=== PATIENT | male | born 1955 | race Caucasian/White ===

== ENCOUNTER 2024-07-04 07:08 | Outpatient (CLI) | payer MEDICARE, SELFPAY ==
--- NOTE | ~2024-07-04 | CT_ITS ---
CT Scan of the Chest without Contrast: Clinical Indication: Lung cancer screening, nicotine dependence Technique: Contiguous sections were acquired throughout the chest without intravenous contrast. Dose reduction technique was used on this scan by utilizing automated exposure control and iterative recon struction technique. The dose-length product (DLP) was 98.97 mGy-cm. Findings: There is no evidence of any significant mediastinal, hilar or axillary lymphadenopathy. Coronary alpa ry calcifications are present. There is no evidence of pleural or pericardial effusion. The lungs are clear. No pulmonary nodules or infiltrates are noted. Images through the upper abdomen reveal no abnormalities. Impression: Lung RADS 1: Negative. 12 month follow-up screening CT advised. Reviewed, dictated and finalized at location . T HEALTH MANAGER Impression: Lung RADS 1: Negative. 12 month follow-up screening CT advised.
--- OUTSIDE RECORDS SUMMARY | 2024-07-04 07:15 | XMS_ITS | Data Portability ---
Author Organization [facility] MUMTAZNani [facility] Address [address] [place], [place] [address] [address] Assessment No assessment recorded. Plan of Treatment Reminders Order Date Submit Date Provider Last Modified By Organization Details Last Modified Time Details Appointments None recorded. Lab vitamin B12 + folate, serum or blood 2018 019 SYLWIA AstridMABEL, [address] [place], [place] [address] William, [address], [place], [address], 9 08:24:41 PSA, serum or plasma 2017 018 SYLWIA LABMABELRP, [address] [place], [place] [address]Something[employer]ie William, [address], [place], [address], 8 13:11:42 CMP, serum or plasma 2016 017 SYLWIA LABMBAEL, [address] [place], [place] [address]SomethingIndie William, [address], [place], [address], 7 06:14:52 PSA, total + free, serum or plasma 2016 017 [facility], [address] [place], [place] [address]SomethingIndie William, [address], [place], [address], 7 06:14:52 hemoglobin , qualitativ e, stool by immunologi c method 2016 017 SYLWIA AstridMABEL, [facility] [employer] William, [address], [place], [address], 7 17:19:05 Referral gastroente rologist referral - please contact patient to schedule thanks 2017 018 Alessandro Bucio MD, [address], [address], [place], [address], 9 16:16:37 gastroente rologist referral - Please call patient to schedule appt. alconchucho 2016 017 [email or web address] Eric Galdamez MD, [address] [place], [address], 7 15:21:34 Procedures None recorded. Surgeries None recorded. Imaging None recorded. Medication Orders omeprazole 40 mg capsule,de layed release 2018 019 [facility], [address] [place], [address], 9 13:21:36 losartan 100 mg-hydroch lorothiazi de 25 mg tablet 2018 019 [facility], [address] [place], [address], 9 13:21:35 omeprazole 20 mg capsule,de layed release 2017 018 [facility], [address] [place], [address], 9 12:55:00 losartan 100 mg-hydroch lorothiazi de 25 mg tablet 2017 018 [facility], [address] [place], [address], 8 16:40:14 omeprazole 40 mg capsule,de layed release 2017 018 [facility], [address] [place], [address], 8 16:32:53 losartan 100 mg-hydroch lorothiazi de 25 mg tablet 2017 018 [facility], [address] [place], [address], 8 16:32:54 finasterid e 5 mg tablet 2017 018 [facility], [address] [place], [address], 9 12:54:31 omeprazole 40 mg capsule,de layed release 2016 017 [facility], [address] [place], [address], 7 17:14:35 losartan 100 mg-hydroch lorothiazi de 25 mg tablet 2016 017 [facility], [address] [place], [address], 7 17:14:37 trazodone 50 mg tablet 2016 017 [facility], [address] [place], [address], 8 16:21:15 finasterid e 5 mg tablet 2016 017 [facility], [address] [place], [address], 9 12:54:31 Patient TargetsNo targets recorded. Patient Instructions Encounter Date Encounter Id Patient Instructions Last Modified By Organization Details Last Modified Time 11/24/2016 [id number] insomnia: care instructions [facility] Not available 11/24/2016 17:19:13 07/18/2017 [id number] learning about high blood pressure [facility] Not available 07/18/2017 16:29:24 benign prostatic hyperplasia: care instructions [facility] Not available 07/18/2017 16:29:24 01/17/2018 [id number] learning about high blood pressure [facility] Not available 01/17/2018 16:29:43 10/03/2018 [id number] learning about high blood pressure [facility] Not available 10/03/2018 13:10:54 03/20/2019 [id number] influenza (flu) vaccine: care instructions [facility] Not available 03/20/2019 15:57:12 Reason for Referral Please call patient to daniella salgado Referring Physician: Alyson Stack, Internal Medicine, Encounter Date: 11/24/2016 Granular Operator Referral for Screening for malignant neoplasm of colon please contact patient to schedule thanks Referring Physician: Alyson Stack, Internal Medicine, Encounter Date: 01/17/2018 Results Created Date Observation Date Name Description Value Unit Range Abnormal Flag Note LastModifiedBy Organization Detail LastModifiedTime 12/10/19 17 12/10/2016 CMP, serum or plasm a glucose, serum 103 mg/dL 65-99 above high normal Not Available [facility] ([facility]) [address] [place], [address], 12/10/2016 06:14:52 12/10/19 17 12/10/2016 CMP, serum or plasm a BUN 14 mg/dL 6-24 Not Available [facility] ([facility]) [address] [place], [address], 12/10/2016 06:14:52 12/10/19 17 12/10/2016 CMP, serum or plasm a creatinine, serum 0.95 mg/dL 0.76-1 .27 Not Available [facility] ([facility]) [address] [place], [address], 12/10/2016 06:14:52 12/10/19 17 12/10/2016 CMP, serum or plasm a eGFR if nonafricn AM 87 mL/mi n/1.7 3 >59 Not Available [facility] ([facility]) [address] [place], [address], 12/10/2016 06:14:52 12/10/19 17 12/10/2016 CMP, serum or plasm a eGFR if africn AM 101 mL/mi n/1.7 3 >59 Not Available [facility] ([facility]) [address] [facility], [place], [address], 12/10/2016 06:14:52 12/10/19 17 12/10/2016 CMP, serum or plasm a BUN/creatini ne ratio 15 9-20 Not Available [facility] ([facility]) [address] [facility] [place], [address], 12/10/2016 06:14:52 12/10/19 17 12/10/2016 CMP, serum or plasm a sodium, serum 140 mmol/ L 134-14 4 Not Available [facility] ([facility]) [address] [facility], [place], [address], 12/10/2016 06:14:52 12/10/19 17 12/10/2016 CMP, serum or plasm a potassium, serum 5.0 mmol/ L 3.5-5. 2 Not Available [facility] ([facility]) [address] [facility], [place], [address], 12/10/2016 06:14:52 12/10/19 17 12/10/2016 CMP, serum or plasm a chloride, serum 97 mmol/ L 96-106 Not Available [facility] ([facility]) [address] [facility], [place], [address], 12/10/2016 06:14:52 12/10/1912/10/2016 CMP, serum or plasm a carbon dioxide, total 27 mmol/ L 18-29 Not Available [facility] ([facility]) [address] [facility] [place], [address], 12/10/2016 06:14:52 12/10/1912/10/2016 CMP, serum or plasm a calcium, serum 9.5 mg/dL 8.7-10 .2 Not Available [facility] ([facility]) [address] [place], [address], 12/10/2016 06:14:52 12/10/1912/1012/10/2016 CMP, serum or plasm a protein, total, serum 7.1 g/dL 6.0-8. 5 Not Available [facility] ([facility]) [address] [facility] [place], [address], 12/10/2016 06:14:52 12/10/19 17 12/10/2016 CMP, serum or plasm a albumin, serum 4.6 g/dL 3.5-5. 5 Not Available [facility] ([facility]) [address] [facility] [place], [address], 12/10/2016 06:14:52 12/10/1912/10/2016 CMP, serum or plasm a globulin, total 2.5 g/dL 1.5-4. 5 Not Available [facility] ([facility]) [address] [facility] [place], [address], 12/10/2016 06:14:52 12/10/1912/10/2016 CMP, serum or plasm a A/G ratio 1.8 1.2-2. 2 Not Available [facility] ([facility]) [address] [facility] [place], [address], 12/10/2016 06:14:52 12/10/1912/10/2016 CMP, serum or plasm a bilirubin, total 0.3 mg/dL 0.0-1. 2 Not Available [facility] ([facility]) [address] [facility] [place], [address], 12/10/2016 06:14:52 12/10/1912/10/2016 CMP, serum or plasm a alkaline phosphatase, S 62 IU/L 39-117 Not Available [facility] ([facility]) [address] [facility] [place], [address], 12/10/2016 06:14:52 12/10/1912/10/2016 CMP, serum or plasm a AST (SGOT) 20 IU/L 0-40 Not Available [facility] ([facility]) [address] [facility], [place], [address], 12/10/2016 06:14:52 12/10/1912/10/2016 CMP, serum or plasm a ALT (SGPT) 30 IU/L 0-44 Not Available [facility] ([facility]) [address] [facility], [place], [address], 12/10/2016 06:14:52 12/10/1912/10/2016 PSA, total + free, serum or plasm a prostate specific Ag, serum 1.0 NG/mL 0.0-4. 0 ANTHONY ECLIA METHO DOLOG Y. ACCOR DING TO THE AMERI CAN UROLO GICAL ASSOC IATIO N, SERUM PSA SHOUL D DECRE ASE AND REMAI N AT UNDET ECTAB LE LEVEL S AFTER RADIC AL PROST ATECT JORDAN. THE AUA DEFIN ES BIOCH EMICA L RECUR RENCE AN INITI AL PSA VALUE 0.2 NG/ML OR GREAT ER FOLLO WED BY A SUBSE QUENT CONFI RMATO RY PSA VALUE 0.2 NG/ML OR GREAT ER. VALUE S OBTAI KRANTHI WITH DIFFE RENT ASSAY METHO DS OR KITS CANNO T BE USED INTER WEISS INGRID . RESUL TS CANNO T BE INTER PRETE D ABSOL [place] EVIDE NCE OF THE PRESE NCE OR ABSEN CE OF [place] SE. Not Available [facility] ([facility]) [address] [facility], [place], [address], 12/10/2016 06:14:52 12/10/1912/10/2016 PSA, total + free, serum or plasm a PSA, free 0.25 NG/mL n/a ANTHONY ECLIA METHO DOLOG Y. Not Available [facility] ([facility]) [address] [facility], [place], [address], 12/10/2016 06:14:52 12/10/1912/10/2016 PSA, total + free, serum or plasm a % free PSA 25.0 % THE TABLE BELOW LISTS THE PROBA BILIT Y OF PROST ATE CANCE R FOR MEN WITH NON-S USPIC IOUS LYSSA RESUL TS AND TOTAL PSA BETWE EN 4 AND 10 NG/ML , BY PATIE NT AGE (RYDER ROMAIN ET AL, JEANNE 1998, 279:1 542). % FREE PSA 50-64 YR 65-75 YR 0.00- 10.00 % 56% 55% 10.01 -15.0 0% 24% 35% 15.01 -20.0 0% 17% 23% 20.01 -25.0 0% 10% 20% >25.0 0% 5% 9% PLEAS E NOTE: MARION BEARDEN ET AL DID NOT MAKE SPECI FIC RECOM MENDA TIONS REGAR DING THE USE OF PERCE NT FREE PSA FOR ANY OTHER POPUL ATION OF MEN. Not Available [facility] ([facility]) [address] [facility], [place], [address], 12/10/2016 06:14:52 07/19/19 18 07/19/2017 PSA, serum or plasm a prostate specific Ag, serum 0.4 NG/mL 0.0-4. 0 Anthony ECLIA metho dolog y. Accor ding to the Ameri can Urolo gical Assoc iatio n, Serum PSA shoul d decre ase and remai n at undet ectab le level s after radic al prost atect jordan. The AUA defin es bioch emica l recur rence as an initi al PSA value 0.2 ng/mL or great er follo wed by a subse quent confi rmato ry PSA value 0.2 ng/mL or great er. Value s obtai kranthi with diffe rent assay metho ds or kits canno t be used inter weiss eably . Resul ts canno t be inter prete d as absol [place] evide nce of the prese nce or absen ce of [place] se. Not Available [facility] ([facility]) [address] [facility], [place], [address], 07/19/2017 13:11:42 03/20/20 19 03/21/2019 vitam in B12 + folat e, serum or blood vitamin B12 1068 pg/mL 232-12 45 Not Available [facility] ([facility]) [address] [facility], [place], [address], 03/21/2019 08:24:41 03/20/20 19 03/21/2019 vitam in B12 + folat e, serum or blood folate (folic acid), serum >20.0 NG/mL >3.0 A serum folat e elsi ntrat ion of less than 3.1 ng/mL is consi dered to repre sent clini seth defic iency . Not Available [facility] ([facility]) [address] [facility], [place], [address], 03/21/2019 08:24:41 02/07/20 20 02/07/2020 LDCT, chest , for lung josece r lyric mitchell No observ ation record ed. [facility] ([facility]) [address] [place], [address], 02/08/2020 14:26:28 Result Notes None recorded. Problems Name Problem SNOMED Code Status Onset Date Resolution Date Notes Provider Name and Address Organization Details Recorded Time Cyclical vomiting syndrome 37749672 Active Alyson Stack MD Attn: Adan gupta,[address] [place], [address], [place] [facility] 6 10:54:26 Shoulder pain 39156485 Active Temitope Hancock LPN null, [place] [facility] 5 09:07:46 Hypertensive disorder 57124339 Active Alyson Stack MD Attn: Adan gupta,[address] [place], [address], [place] [facility] 6 10:54:26 Chronic pain syndrome 903330036 Active Alyson Stack MD Attn: Adan gupta,[address] [place], [address], [place] [facility] 6 10:54:26 Problem Notes None recorded. Procedures Surgical History Date Name Laterality Status Provider Name and Address Organization Details Recorded Time 4 Diagnostic colonoscopy completed Cory Coats [place] [facility] 12/05/2014 16:05:51 Knee Surgery completed Cory Coats [place] [facility] 12/05/2014 16:05:51 Imaging Results Imaging Date Name Status LastModified by Organiz ation Details LastModified Time 02/07/2020 LDCT, chest, for lung cancer screening completed [facility] ([facility]) [address], [place], [address], 02/08/2020 14:26:28 Procedure Notes None recorded. Medical Equipment None Reported. Allergies No known drug allergies Medications Name Sig Start Date Stop Date Status Note LastModified by Organization Details LastModified Time Prescriptio n - New 10/03 completed Not Available Not Available Not Available trazodone 50 mg tablet Take 1 tablet as needed by oral route at bedtime for 30 days. 07/18 completed Not Available Not Available Not Available ondansetron HCl 4 mg tablet Take 1 tablet twice a day by oral route as needed for 30 days. 11/24 completed Not Available Not Available Not Available omeprazole 40 mg capsule,del ayed release TAKE 1 CAPSULE DAILY active Not Available Not Available No t Available losartan 100 mg-hydrochl orothiazide 25 mg tablet Take 1 tablet every day by oral route as directed for 30 days. active Not Available Not Available No t Available fentanyl 100 mcg/hr transdermal patch 03/20 completed Not Available Not Available Not Available amlodipine 10 mg tablet take one tablet by mouth daily 11/24 completed Not Available Not Available Not Available morphine 30 mg immediate release tablet active Not Available Not Available Not Available trazodone 150 mg tablet 10/03 completed Not Available Not Available Not Available hydrochloro thiazide 12.5 mg capsule 03/20 completed Not Available Not Available Not Available omeprazole 20 mg capsule,del ayed release Take 1 capsule every day by oral route before meals for 30 days. 10/03 completed Not Available Not Available Not Available oxycodone 30 mg tablet 07/18 completed Not Available Not Available Not Available amitriptyli ne 100 mg tablet Take 1 tablet(s) every day by oral route for 30 days. 2018 active Not Available Not Available Not Avai lable finasteride 5 mg tablet Take 1 tablet every day by oral route as directed for 30 days. 10/03 completed Not Available Not Available Not Available metoclopram giles 10 mg tablet Take 1 tablet twice a day by oral route for 30 days. 11/24 completed Not Available Not Available Not Available mirtazapine 7.5 mg tablet 11/24 completed Not Available Not Available Not Available losartan 100 mg-hydrochl orothiazide 12.5 mg tablet 03/20 completed Not Available Not Available Not Available GaviLyte-G 236 gram-22.74 gram-6.74 gram-5.86 gram oral solution 10/03 completed Not Available Not Available Not Available OxyContin 40 mg tablet,pratima h resistant,e xtended release active Not Available Not Available Not Available OxyContin 60 mg tablet,pratima h resistant,e xtended release 03/20 completed Not Available Not Available Not Available OxyContin 80 mg tablet,pratima h resistant,e xtended release 03/20 completed Not Available Not Available Not Available Movantik 25 mg tablet Take 1 tablet by oral route for 30 days. 03/20 completed Not Available Not Available Not Available Belbuca 900 mcg buccal film 03/20 completed Not Available Not Available Not Available Vitals Date Recorded Body height Body mass index (BMI) Body weight Body temperature Oxygen saturation Oxygen saturation in Arterial blood by Pulse oximetry Heart rate Systolic blood pressure Diastolic blood pressure Provider Name and Address Organization Details Last Updated DateTime 8 167.64 cm 31 kg/m2 11610.0 2 g 98.1 [degF] 97 % 97 % 87 /min 126 mm[Hg] 70 mm[Hg] Cory Coats [place] [facility] 8 16:23:57 Date Recorded Body height Body mass index (BMI) Body weight Heart rate Body temperature Oxygen saturation Oxygen saturation in Arterial blood by Pulse oximetry Provider Name and Address Organization Details Last Updated DateTime 8 167.64 cm 30.3 kg/m2 15929.9 7 g 88 /min 98.1 [degF] 96 % 96 % Juany Pacheco [place] [facility] 8 16:05:51 Date Recorded Systolic blood pressure Diastolic blood pressure Provider Name and Address Organization Details Last Updated DateTime 01/17/2018 120 mm[Hg] 80 mm[Hg] Alyson Stack MD Attn: Accounting,[address] [facility], [place], [address], [facility] 01/17/2018 16:26:41 Date Recorded Body height Body mass index (BMI) Body weight Body temperature Oxygen saturation Oxygen saturation in Arterial blood by Pulse oximetry Heart rate Systolic blood pressure Diastolic blood pressure Provider Name and Address Organization Details Last Updated DateTime 9 167.64 cm 29.8 kg/m2 20615.8 7 g 98.1 [degF] 94 % 94 % 96 /min 100 mm[Hg] 70 mm[Hg] Cory Coats MA [facility] 9 13:00:51 Date Recorded Body height Body mass index (BMI) Body weight Body temperature Oxygen saturation Oxygen saturation in Arterial blood by Pulse oximetry Heart rate Systolic blood pressure Diastolic blood pressure Provider Name and Address Organization Details Last Updated DateTime 9 167.64 cm 29.4 kg/m2 34303.8 1 g 97.3 [degF] 95 % 95 % 94 /min 96 mm[Hg] 66 mm[Hg] Cory Coats MA [facility] 9 15:48:06 Date Recorded Body height Body mass index (BMI) Body weight Body temperature Oxygen saturation Oxygen saturation in Arterial blood by Pulse oximetry Heart rate Systolic blood pressure Diastolic blood pressure Provider Name and Address Organization Details Last Updated DateTime 7 167.64 cm 30.5 kg/m2 20913.9 6 g 97.7 [degF] 96 % 96 % 87 /min 108 mm[Hg] 70 mm[Hg] Cory Coats MA [facility] 7 16:47:34 Social History Question Answer Notes LastModified by Organizat ion Details LastModified Time Tobacco Smoking Status Former Smoker cigarettes Cory Coats MA null, [facility] 12/05/2014 16:05:51 What Is Your Level Of Alcohol Consumption? None Information not available 12/05/2014 What Was The Date Of Your Most Recent Tobacco Screening? 01/17/2018 Information not available 12/07/2018 How Many Years Have You Smoked Tobacco? 5 Information not available 12/05/2014 Sex: Unknown Functional Status None recorded. Mental Status None recorded. Family History Nothing Reported. Medical History No medical history recorded. Immunizations Vaccine Type Date Status Note Provider Nam e and Address Organization Details Recorded Time COVID-19, mRNA, LNP-S, PF, 30 mcg/0.3 mL dose 1 completed Jorge Luis Younger null, [place] [facility] 11/12/2020 16:39:53 COVID-19, mRNA, LNP-S, PF, 30 mcg/0.3 mL dose 1 completed Jorge Luis Younger null, [place] [facility] 11/12/2020 16:40:10 Influenza, split virus, quadrivalent, preservative 6 completed Not Available [facility] 06/02/2019 02:40:55 Influenza, split virus, quadrivalent, preservative 8 completed Not Available [facility] 06/02/2019 02:44:14 Influenza, split virus, quadrivalent, preservative 9 completed Not Available [facility] 06/02/2019 02:38:44 Td (adult), 5 Lf tetanus toxoid, preservative free, adsorbed 5 completed Not Available [facility] 06/02/2019 02:41:30 Past Encounters Encounter ID Performer Location Encounter Start Date Encounter Closed Date Diagnosis/Indication Diagnosis SNOMED-CT Code Diagnosis ICD10 Code Diagnosis Note [id number] [facility] [address] [place] [phone] 12/05/2014 15:51:34 12/05/2014 16:58:20 Adult health examination [id number] Cyclical v omiting syndrome 54729926 Ex-smoker 1290179 [id number] [facility] (Adult Med) [address] [place] [phone] 09/29/2015 10:19:16 09/29/2015 10:57:18 Cyclical vomiting syndrome 97990211 G43.A0 Hypertensive disorder 38 085038 I10 Chronic pain syndrome 37 0094729 G89.4 [id number] MD Gilbert Ramos (Adult Med) [address] [place] [phone] 03/29/2016 10:08:01 03/29/2016 11:55:05 Cyclical vomiting syndrome 96362305 G43.A0 Chronic pain syndrome 37 8558332 G89.4 Hypertensive disorder 38 864005 I10 Drug-induc ed constipation 93707494 K59.03 Chronic ob structive pulmonary disease 36443021 J44.9 Tobacco de pendence syndrome 33341663 F17.290 Needs infl uenza immunization 259150461 Z23 [id number] [facility] [address] [place] [phone] 11/24/2016 15:42:35 11/24/2016 17:22:27 Chronic low back pain 427541313 M54.5 Under the care of pain management . Hypertensive disorder 38 963058 I10 Low salt diet. Acid reflux 417444263 K2 1.9 Avoid grease food, or lie down after full meal. 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 Insomnia 955590119 G47.0 0 Screening for malignant neoplasm of colon 855146861 Z12.11 Under the care of his GI specialist Dr. Giselle Combs , he will be reminded for the F/U colonoscop y ex. [facility] [address] [place] [id number] 07/18/2017 16:08:55 07/18/2017 16:33:19 Acid reflux 607176999 K21.9 Avoid grease food, or lie down after full meal. Essential hypertension 55880200 I10 Low salt diet. Benign pro static hyperplasia 872679382 N40.0 Hypertensive disorder 38 033219 I10 Low salt diet. [id number] [facility] [address] [place] [phone] 01/17/2018 15:42:23 01/19/2018 13:15:39 Administration of influenza vaccine 50707340 Z23 He tolerated flu shot well. Essential hypertension 41019620 I10 Low salt diet. Well controlled . Acid reflux 207227585 K2 1.9 Avoid grease food, or lie down after full meal. Screening for malignant neoplasm of colon 654062653 Z12.11 Under the care of his GI specialist Dr. Giselle Combs , he will be reminded for the F/U colonoscop y ex. [id number] MD Gilbert Ramos (Adult Med) [address] [place] [address] 10/03/2018 12:18:55 10/03/2018 13:11:13 Essential hypertension 44776486 I10 Low salt diet. Well controlled . Cyclical v omiting syndrome 85686047 G43.A0 [id number] MD Gilbert Ramos (Adult Med) [address] [place] [phone] 03/20/2019 14:56:51 03/21/2019 10:22:15 Hypertensive disorder 53251893 I10 Low salt diet. Cyclical v omiting syndrome 59908751 G43.A0 Stable. Vitamin B1 2 deficiency (non anemic) 14391337 E53.8 Discussed with patient, he agreed for the blood test to determine if he has B12 deficiency . Administra tion of influenza vaccine 74255325 Z23 He tolerated flu shot well. Health Concerns Section Related Observation LastModified by Organization Detai ls LastModified Time None Recorded Concern Status LastModified by Organization Details LastModified Time None Recorded Advance Directives Directive None Recorded Payers Encounter Date Sequence Insurance Name Policy Number Policy Bennett Covered Member ID Bennett Member ID Guarantor Name 11/24/2016 1 [place] [id number] Benitez Warner [id number] Benitez Warner 07/18/2017 1 [place] [id number] Benitez Warner [id number] Benitez Warner 01/17/2018 1 [place] [id number] Benitez Chesnee [id number] Benitez Chesnee 10/03/2018 1 [place] [id number] Benitez Chesnee [id number] Benitez Chesnee 03/20/2019 1 [place] [id number] Benitez Warner [id number] Benitez Chesnee Notes Date Note Type Note Provider Name and Address Organization Details Recorded Time 11/24/2016 text/html Weight gained, h e also goes to pain management, has sleeping disturbance , disabling from chronic pain syndrome, NKDA, not a smoker, nor a alcohol drinker. On movantik , has had epidural shots, on oxycondein also . Alyson Stack MD Attn: Accounting,[address] [place], [address], [facility] - [place] 11/24/2016 17:19:41 07/18/2017 text/html check up and refills of medications, no other complaints. NKDA. Cory Coats MA [facility], [place] - [place] 07/18/2017 18:07:00 01/17/2018 text/html Re-evaluate the acid reflux, and hypertension , he seems doing well for thes issues. NKDA. PSA in July 2017 is normal 0. 4, he is informed today, he has no urinary tract symptomes. He forgot the number to call for his colonoscope ex. scheduling. Alyson Stack MD Attn: Accounting,[address] [place], [address], [facility] 01/17/2018 16:31:06 10/03/2018 text/html Old left ear issue, also chronic lower back pain for decades, and left foot pain even which has been operated on many years ago. , seeing a specialist for narcotic pain medication. NKDA. Refills of medications for BP and stomach. Alyson Stack MD Attn: Accounting[address] [place], [address], [facility] 10/03/2018 13:10:59 03/20/2019 text/html Lack of energy. wanting B12 shot , NKDA. has enough medictions refilled. Alyson Stack MD Attn: Accounting[address] [place], [address], [facility] 03/20/2019 16:07:43
--- OUTSIDE RECORDS SUMMARY | 2024-07-04 07:16 | XMS_ITS | Continuity of Care Document ---
Author Organization [facility] Address [address] [place] [address] [place] [id number] Phone Care Team Providers Care Item Repair Manager Name Role Phone No Information Unavailable Unavailable Procedures Procedure Date Therapeutic Exercise ELECTRICAL STIMULATION Manual Therapy Therapeutic Exercise Neuromuscular Re-Ed Therapeutic Exercise Neuromuscular Re-Ed Manual Therapy Neuromuscular Re-Ed Therapeutic Exercise Therapeutic Exercise Neuromuscular Re-Ed Manual Therapy Neuromuscular Re-Ed Therapeutic Exercise Manual Therapy Electrical Stimulation Neuromuscular Re-Ed each 15 min 013 Manual Therapy each 15 min Therapeutic Exercise each 15 min 2012 Electrical Stimulation Manual Therapy each 15 min Neuromuscular Re-Ed each 15 min 013 Neuromuscular Re-Ed each 15 min 013 Electrical Stimulation Therapeutic Exercise each 15 min 2012 Manual Therapy each 15 min Electrical Stimulation Neuromuscular Re-Ed each 15 min 013 Therapeutic Exercise each 15 min 2012 Manual Therapy each 15 min Manual Therapy each 15 min Electrical Stimulation Neuromuscular Re-Ed each 15 min 013 Therapeutic Exercise each 15 min 2012 Electrical Stimulation Therapeutic Exercise each 15 min 2012 Manual Therapy each 15 min Manual Therapy each 15 min Therapeutic Exercise each 15 min 2012 Electrical Stimulation Therapeutic Exercise Manual Therapy Electrical Stimulation Therapeutic Exercise each 15 min 2012 Electrical Stimulation Manual Therapy Each 15min PT Evaluation Therapeutic Exercise each 15 min 2012 Electrical Stimulation Advance Directives Directive Yes / No Effective Date File Name No Information Encounters Encounter Description Practice Location Reason(s) For Visit Diagnoses Date Provider Providers Copied on Encounter [facility], [address], [id number], tel:[phone] No Information 0 1-201 3 No Information [facility], [address], [id number], tel:[phone] [facility] Oct-0 8-201 3 Steffany Coronado. [address] [place] [address], [address], . tel:[phone] [facility], [address], [id number], tel:[phone] [facility] Oct-0 1-201 3 Bayerluisa Coronado. [address] [place] [address], [address], . tel:[phone] [facility], [address], [id number], tel:[phone] [facility] Sep-2 6-201 3 Bayerluisa Coronado. [facility] [place], [address], [place]. tel:[phone] [facility], [address], [id number], tel:[phone] [facility] Sep-2 4-201 3 Bayerluisa Coronado. [address] [place] [address], [address], [place]. tel:[phone] [facility], [address], [id number], [place] tel:[phone] [facility] Sep-2 0-201 3 [place]. [facility] [place], [address], [place]. tel:[phone] [facility], [address], [place], [place], [id number], [place] tel:[phone] [facility] Sep-1 8-201 3 [place]. [address] [place], [address], [place]. tel:[phone] [facility], [address], [place], [place], [id number], [place] tel:[phone] [facility] SciaticaL[facility] Zeke-1 9-201 3 [place]. [address] [place], [address], [place]. tel:[phone], [address], [place], [place], [id number], [place] tel:[phone] [facility] SciaticaLumbago Zeke-1 6-201 3 [place]. [facility] [place], [address], [place]. tel:[phone] [facility], [address] [facility], [place], [place], [id number], [place] tel:[phone] [facility] LumbagoSciatica Nov-1 2-201 3 [place]. [facility] [place], [address], [place]. tel:[phone] [facility], [address], [place], [place], [id number], [place] tel:[phone] [facility] SciaticaLumbago Zeke-0 9-201 3 [place]. [facility] [place], [address], [place]. tel:[phone] [facility], [address], [place], [place], [id number], [place] tel:[phone] [facility] SciaticaLumbago Zeke-0 2-201 3 [place]. [address] [place], [address], . tel:[phone] [facility], [address], [id number], tel:[phone] [facility] [address] [place]. [facility] [place], [address], . tel:[phone] [facility], [address], [id number], tel:[phone] [facility] [address] [place]. [facility], [address], . tel:[phone] [facility], [address], [id number], tel:[phone] [facility] [address] [place]. [place], [address], . tel:[phone] [facility], [address], [id number], tel:[phone] [facility] [address] [place]. [place], [address], . tel:[phone], [address], [id number], tel:[phone] [facility] [address] [place]. [place], [address], . tel:[phone] Family History Family Member Type Diagnosis Age At Onset No Information Payers Payer name Insurance type Covered libertarian ID Eder montano(s) [employer] [id number] [facility] [employer] Social History Type Description Quantity Date Captured Comments Sex Male Smoking Status No Information Chief Complaint And Reason For Visit No Information Reason For Referral Reason For Referral No Information History Of Present Illness Encounter Date Complaint History Of Prese nt Illness No Information Functional Status Date Functional Assessmen t No Information Instructions Date Instruction Additional Infor mation No Information Assessments Type Assessment Date No Information Patient Care Teams Name Effective Dates (start - stop) Status Members No Information
--- OUTSIDE RECORDS SUMMARY | 2024-07-04 07:16 | XMS_ITS | Referral Summary ---
Author Organization [facility] Care Team Providers Care Traveling Electrician Name Role Phone Unknown, Notinfile Primary Care Provider Unavail able Allergies No known active allergies Medications MOVANTIK 25 mg tablet Take 25 mg by mouth daily 5 10/16/2018 Active omeprazole (PriLOSEC) 40 mg capsule Take 1 capsule by mouth daily Active OXYCONTIN 80 mg 12 hr abuse-deterrent tablet Take 3 tablets by mouth 2 (two) times a day 0 12/30/2018 Active losartan-hydroc hlorothiazide (HYZAAR) 100-25 mg per tablet Take 1 tablet by mouth daily Active buprenorphine HCl (BELBUCA) 900 mcg film Apply 1 Film to mouth daily as needed Active oxyCODONE ER (OxyCONTIN) 60 mg tablet,oral only,ext.rel.12 hr Take 1 tablet (60 mg total) by mouth 3 (three) times a day 90 tablet 01/31/2019 Active oxyCODONE ER (OxyCONTIN) 40 mg 12 hr abuse-deterrent tabletIndicatio ns:chronic pain Take 1 tablet (40 mg total) by mouth every 12 (twelve) hours 60 tablet 05/03/2019 Active morphine (MSIR) 30 mg tabletIndicatio ns:chronic pain Take 1 tablet (30 mg total) by mouth 2 (two) times a day as needed for pain 60 tablet 05/03/2019 Active oxyCODONE ER (OxyCONTIN) 30 mg tablet,oral only,ext.rel.12 hrIndications:C omplex regional pain syndrome type 1 of left lower extremity,Chron ic bilateral low back pain without sciatica Take 1 tablet (30 mg total) by mouth every 12 (twelve) hours 60 tablet 05/03/2019 Active Active Problems Problem Noted Date Diagnosed Date Complex regional pain syndro me type 1 of left lower extremity 01/16/2019 Right hand pain 01/16/2019 Chronic pain of right knee 01/16/2019 Left foot pain 01/16/2019 Long-term current use of opiate analgesic 2018 Chronic bilateral low back pain without sciatica 01/16/2019 Constipation due to opioid therapy 01/16/2019 Social History Tobacco Use Types Packs/Day Years Used Date Smoking Tobacco: Former Smokeless Tobacco: Never Personal Safety Answer Date Recorded Getting School Help Needed Not on file 07/29 Sex and Gender Information Value Date Recorded Sex Assigned at Not on file 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 Gender Identity Not on file Sexual Orientation Not on file Last Filed Vital Signs Vital Sign Reading Time Taken Comments Blood Pressure 117/86 03/01/2019 2:34 PM CDT Pulse 108 03/01/2019 2:34 PM CDT Temperature 36.6 C (97.8 F) 03/01/2019 2:34 PM CDT Respiratory Rate 20 03/01/2019 2:34 PM CDT Oxygen Saturation 97% 03/01/2019 2:34 PM CDT Inhaled Oxygen Concentration - - Weight 81.5 kg (179 lb 9.6 oz) 01/16/2019 9:19 A M CDT Height 170.2 cm (5' 7 ) 01/16/2019 9:19 AM CDT Body Mass Index 28.13 01/16/2019 9:19 AM CDT Plan of Treatment Not on file Insurance Care Teams Traveling Electrician Relationship Specialty Start Date End Date Unknown, Notinfile PCP - General 01/16/19
--- OUTSIDE RECORDS SUMMARY | 2024-07-04 07:16 | XMS_ITS | Clinical Summary ---
Author Organization [facility] Care Team Providers Care Photography Spotter Name Role Phone Unknown, Notinfile Primary Care [...] 01/16/2019 Constipation due to opioid therapy 01/16/2019 Surgical History Surgery Date Site/Laterality Comments KNEE SURGERY KNEE CARTILAGE SURGERY Right WRIST FUSION Right FOOT SURGERY Left Medical History Medical History Date Comments Hypertension Arthritis History of degenerative disc disease Cyclic vomiting syndrome Social History Tobacco Use Types Packs/Day Years Used Date Smoking Tobacco: Former Smokeless Tobacco: Never Personal Safety Answer Date Recorded Getting School Help Needed Not on file 07/29 Sex and Gender Information Value Date Recorded Sex Assigned at Not on file 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
[2024-07-04 08:06] LABS: Hematocrit 50.2 % (42.0-52.0); Hemoglobin 16.9 g/dL (14.0-18.0); Mean Corpuscular HGB Conc 33.7 g/dl (32-36); Mean Corpuscular Hemoglobin 30.6 pg (26-34); Mean Corpuscular Volume 90.8 fl (80-100); Mean Platelet Volume 9.5 fl (7.4-10.4); Platelet Count Result 249 k/mm3 (150-375); Red Blood Count 5.53 M/mm3 (4.6-6.20); Red Cell Distribution Width 12.2 % (11.5-14.5); White Blood Count 6.5 K/mm3 (4.5-10.0)
[2024-07-04 08:31] LABS: Add Urine Microscopic? YES; Appearance Urine Clear (Clear); Bacteria Urine None Seen /hpf; Bilirubin Urine Negative (Negative); Blood Urine Negative (Negative); Color Urine Yellow (Yellow); Glucose Urine UA Negative (Negative); Ketones Urine Negative (Negative); Leukocyte Esterase Ur Trace LEU/UL (Negative); Nitrate Urine Negative (Negative); Non Pathogenic Casts 0-2; Protein Urine Negative (Negative); Squamous Epithelial Cell Urine None Seen /hpf (Few); Urobilinogen Urine 0.2 mg/dL (<2.0); WBC Urine 0-5 /hpf (0-3); pH Urine 6.5 (5.0-9.0)
[2024-07-04 09:04] LABS: Alanine Aminotransferase 29 U/L (6-50); Albumin Level 4.5 g/dL (3.5-5.1); Alkaline Phosphatase 56 U/L (38-126); Anion Gap 7 mmol/L (4-12); Aspartate Amino Transferase 24 U/L (17-59); Bilirubin,Total 0.6 mg/dL (0.2-1.3); Blood Urea Nitrogen 19 mg/dL (9-20); Calcium 9.4 mg/dL (8.4-10.2); Carbon Dioxide 34 mmol/L (22-30); Chloride 99 mmol/L (98-107); Cholesterol 203 mg/dL (0-200); Estimated Glomerular Filt Rate > 60; Glucose 102 mg/dL (65-110); HDL Direct 49 mg/dL; LDL Cholesterol Direct 118 mg/dL; Potassium 4.5 mmol/L (3.4-5.0); Sodium 140 mmol/L (137-145); Triglycerides 226 mg/dL (<150)
[2024-07-04 09:17] LABS: Mucus Urine Moderate /lpf
== END 2024-07-04 07:09 | disposition home or self-care (01) ==
PROVIDERS: PCP Family Medicine; Visit Provider Family Medicine
DX: Z12.2 Encounter for screening for malignant neoplasm of respiratory organs (principal); Z87.891 Personal history of nicotine dependence; I10 Essential (primary) hypertension; Z79.899 Other long term (current) drug therapy; G47.00 Insomnia, unspecified; G89.29 Other chronic pain; E87.5 Hyperkalemia; Z12.5 Encounter for screening for malignant neoplasm of prostate
CPT/HCPCS: 36415; 71271; 80053; 80061; 81001; 84153; 85027; 87086; G0103

== ENCOUNTER 2024-08-22 12:55 | Outpatient (CLI) | payer MEDICARE, SELFPAY ==
--- NOTE | ~2024-08-22 | US_ITS ---
EXAMINATION: US aorta [facility] DATE: 08/22/2024 13:36 INDICATION: Abdominal aortic aneurysm screening with risk factors of hypertension, hypercholesterolem ia and personal history of nicotine dependence. TECHNIQUE: Grayscale, color Doppler, and pulsed Doppler images of the aorta and common iliac arteries were obtained. COMPARISON: None. FINDINGS: The proximal aorta measures 2.0 cm. The mid aorta measures 1.8 cm. The distal aorta measures 1.5 cm. The right common iliac artery measures 0.9 cm. The left common iliac artery measures 1.0 cm. IMPRESSION: 1. Normal caliber abdominal aorta. Reviewed, dictated and finalized at location B.
--- OUTSIDE RECORDS SUMMARY | 2024-08-22 14:23 | XMS_ITS | Referral Summary ---
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
--- OUTSIDE RECORDS SUMMARY | 2024-08-22 14:23 | XMS_ITS | CONTINUITY OF CARE DOCUMENT ---
Author Name maxx lilly Address Unknown Organization [facility] Address [address] [place] [address] Phone [phone] Care Team Providers Care Parachute Rigger Name Role Phone maxx lilly Unavailable Unavailable INSURANCE PROVIDERS Payer name Policy type / Coverage type Eduardo red constitution party ID [facility] [id number]
--- OUTSIDE RECORDS SUMMARY | 2024-08-22 14:23 | XMS_ITS | Data Portability ---
Author Organization [facility] Address [address] [place], [place] [address] [address] Assessment No assessment recorded. Plan of Treatment Reminders Order Date Submit Date Provider Last Modified By Organization Details Last Modified Time Details Appointments None recorded. Lab vitamin B12 + folate, serum or blood 2018 019 SYLWIA FoxflyMABEL, [address] [place], [place] [address]Pixia William, [address], [place], [address], 9 08:24:41 PSA, serum or plasma 2017 018 SYLWIA LABMABELRP, [address] [place], [place] [address]Househappy William, [address], [place], [address], 8 13:11:42 CMP, serum or plasma 2016 017 SYLWIA LABMABEL, [address] [place], [place] [address]Househappy William, [address], [place], [address], 7 06:14:52 PSA, total + free, serum or plasma 2016 017 [facility], [address] [place], [place] [address]Househappy William, [address], [place], [address], 7 06:14:52 hemoglobin , qualitativ e, stool by immunologi c method 2016 017 SYLWIA FoxflyMABEL, [facility] [address], [address], [place], [address], 7 17:19:05 Referral gastroente rologist referral - please contact patient to schedule thanks 2017 018 Alessandro Bucio MD, [address], [address], [place], [address], 9 16:16:37 gastroente rologist referral - Please call patient to schedule appt. [email or web address] 2016 017 [email or web address] Eric Galdamez MD, [address] [place], [address], 7 15:21:34 Procedures None recorded. Surgeries None recorded. Imaging None recorded. Medication Orders omeprazole 40 mg capsule,de layed release 2018 019 [facility], [address] [place], [address], 9 13:21:36 losartan 100 mg-hydroch lorothiazi de 25 mg tablet 2018 019 [facility], [address] [place], [address], 9 13:21:35 omeprazole 20 mg capsule,de layed release 2017 018 [facility], [address] [place], [address], 9 12:55:00 losartan 100 mg-hydroch lorothiazi de 25 mg tablet 2017 018 [facility], [address] [place], [address], 8 16:40:14 omeprazole 40 mg capsule,de layed release 2017 018 [facility], [address] [place], [address], 8 16:32:53 losartan 100 mg-hydroch lorothiazi de 25 mg tablet 2017 018 [facility], [address] [place], [address], 8 16:32:54 finasterid e 5 mg tablet 2017 018 [facility], [address] [place], [address], 9 12:54:31 omeprazole 40 mg capsule,de layed release 2016 017 [facility], [address] [place], [address], 7 17:14:35 losartan 100 mg-hydroch lorothiazi de 25 mg tablet 2016 017 [facility], [address] [place], [address], 7 17:14:37 trazodone 50 mg tablet 2016 017 [facility], [address] [place], [address], 8 16:21:15 finasterid e 5 mg tablet 2016 017 [facility], [address] [place], [address], 9 12:54:31 Patient TargetsNo targets recorded. Patient Instructions Encounter Date Encounter Id Patient Instructions Last Modified By Organization Details Last Modified Time 11/24/2016 [id number] insomnia: care instructions [facility] Not available 11/24/2016 17:19:13 07/18/2017 [id number] learning about high blood pressure [facility] Not available 07/18/2017 16:29:24 benign prostatic hyperplasia: care instructions [facility] Not available 07/18/2017 16:29:24 01/17/2018 [id number] learning about high blood pressure [facility] Not available 01/17/2018 16:29:43 10/03/2018 [id number] learning about high blood pressure [facility] Not available 10/03/2018 13:10:54 03/20/2019 [id number] influenza (flu) vaccine: care instructions [facility] Not available 03/20/2019 15:57:12 Reason for Referral Please call patient to daniella salgado Referring Physician: Alyson Stack, Internal Medicine, Encounter Date: 11/24/2016 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 for Screening for malignant neoplasm of colon please contact patient to schedule thanks Referring Physician: Alyson Stack, Internal Medicine, Encounter Date: 01/17/2018 Results Created Date Observation Date Name Description Value Unit Range Abnormal Flag Note LastModifiedBy Organization Detail LastModifiedTime 12/10/19 17 12/10/2016 CMP, serum or plasm a glucose, serum 103 mg/dL 65-99 above high normal Not Available [facility] ([facility]) [address] [place], [address], 12/10/2016 06:14:52 12/10/19 17 12/10/2016 CMP, serum or plasm a BUN 14 mg/dL 6-24 Not Available [facility] ([facility]) [address] [place], [address], 12/10/2016 06:14:52 12/10/19 17 12/10/2016 CMP, serum or plasm a creatinine, serum 0.95 mg/dL 0.76-1 .27 Not Available [facility] ([facility]) [address] [place], [address], 12/10/2016 06:14:52 12/10/19 17 12/10/2016 CMP, serum or plasm a eGFR if nonafricn AM 87 mL/mi n/1.7 3 >59 Not Available [facility] ([facility]) [address] [place], [address], 12/10/2016 06:14:52 12/10/19 17 12/10/2016 CMP, serum or plasm a eGFR if africn AM 101 mL/mi n/1.7 3 >59 Not Available [facility] ([facility]) [address] [facility], [place], [address], 12/10/2016 06:14:52 12/10/19 17 12/10/2016 CMP, serum or plasm a BUN/creatini ne ratio 15 9-20 Not Available [facility] ([facility]) [address] [place], [address], 12/10/2016 06:14:52 12/10/19 17 12/10/2016 CMP, serum or plasm a sodium, serum 140 mmol/ L 134-14 4 Not Available [facility] ([facility]) [address] [facility], [place], [address], 12/10/2016 06:14:52 12/10/19 17 12/10/2016 CMP, serum or plasm a potassium, serum 5.0 mmol/ L 3.5-5. 2 Not Available [facility] ([facility]) [address] [facility], [place], [address], 12/10/2016 06:14:52 12/10/19 17 12/10/2016 CMP, serum or plasm a chloride, serum 97 mmol/ L 96-106 Not Available [facility] ([facility]) [address] [facility], [place], [address], 12/10/2016 06:14:52 12/10/1912/10/2016 CMP, serum or plasm a carbon dioxide, total 27 mmol/ L 18-29 Not Available [facility] ([facility]) [address] [place], [address], 12/10/2016 06:14:52 12/10/1912/10/2016 CMP, serum or plasm a calcium, serum 9.5 mg/dL 8.7-10 .2 Not Available [facility] ([facility]) [address] [place], [address], 12/10/2016 06:14:52 12/10/1912/1012/10/2016 CMP, serum or plasm a protein, total, serum 7.1 g/dL 6.0-8. 5 Not Available [facility] ([facility]) [address] [place], [address], 12/10/2016 06:14:52 12/10/19 17 12/10/2016 CMP, serum or plasm a albumin, serum 4.6 g/dL 3.5-5. 5 Not Available [facility] ([facility]) [address] [place], [address], 12/10/2016 06:14:52 12/10/1912/10/2016 CMP, serum or plasm a globulin, total 2.5 g/dL 1.5-4. 5 Not Available [facility] ([facility]) [address] [place], [address], 12/10/2016 06:14:52 12/10/1912/10/2016 CMP, serum or plasm a A/G ratio 1.8 1.2-2. 2 Not Available [facility] ([facility]) [address] [place], [address], 12/10/2016 06:14:52 12/10/1912/10/2016 CMP, serum or plasm a bilirubin, total 0.3 mg/dL 0.0-1. 2 Not Available [facility] ([facility]) [address] [place], [address], 12/10/2016 06:14:52 12/10/1912/10/2016 CMP, serum or plasm a alkaline phosphatase, S 62 IU/L 39-117 Not Available [facility] ([facility]) [address] [place], [address], 12/10/2016 06:14:52 12/10/1912/10/2016 CMP, serum or plasm a AST (SGOT) 20 IU/L 0-40 Not Available [facility] ([facility]) [address] [facility], [place], [address], 12/10/2016 06:14:52 12/10/1912/10/2016 CMP, serum or plasm a ALT (SGPT) 30 IU/L 0-44 Not Available [facility] ([facility]) [address] [facility], [place], [address], 12/10/2016 06:14:52 12/10/1912/10/2016 PSA, total + free, [...] CANNO T BE INTER PRETE D ABSOL [place] EVIDE NCE OF THE PRESE NCE OR ABSEN CE OF [place] [address]. Not Available [facility] ([facility]) [address] [facility], [place], [address], 12/10/2016 06:14:52 12/10/1912/10/2016 PSA, total + free, serum or plasm a PSA, free 0.25 NG/mL n/a ANTHONY ECLIA METHO DOLOG Y. Not Available [facility] ([facility]) [address] [facility], [place], [address], 12/10/2016 06:14:52 12/10/1912/10/2016 PSA, total + free, [...] POPUL ATION OF MEN. Not Available [facility] ([facility]) [address] [facility], [place], [address], 12/10/2016 06:14:52 07/19/19 18 07/19/2017 PSA, serum [...] t be inter prete d as absol cabazon evide nce of the prese nce or absen ce of [place] se. Not Available [facility] ([facility] [employer]) [address] [facility], [place], [address], 07/19/2017 13:11:42 03/20/20 19 03/21/2019 vitam in B12 + folat e, serum or blood vitamin B12 1068 pg/mL 232-12 45 Not Available [facility] ([facility]) [address] [facility], [place], [address], 03/21/2019 08:24:41 03/20/20 19 03/21/2019 vitam in B12 + folat e, serum or blood folate (folic acid), serum >20.0 NG/mL >3.0 A serum folat e elsi ntrat ion of less than 3.1 ng/mL is consi dered to repre sent clini seth defic iency . Not Available [facility] ([facility]) [address] [facility], [place], [address], 03/21/2019 08:24:41 02/07/20 20 02/07/2020 LDCT, chest , for lung josece r lyric mitchell No observ ation record ed. [facility] (Imaging) [address] [place], [address], 02/08/2020 14:26:28 Result Notes None recorded. Problems Name Problem SNOMED Code Status Onset Date Resolution Date Notes Provider Name and Address Organization Details Recorded Time Cyclical vomiting syndrome 07471102 Active Alyson Stack MD Attn: Adan gupta,[address] [place], [address], [place] - [facility] 6 10:54:26 Shoulder pain 10813614 Active Temitope Hancock LPN null, [place] - [facility] 5 09:07:46 Hypertensive disorder 24126072 Active Alyson Stack MD Attn: Adan gupta,[address] [place], [address], [place] [facility] 6 10:54:26 Chronic pain syndrome 873134374 Active Alyson Stack MD Attn: Adan gupta,[address] [place], [address], [place] [facility] 6 10:54:26 Problem Notes None recorded. Procedures Surgical History Date Name Laterality Status Provider Name and Address Organization Details Recorded Time 4 Diagnostic colonoscopy completed Cory Coats MA [place] - [facility] 12/05/2014 16:05:51 Knee Surgery completed Cory Coats MA [place] - [facility] 12/05/2014 16:05:51 Imaging Results Imaging Date Name Status LastModified by Organiz ation Details LastModified Time 02/07/2020 LDCT, chest, for lung cancer screening completed [facility] (Imaging) [address] [facility], [place], [address], 02/08/2020 14:26:28 Procedure Notes None recorded. Medical [...] Updated DateTime 8 167.64 cm 31 kg/m2 74895.0 2 g 98.1 [degF] 97 % 97 % 87 /min 126 mm[Hg] 70 mm[Hg] Cory Coats MA [place] - [facility] 8 16:23:57 Date Recorded Body height Body mass index (BMI) Body weight Heart rate Body temperature Oxygen saturation Oxygen saturation in Arterial blood by Pulse oximetry Provider Name and Address Organization Details Last Updated DateTime 8 167.64 cm 30.3 kg/m2 36375.9 7 g 88 /min 98.1 [degF] 96 % 96 % Juany Pacheco MA MD - [facility] 8 16:05:51 Date Recorded Systolic blood pressure Diastolic blood pressure Provider Name and Address Organization Details Last Updated DateTime 01/17/2018 120 mm[Hg] 80 mm[Hg] Alyson Stack MD Attn: Accounting,[address] [facility], [place], [address], [facility] 01/17/2018 16:26:41 Date Recorded Body height Body mass index (BMI) Body weight Body temperature Oxygen saturation Oxygen saturation in Arterial blood by Pulse oximetry Heart rate Systolic blood pressure Diastolic blood pressure Provider Name and Address Organization Details Last Updated DateTime 9 167.64 cm 29.8 kg/m2 18269.8 7 g 98.1 [degF] 94 % 94 % 96 /min 100 mm[Hg] 70 mm[Hg] Cory Coats MA [facility] 9 13:00:51 Date Recorded Body height Body mass index (BMI) Body weight Body temperature Oxygen saturation Oxygen saturation in Arterial blood by Pulse oximetry Heart rate Systolic blood pressure Diastolic blood pressure Provider Name and Address Organization Details Last Updated DateTime 9 167.64 cm 29.4 kg/m2 25423.8 1 g 97.3 [degF] 95 % 95 % 94 /min 96 mm[Hg] 66 mm[Hg] Cory Coats MA [facility] 9 15:48:06 Date Recorded Body height Body mass index (BMI) Body weight Body temperature Oxygen saturation Oxygen saturation in Arterial blood by Pulse oximetry Heart rate Systolic blood pressure Diastolic blood pressure Provider Name and Address Organization Details Last Updated DateTime 7 167.64 cm 30.5 kg/m2 23418.9 6 g 97.7 [degF] 96 % 96 % 87 /min 108 mm[Hg] 70 mm[Hg] Cory Coats MA [facility] 7 16:47:34 Social History Question Answer Notes LastModified by Organizat ion Details LastModified Time Tobacco Smoking Status Former Smoker cigarettes Cory Coats MA null, [facility] 12/05/2014 16:05:51 What Is Your Level Of [...] virus, quadrivalent, preservative 6 completed Not Available [facility] 06/02/2019 02:40:55 Influenza, split virus, quadrivalent, preservative 8 completed Not Available [facility] 06/02/2019 02:44:14 Influenza, split virus, quadrivalent, preservative 9 completed Not Available [facility] 06/02/2019 02:38:44 Td (adult), 5 Lf tetanus toxoid, preservative free, adsorbed 5 completed Not Available [facility] 06/02/2019 02:41:30 Past Encounters Encounter ID Performer Location Encounter Start Date Encounter Closed Date Diagnosis/Indication Diagnosis SNOMED-CT Code Diagnosis ICD10 Code Diagnosis Note [id number] [facility] [address] [place] [id number] 12/05/2014 15:51:34 12/05/2014 16:58:20 Adult health examination 197797139 Cyclical v omiting syndrome 12766105 Ex-smoker 5054802 [id number] [facility] (Adult Med) [address] [place] [id number] 09/29/2015 10:19:16 09/29/2015 10:57:18 Cyclical vomiting syndrome 85679793 G43.A0 Hypertensive disorder 38 948394 I10 Chronic pain syndrome 37 0370865 G89.4 [id number] MD Gilbert Ramos (Adult Med) [address] [place] [id number] 03/29/2016 10:08:01 03/29/2016 11:55:05 Cyclical vomiting syndrome 12237366 G43.A0 Chronic pain syndrome 37 1932766 G89.4 Hypertensive disorder 38 012382 I10 Drug-induc ed constipation 58557012 K59.03 Chronic ob structive pulmonary disease 47090990 J44.9 Tobacco de pendence syndrome 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 Hypertensive disorder 38 737748 I10 Low salt diet. Acid reflux 548275277 K2 1.9 Avoid grease food, or lie down after full meal. 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 Insomnia 770136982 G47.0 0 Screening for malignant neoplasm of colon 478797223 Z12.11 Under the care of his GI specialist Dr. Giselle Combs , he will be reminded for the F/U colonoscop y ex. [facility] [address] [place] [id number] 07/18/2017 16:08:55 07/18/2017 16:33:19 Acid reflux 019785320 K21.9 Avoid grease food, or lie down after full meal. Essential hypertension 92887082 I10 Low salt diet. Benign pro static hyperplasia 918631600 N40.0 Hypertensive disorder 38 456884 I10 Low salt diet. [id number] [facility] [address] [place] [id number] 01/17/2018 15:42:23 01/19/2018 13:15:39 Administration of influenza vaccine 02490287 Z23 He tolerated flu shot well. Essential hypertension 05330019 I10 Low salt diet. Well controlled . Acid reflux 247486520 K2 1.9 Avoid grease food, or lie down after full meal. Screening for malignant neoplasm of colon 022013233 Z12.11 Under the care of his GI specialist Dr. Giselle Combs , he will be reminded for the F/U colonoscop y ex. [id number] MD Gilbert Ramos (Adult Med) [address] [place] [address] 10/03/2018 12:18:55 10/03/2018 13:11:13 Essential hypertension 14424498 I10 Low salt diet. Well controlled . Cyclical v omiting syndrome 29575007 G43.A0 [id number] MD Gilbert Ramos (Adult Med) [address] [place] [address] 03/20/2019 14:56:51 03/21/2019 10:22:15 Hypertensive disorder 26081924 I10 Low salt diet. Cyclical v omiting syndrome 09566689 G43.A0 Stable. 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 Administra tion of influenza vaccine 90479170 Z23 He tolerated flu shot well. Health Concerns Section Related Observation LastModified by Organization Detai ls LastModified Time None Recorded Concern Status LastModified by Organization Details LastModified Time None Recorded Advance Directives Directive None Recorded Payers Encounter Date Sequence Insurance Name Policy Number Policy Bennett Covered Member ID Bennett Member ID Guarantor Name 11/24/2016 1 [place] [id number] Benitez Warner [id number] Benitez Warner 07/18/2017 1 [place] [id number] Benitez Warner [id number] Benitez Warner 01/17/2018 1 [place] [id number] Benitez Warner [id number] [place] 10/03/2018 1 [place] [id number] [place] [id number] Benitez Warner 03/20/2019 1 [place] [id number] [place] [id number] [place] Notes Date Note Type Note Provider Name and Address Organization Details Recorded Time 11/24/2016 text/html Weight gained, h e also goes to pain management, has sleeping disturbance , disabling from chronic pain syndrome, NKDA, not a smoker, nor a alcohol drinker. On movantik , has had epidural shots, on oxycondein also . Alyson Stack MD Attn: Accounting,[address] [place], [address], [facility] 11/24/2016 17:19:41 07/18/2017 text/html check up and refills of medications, no other complaints. NKDA. Cory Coats MA [facility], [place] - [facility] 07/18/2017 18:07:00 01/17/2018 text/html Re-evaluate the acid reflux, and hypertension , he seems doing well for thes issues. NKDA. PSA in July 2017 is normal 0. 4, he is informed today, he has no urinary tract symptomes. He forgot the number to call for his colonoscope ex. scheduling. Alyson Stack MD Attn: Accounting,[address] [place], [address], [facility] 01/17/2018 16:31:06 10/03/2018 text/html Old left ear issue, also chronic lower back pain for decades, and left foot pain even which has been operated on many years ago. , seeing a specialist for narcotic pain medication. NKDA. Refills of medications for BP and stomach. Alyson Stack MD Attn: Accounting,[address] [place], [address], [facility] 10/03/2018 13:10:59 03/20/2019 text/html Lack of energy. wanting B12 shot , NKDA. has enough medictions refilled. Alyson Stack MD Attn: Accounting,[address] [place], [address], [facility] 03/20/2019 16:07:43
--- OUTSIDE RECORDS SUMMARY | 2024-08-22 14:23 | XMS_ITS | Clinical Summary ---
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
== END 2024-08-22 12:56 | disposition home or self-care (01) ==
PROVIDERS: PCP Family Medicine; Visit Provider Family Medicine
DX: Z13.6 Encounter for screening for cardiovascular disorders (principal); Z87.891 Personal history of nicotine dependence
CPT/HCPCS: 76706

== ENCOUNTER 2024-09-07 09:34 | Outpatient (CLI) | payer MEDICARE, SELFPAY ==
--- NOTE | ~2024-09-07 | XR_ITS ---
Left ankle Technique: AP, oblique, and lateral views were obtained. Clinical History: Pain Findings: No acute fracture or dislocation is seen. Prior ORIF of the calcaneus noted. Osseous alignm ent is anatomic. Ankle mortise and other visualized joint spaces are preserved. Soft tissues are oth erwise unremarkable. Impression: No acute abnormality. Prior calcaneal ORIF. Reviewed, dictated and finalized at location . Impression: No acute abnormality. Prior calcaneal ORIF.
--- OUTSIDE RECORDS SUMMARY | 2024-09-07 09:44 | XMS_ITS | Data Portability ---
Author Organization [facility] M[facility] Address [address] [place], [place] [address] [address] Assessment No assessment recorded. Plan of Treatment Reminders Order Date Submit Date Provider Last Modified By Organization Details Last Modified Time Details Appointments None recorded. Lab vitamin B12 + folate, serum or blood 2018 019 SYLWIA [employer], [address] [place], [place] [address] William, [address], [place], [address], 9 08:24:41 PSA, serum or plasma 2017 018 SYLWIA LABMABELRP, [address] [place], [place] [address] William, [address], [place], [address], 8 13:11:42 CMP, serum or plasma 2016 017 [facility], [address] [place], [place] [address] William, [address], [place], [address], 7 06:14:52 PSA, total + free, serum or plasma 2016 017 [facility], [address] [place], [place] [address] William, [address], [place], [address], 7 06:14:52 hemoglobin , qualitativ e, stool by immunologi c method 2016 017 SYLWIA [employer], [facility] [employer] [address], [address], [place], [address], 7 17:19:05 Referral gastroente rologist referral - please contact patient to schedule thanks 2017 018 Alessandro Bucio MD, [address], [address], [place], [address], 9 16:16:37 gastroente rologist referral - Please call patient to schedule appt. [email or web address] 2016 017 [email or web address] Eric Galdamez MD, [address] [place], [address], 7 15:21:34 Procedures None recorded. Surgeries None recorded. Imaging None recorded. Medication Orders omeprazole 40 mg capsule,de layed release 2018 019 [facility], [address] [place], [address], 9 13:21:36 losartan 100 mg-hydroch lorothiazi de 25 mg tablet 2018 019 [facility], [address] [place], [address], 9 13:21:35 omeprazole 20 mg capsule,de layed release 2017 018 [facility], [address] [place], [address], 9 12:55:00 losartan 100 mg-hydroch lorothiazi de 25 mg tablet 2017 018 [facility], [address] [place], [address], 8 16:40:14 omeprazole 40 mg capsule,de layed release 2017 018 [facility], [address] [place], [address], 8 16:32:53 losartan 100 mg-hydroch lorothiazi de 25 mg tablet 2017 018 [facility], [address] [place], [address], 8 16:32:54 finasterid e 5 mg tablet 2017 018 [facility], [address] [place], [address], 9 12:54:31 omeprazole 40 mg capsule,de layed release 2016 017 [facility], [address] [place], [address], 7 17:14:35 losartan 100 mg-hydroch lorothiazi de 25 mg tablet 2016 017 [facility], [address] [place], [address], 7 17:14:37 trazodone 50 mg tablet 2016 017 [facility], [address] [place], [address], 8 16:21:15 finasterid e 5 mg tablet 2016 017 [facility], [address] [place], [address], 9 12:54:31 Patient TargetsNo targets recorded. Patient Instructions Encounter Date Encounter Id Patient Instructions Last Modified By Organization Details Last Modified Time 11/24/2016 [id number] insomnia: care instructions [facility] Not available 11/24/2016 17:19:13 07/18/2017 [id number] learning about high blood pressure [facility] Not available 07/18/2017 16:29:24 benign prostatic hyperplasia: care instructions [facility] Not available 07/18/2017 16:29:24 01/17/2018 [id number] learning about high blood pressure [facility] Not available 01/17/2018 16:29:43 10/03/2018 [id number] learning about high blood pressure [facility] Not available 10/03/2018 13:10:54 03/20/2019 [id number] influenza (flu) vaccine: care instructions [facility] Not available 03/20/2019 15:57:12 Reason for Referral Please call patient to daniella salgado Referring Physician: Alyson Stack, Internal Medicine, Encounter Date: 11/24/2016 [employer] Referral for Screening for malignant neoplasm of colon please contact patient to schedule thanks Referring Physician: Alyson Stack, Internal Medicine, Encounter Date: 01/17/2018 Results Created Date Observation Date Name Description Value Unit Range Abnormal Flag Note LastModifiedBy Organization Detail LastModifiedTime 12/10/19 17 12/10/2016 CMP, serum or plasm a glucose, serum 103 mg/dL 65-99 above high normal Not Available [facility] ([facility]) [address] [place], [address], 12/10/2016 06:14:52 12/10/19 17 12/10/2016 CMP, serum or plasm a BUN 14 mg/dL 6-24 Not Available [facility] ([facility]) [address] [place], [address], 12/10/2016 06:14:52 12/10/19 17 12/10/2016 CMP, serum or plasm a creatinine, serum 0.95 mg/dL 0.76-1 .27 Not Available [facility] ([facility]) [address] [place], [address], 12/10/2016 06:14:52 12/10/19 17 12/10/2016 CMP, serum or plasm a eGFR if nonafricn AM 87 mL/mi n/1.7 3 >59 Not Available [facility] ([facility]) [address] [place], [address], 12/10/2016 06:14:52 12/10/19 17 12/10/2016 CMP, serum or plasm a eGFR if africn AM 101 mL/mi n/1.7 3 >59 Not Available [facility] ([facility]) [address] [facility], [place], [address], 12/10/2016 06:14:52 12/10/19 17 12/10/2016 CMP, serum or plasm a BUN/creatini ne ratio 15 9-20 Not Available [facility] ([facility]) [address] [facility] [place], [address], 12/10/2016 06:14:52 12/10/19 17 12/10/2016 CMP, serum or plasm a sodium, serum 140 mmol/ L 134-14 4 Not Available [facility] ([facility]) [address] [facility], [place], [address], 12/10/2016 06:14:52 12/10/19 17 12/10/2016 CMP, serum or plasm a potassium, serum 5.0 mmol/ L 3.5-5. 2 Not Available [facility] ([facility]) [address] [facility], [place], [address], 12/10/2016 06:14:52 12/10/19 17 12/10/2016 CMP, serum or plasm a chloride, serum 97 mmol/ L 96-106 Not Available [facility] ([facility]) [address] [facility], [place], [address], 12/10/2016 06:14:52 12/10/1912/10/2016 CMP, serum or plasm a carbon dioxide, total 27 mmol/ L 18-29 Not Available [facility] ([facility]) [address] [facility] [place], [address], 12/10/2016 06:14:52 12/10/1912/10/2016 CMP, serum or plasm a calcium, serum 9.5 mg/dL 8.7-10 .2 Not Available [facility] ([facility]) [address] [place], [address], 12/10/2016 06:14:52 12/10/1912/1012/10/2016 CMP, serum or plasm a protein, total, serum 7.1 g/dL 6.0-8. 5 Not Available [facility] ([facility]) [address] [facility] [place], [address], 12/10/2016 06:14:52 12/10/19 17 12/10/2016 CMP, serum or plasm a albumin, serum 4.6 g/dL 3.5-5. 5 Not Available [facility] ([facility]) [address] [facility] [place], [address], 12/10/2016 06:14:52 12/10/1912/10/2016 CMP, serum or plasm a globulin, total 2.5 g/dL 1.5-4. 5 Not Available [facility] ([facility]) [address] [facility] [place], [address], 12/10/2016 06:14:52 12/10/1912/10/2016 CMP, serum or plasm a A/G ratio 1.8 1.2-2. 2 Not Available [facility] ([facility]) [address] [facility] [place], [address], 12/10/2016 06:14:52 12/10/1912/10/2016 CMP, serum or plasm a bilirubin, total 0.3 mg/dL 0.0-1. 2 Not Available [facility] ([facility]) [address] [facility] [place], [address], 12/10/2016 06:14:52 12/10/1912/10/2016 CMP, serum or plasm a alkaline phosphatase, S 62 IU/L 39-117 Not Available [facility] ([facility]) [address] [facility] [place], [address], 12/10/2016 06:14:52 12/10/1912/10/2016 CMP, serum or plasm a AST (SGOT) 20 IU/L 0-40 Not Available [facility] ([facility]) [address] [facility], [place], [address], 12/10/2016 06:14:52 12/10/1912/10/2016 CMP, serum or plasm a ALT (SGPT) 30 IU/L 0-44 Not Available [facility] ([facility]) [address] [facility], [place], [address], 12/10/2016 06:14:52 12/10/1912/10/2016 PSA, total + free, [...] CANNO T BE INTER PRETE D ABSOL AUGUSTINE EVIDE NCE OF THE PRESE NCE OR ABSEN CE OF V[place]NY [place] SE. Not Available [facility] ([facility]) [address] [facility], [place], [address], 12/10/2016 06:14:52 12/10/1912/10/2016 PSA, total + free, serum or plasm a PSA, free 0.25 NG/mL n/a ANTHONY ECLIA METHO DOLOG Y. Not Available [facility] ([facility]) [address] [facility], [place], [address], 12/10/2016 06:14:52 12/10/1912/10/2016 PSA, total + free, serum or plasm a % free PSA 25.0 % THE TABLE BELOW LISTS THE PROBA BILIT Y OF PROST ATE CANCE R FOR MEN WITH NON-S USPIC IOUS LYSSA RESUL TS AND TOTAL PSA BETWE EN 4 AND 10 NG/ML , BY PATIE NT AGE (RYDER ROMIAN ET AL, JEANNE 1998, 279:1 542). % [...] POPUL ATION OF MEN. Not Available [facility] ([facility]) [address] [facility], [place], [address], 12/10/2016 06:14:52 07/19/19 18 07/19/2017 PSA, serum [...] t be inter prete d as absol kasaan evide nce of the prese nce or absen ce of [place] se. Not Available [facility] ([facility]) [address] [facility], [place], [address], 07/19/2017 13:11:42 03/20/20 19 03/21/2019 vitam in B12 + folat e, serum or blood vitamin B12 1068 pg/mL 232-12 45 Not Available [facility] ([facility]) [address] [facility], [place], [address], 03/21/2019 08:24:41 03/20/20 19 03/21/2019 vitam in B12 + folat e, serum or blood folate (folic acid), serum >20.0 NG/mL >3.0 A serum folat e elsi ntrat ion of less than 3.1 ng/mL is consi dered to repre sent clini seth defic iency . Not Available [facility] ([facility]) [address] [facility], [place], [address], 03/21/2019 08:24:41 02/07/20 20 02/07/2020 LDCT, chest , for lung josece r lyric mitchell No observ ation record ed. [facility] (Imaging) [address] [place], [address], 02/08/2020 14:26:28 Result Notes None recorded. Problems Name Problem SNOMED Code Status Onset Date Resolution Date Notes Provider Name and Address Organization Details Recorded Time Cyclical vomiting syndrome 98824662 Active Alyson Stack MD Attn: Adan gupta,[address] [place], [address], [place] - [facility] 6 10:54:26 Shoulder pain 17814547 Active Temitope Hancock LPN null, [place] - [facility] 5 09:07:46 Hypertensive disorder 12467169 Active Alyson Stack MD Attn: Adan gupta,[address] [place], [address], [place] [facility] 6 10:54:26 Chronic pain syndrome 697801109 Active Alyson Stack MD Attn: Adan gupta,[address] [place], [address], [place] [facility] 6 10:54:26 Problem Notes None recorded. Procedures Surgical History Date Name Laterality Status Provider Name and Address Organization Details Recorded Time 4 Diagnostic colonoscopy completed Cory Coats [place] - [facility] 12/05/2014 16:05:51 Knee Surgery completed Cory Coats MA [place] - [facility] 12/05/2014 16:05:51 Imaging Results Imaging Date Name Status LastModified by Organiz ation Details LastModified Time 02/07/2020 LDCT, chest, for lung cancer screening completed [facility] (Im[facility]) [address] [facility], [place], [address], 02/08/2020 14:26:28 Procedure Notes None recorded. Medical [...] Updated DateTime 8 167.64 cm 31 kg/m2 65425.0 2 g 98.1 [degF] 97 % 97 % 87 /min 126 mm[Hg] 70 mm[Hg] Cory Coats [place] [facility] 8 16:23:57 Date Recorded Body height Body mass index (BMI) Body weight Heart rate Body temperature Oxygen saturation Oxygen saturation in Arterial blood by Pulse oximetry Provider Name and Address Organization Details Last Updated DateTime 8 167.64 cm 30.3 kg/m2 28650.9 7 g 88 /min 98.1 [degF] 96 % 96 % Juany Pacheco MA [place] - [facility] 8 16:05:51 Date Recorded Systolic blood pressure Diastolic blood pressure Provider Name and Address Organization Details Last Updated DateTime 01/17/2018 120 mm[Hg] 80 mm[Hg] Alyson Stack MD Attn: Accounting,[address] [facility], [place], [address], [facility] 01/17/2018 16:26:41 Date Recorded Body height Body mass index (BMI) Body weight Body temperature Oxygen saturation Oxygen saturation in Arterial blood by Pulse oximetry Heart rate Systolic blood pressure Diastolic blood pressure Provider Name and Address Organization Details Last Updated DateTime 9 167.64 cm 29.8 kg/m2 63200.8 7 g 98.1 [degF] 94 % 94 % 96 /min 100 mm[Hg] 70 mm[Hg] Cory Coats MA [facility] 9 13:00:51 Date Recorded Body height Body mass index (BMI) Body weight Body temperature Oxygen saturation Oxygen saturation in Arterial blood by Pulse oximetry Heart rate Systolic blood pressure Diastolic blood pressure Provider Name and Address Organization Details Last Updated DateTime 9 167.64 cm 29.4 kg/m2 12950.8 1 g 97.3 [degF] 95 % 95 % 94 /min 96 mm[Hg] 66 mm[Hg] Cory Coats MA [facility] 9 15:48:06 Date Recorded Body height Body mass index (BMI) Body weight Body temperature Oxygen saturation Oxygen saturation in Arterial blood by Pulse oximetry Heart rate Systolic blood pressure Diastolic blood pressure Provider Name and Address Organization Details Last Updated DateTime 7 167.64 cm 30.5 kg/m2 66051.9 6 g 97.7 [degF] 96 % 96 % 87 /min 108 mm[Hg] 70 mm[Hg] Cory Coats MA [facility] 7 16:47:34 Social History Question Answer Notes LastModified by Organizat ion Details LastModified Time Tobacco Smoking Status Former Smoker cigarettes Cory Coats MA null, [facility] 12/05/2014 16:05:51 What Is Your Level Of [...] quadrivalent, preservative 6 completed Not Available [facility] 06/02/2019 02:40:55 Influenza, split virus, quadrivalent, preservative 8 completed Not Available [facility] 06/02/2019 02:44:14 Influenza, split virus, quadrivalent, preservative 9 completed Not Available [facility] 06/02/2019 02:38:44 Td (adult), 5 Lf tetanus toxoid, preservative free, adsorbed 5 completed Not Available [facility] 06/02/2019 02:41:30 Past Encounters Encounter ID Performer Location Encounter Start Date Encounter Closed Date Diagnosis/Indication Diagnosis SNOMED-CT Code Diagnosis ICD10 Code Diagnosis Note [id number] [facility] [address] [place] [address] 12/05/2014 15:51:34 12/05/2014 16:58:20 Adult health examination 062925033 Cyclical v omiting syndrome 20828263 Ex-smoker 2643537 [id number] [facility] (Adult Med) [address] [place] [address] 09/29/2015 10:19:16 09/29/2015 10:57:18 Cyclical vomiting syndrome 66127951 G43.A0 Hypertensive disorder 38 515875 I10 Chronic pain syndrome 37 4983697 G89.4 [id number] MD Gilbert Ramos (Adult Med) [address] [place] [address] 03/29/2016 10:08:01 03/29/2016 11:55:05 Cyclical vomiting syndrome 42785375 G43.A0 Chronic pain syndrome 37 1567276 G89.4 Hypertensive disorder 38 414091 I10 Drug-induc ed constipation 95415315 K59.03 Chronic ob structive pulmonary disease 12521531 J44.9 Tobacco de pendence syndrome 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 Hypertensive disorder 38 165650 I10 Low salt diet. Acid reflux 712107008 K2 1.9 Avoid grease food, or lie down after full meal. 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 Insomnia 948324708 G47.0 0 Screening for malignant neoplasm of colon 517458304 Z12.11 Under the care of his GI specialist Dr. Giselle Combs , he will be reminded for the F/U colonoscop y ex. [facility] [address] [place] [id number] 07/18/2017 16:08:55 07/18/2017 16:33:19 Acid reflux 749322903 K21.9 Avoid grease food, or lie down after full meal. Essential hypertension 48256415 I10 Low salt diet. Benign pro static hyperplasia 383164186 N40.0 Hypertensive disorder 38 442176 I10 Low salt diet. [id number] [facility] [address] [place] [phone] 01/17/2018 15:42:23 01/19/2018 13:15:39 Administration of influenza vaccine 32236384 Z23 He tolerated flu shot well. Essential hypertension 01999120 I10 Low salt diet. Well controlled . Acid reflux 734216035 K2 1.9 Avoid grease food, or lie down after full meal. Screening for malignant neoplasm of colon 593772931 Z12.11 Under the care of his GI specialist Dr. Giselle Combs , he will be reminded for the F/U colonoscop y ex. [id number] MD Gilbert Ramos (Adult Med) [address] [place] [address] 10/03/2018 12:18:55 10/03/2018 13:11:13 Essential hypertension 68719521 I10 Low salt diet. Well controlled . Cyclical v omiting syndrome 81608576 G43.A0 [id number] MD Gilbert Ramos (Adult Med) [address] [place] [address] 03/20/2019 14:56:51 03/21/2019 10:22:15 Hypertensive disorder 04233539 I10 Low salt diet. Cyclical v omiting syndrome 56140663 G43.A0 Stable. 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 Administra tion of influenza vaccine 17762719 Z23 He tolerated flu shot well. Health Concerns Section Related Observation LastModified by Organization Detai ls LastModified Time None Recorded Concern Status LastModified by Organization Details LastModified Time None Recorded Advance Directives Directive None Recorded Payers Encounter Date Sequence Insurance Name Policy Number Policy Bennett Covered Member ID Bennett Member ID Guarantor Name 11/24/2016 1 [place] [id number] Benitez Warner [id number] Benitez Warner 07/18/2017 1 [place] [id number] Benitez Warner [id number] Benitez [place] 01/17/2018 1 [place] [id number] Benitez Warner [id number] Benitez Warner 10/03/2018 1 [place] [id number] Benitez Warner [id number] Benitez Warner 03/20/2019 1 [place] [id number] Benitez Warner [id number] Benitez [place] Notes Date Note Type Note Provider Name and Address Organization Details Recorded Time 11/24/2016 text/html Weight gained, h e also goes to pain management, has sleeping disturbance , disabling from chronic pain syndrome, NKDA, not a smoker, nor a alcohol drinker. On movantik , has had epidural shots, on oxycondein also . Alyson Stack MD Attn: Accounting,[address] [place], [address], [facility] 11/24/2016 17:19:41 07/18/2017 text/html check up and refills of medications, no other complaints. NKDA. Cory Coats MA [facility], [place] - [place] 07/18/2017 18:07:00 01/17/2018 text/html Re-evaluate the acid reflux, and hypertension , he seems doing well for thes issues. NKDA. PSA in July 2017 is normal 0. 4, he is informed today, he has no urinary tract symptomes. He forgot the number to call for his colonoscope ex. scheduling. Alyson Stack MD Attn: Accounting,[address] [place], [address], [facility] 01/17/2018 16:31:06 10/03/2018 text/html Old left ear issue, also chronic lower back pain for decades, and left foot pain even which has been operated on many years ago. , seeing a specialist for narcotic pain medication. NKDA. Refills of medications for BP and stomach. Alyson Stack MD Attn: Accounting,[address] [place], [address], [facility] 10/03/2018 13:10:59 03/20/2019 text/html Lack of energy. wanting B12 shot , NKDA. has enough medictions refilled. Alyson Stack MD Attn: Accounting,[address] [place], [address], [facility] 03/20/2019 16:07:43
--- OUTSIDE RECORDS SUMMARY | 2024-09-07 09:45 | XMS_ITS | CONTINUITY OF CARE DOCUMENT ---
Author Name maxx lilly Address Unknown Organization [facility] Address [address] [facility] [address] [place] [address] Phone [phone] Care Team Providers Care Engineering Assistant Name Role Phone maxx lilly Unavailable Unavailable INSURANCE PROVIDERS Payer name Policy type / Coverage type Eduardo red green party ID [facility] [id number]
--- OUTSIDE RECORDS SUMMARY | 2024-09-07 09:45 | XMS_ITS | Referral Summary ---
Author Organization 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
--- OUTSIDE RECORDS SUMMARY | 2024-09-07 09:45 | XMS_ITS | Clinical Summary ---
Author Organization 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
== END 2024-09-07 09:35 | disposition home or self-care (01) ==
PROVIDERS: PCP Family Medicine; Visit Provider Pain Medicine Interventional Pain Medicine
DX: M25.572 Pain in left ankle and joints of left foot (principal); M25.571 Pain in right ankle and joints of right foot; Z96.662 Presence of left artificial ankle joint
CPT/HCPCS: 73610

== ENCOUNTER 2024-09-21 06:35 | Outpatient (CLI) | payer MEDICARE, SELFPAY ==
--- NOTE | ~2024-09-21 | CT_ITS ---
CT of the Abdomen and Pelvis: Indication: Hematuria Technique: 2.5 mm axial scans were obtained through the abdomen and pelvis prior to and following in travenous administration of 130 cc of Omnipaque 350. Dose reduction technique was used on this scan b y utilizing automated exposure control and iterative reconstruction technique. The dose-length produc t (DLP) was 1034.85 mGy-cm. Findings: Scans through the lung bases are unremarkable. The liver, spleen, pancreas, gallbladder, adrenals and kidneys are within normal limits. No evidence of aortic aneurysm. No lymphadenopathy. No bowel obstruction or bowel wall thickening. There is no evidence to suggest acute appendicitis. Images through the pelvis were performed. There is a soft tissue mass in the posterior right side of the urinary bladder measuring approximately 2.8 cm in diameter, highly suspicious for bladder carcino ma. Prostate gland is mildly enlarged. No ascites. Impression: 2.8 cm mass at the posterior, right side of the urinary bladder, suspicious for bladder carcinoma unt il proven otherwise. Cystoscopy recommended for further evaluation. No evidence for metastatic disease. Reviewed, dictated and finalized at location M. Impression: 2.8 cm mass at the posterior, right side of the urinary bladder, suspicious for bladder carcinoma until proven otherwise. Cystoscopy recommended for further e valuation. No evidence for metastatic disease.
--- NOTE | ~2024-09-21 | XR_ITS ---
XR abdomen/kub 1V 09/21/2024 06:54 INDICATION: Gross hematuria TECHNIQUE: KUB COMPARISON: None FINDINGS: Bowel gas pattern is normal. Large amount of retained fecal material in the colon. There is no evidence of free air, mass, organomegaly, ascites or obstruction. No abnormal calculi are seen. The bones appear intact. Lung bases unremarkable. IMPRESSION: 1: No acute abdominal abnormality identified. Reviewed, dictated and finalized at location A.
--- OUTSIDE RECORDS SUMMARY | 2024-09-21 06:39 | XMS_ITS | Clinical Summary ---
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
--- OUTSIDE RECORDS SUMMARY | 2024-09-21 06:39 | XMS_ITS | CONTINUITY OF CARE DOCUMENT ---
Author Name maxx lilly Address Unknown Organization [facility] Address [address] [facility] [address] [place] [address] Phone [phone] Care Team Providers Care Communications Tower Technician Name Role Phone maxx lilly Unavailable Unavailable INSURANCE PROVIDERS Payer name Policy type / Coverage type Eduardo red alliance party ID [facility] [id number]
--- OUTSIDE RECORDS SUMMARY | 2024-09-21 06:39 | XMS_ITS | Continuity of Care Document ---
Author Organization [facility] [employer] Address [address] [place] [address] [place] [address] Phone Care Team Providers Care Infrastructure Tech Name Role Phone No Information Unavailable Unavailable [...] Diagnoses Date Provider Providers Copied on Encounter [facility], [address], [id number], tel:[phone] No Information 0 1-201 3 No Information [facility], [address], [id number], tel:[phone] [facility] Oct-0 8-201 3 Steffany Coronado. [address] [place] [address], [address], . tel:[phone] [facility], [address], [id number], tel:[phone] [facility] Oct-0 1-201 3 Bayerluisa Coronado. [address] [place] [address], [address], . tel:[phone] [facility], [address], [id number], tel:[phone] [facility] Sep-2 6-201 3 Bayerluisa Coronado. [facility] [place], [address], [place]. tel:[phone] [facility], [address], [id number], tel:[phone] [facility] Sep-2 4-201 3 Bayerluisa Coronado. [address] [place] [address], [address], [place]. tel:[phone] [facility], [address], [id number], [place] tel:[phone] [facility] SciaticaLumbago Sep-2 0-201 3 [place]. [facility] [place], [address], [place]. tel:[phone] [facility], [address], [place], [place], [id number], [place] tel:[phone] [facility] SciaticaLumbago Sep-1 8-201 3 [place]. [address] [place], [address], [place]. tel:[phone] [facility], [address], [place], [place], [id number], [place] tel:[phone] [facility] SciaticaLumbago Zeke-1 9-201 3 [place]. [address] [place], [address], [place]. tel:[phone], [address], [place], [place], [id number], [place] tel:[phone] [facility] SciaticaLumbago Zeke-1 6-201 3 [place]. [facility] [place], [address], [place]. tel:[phone] [facility], [address] [facility], [place], [place], [id number], [place] tel:[phone] [facility] LumbagoSciatica Nov-1 2-201 3 [place]. [facility] [place], [address], [place]. tel:[phone] [facility], [address], [place], [place], [id number], [place] tel:[phone] [facility] SciaticaLumbago Zeke-0 9-201 3 [place]. [facility] [place], [address], [place]. tel:[phone] [facility], [address], [place], [place], [id number], [place] tel:[phone] [facility] SciaticaLumbago Zeke-0 2-201 3 [place]. [address] [place], [address], . tel:[phone] [facility], [address], [id number], tel:[phone] [facility] 3 [place]. [facility] [place], [address], . tel:[phone] [facility], [address], [id number], tel:[phone] [facility] 3 [place], [address], . tel:[phone] [facility], [address], [id number], tel:[phone] [facility] [address] [place], [address], . tel:[phone] [facility], [address], [id number], tel:[phone] [facility] [address] [place], [address], . tel:[phone], [address], [id number], tel:[phone] [facility] [address] [place], [address], . tel:[phone] Family History Family Member Type Diagnosis Age At Onset No Information Payers Payer name Insurance type Covered republican ID Eder montano(s) [employer] [id number] [facility] [employer] LI X Social History Type Description [...]
--- OUTSIDE RECORDS SUMMARY | 2024-09-21 06:39 | XMS_ITS | Data Portability ---
Author Organization [facility] MUMTAZNani [facility] Address [address] [place], [place] [address] [address] Assessment No assessment recorded. Plan of Treatment Reminders Order Date Submit Date Provider Last Modified By Organization Details Last Modified Time Details Appointments None recorded. Lab vitamin B12 + folate, serum or blood 2018 019 SYLWIA [employer], [address] [place], [place] [address] [address], [address], [place], [address], 9 08:24:41 PSA, serum or plasma 2017 018 SYLWIA LABM[facility]ELRP, [address] [place], [place] [address] [address], [address], [place], [address], 8 13:11:42 CMP, serum or plasma 2016 017 SYLWIA [facility], [address] [place], [place] [address] [address], [address], [place], [address], 7 06:14:52 PSA, total + free, serum or plasma 2016 017 [facility], [address] [place], [place] [address] [address], [address], [place], [address], 7 06:14:52 hemoglobin , qualitativ e, stool by immunologi c method 2016 017 SYLWIA [employer], [facility] [employer] [address], [address], [place], [address], 7 17:19:05 Referral gastroente rologist referral - please contact patient to schedule thanks 2017 018 Alessandro Bucio MD, [address], [address], [place], [address], 9 16:16:37 gastroente rologist referral - Please call patient to schedule appt. [email or web address] 2016 017 [email or web address] Eric Galdamez MD, [address] [place], [address], 7 15:21:34 Procedures None recorded. Surgeries None recorded. Imaging None recorded. Medication Orders omeprazole 40 mg capsule,de layed release 2018 019 [facility], [address] [place], [address], 9 13:21:36 losartan 100 mg-hydroch lorothiazi de 25 mg tablet 2018 019 [facility], [address] [place], [address], 9 13:21:35 omeprazole 20 mg capsule,de layed release 2017 018 [facility], [address] [place], [address], 9 12:55:00 losartan 100 mg-hydroch lorothiazi de 25 mg tablet 2017 018 [facility] [address], [address] [place], [address], 8 16:40:14 omeprazole 40 mg capsule,de layed release 2017 018 [facility] [address], [address] [place], [address], 8 16:32:53 losartan 100 mg-hydroch lorothiazi de 25 mg tablet 2017 018 [facility] [address], [address] [place], [address], 8 16:32:54 finasterid e 5 mg tablet 2017 018 [facility] [address], [address] [place], [address], 9 12:54:31 omeprazole 40 mg capsule,de layed release 2016 017 [facility] [address], [address] [place], [address], 7 17:14:35 losartan 100 mg-hydroch lorothiazi de 25 mg tablet 2016 017 [facility] [address], [address] [place], [address], 7 17:14:37 trazodone 50 mg tablet 2016 017 [facility] [address], [address] [place], [address], 8 16:21:15 finasterid e 5 mg tablet 2016 017 [facility], [address] [place], [address], 9 12:54:31 Patient TargetsNo targets recorded. Patient Instructions Encounter Date Encounter Id Patient Instructions Last Modified By Organization Details Last Modified Time 11/24/2016 [id number] insomnia: care instructions [facility] Not available 11/24/2016 17:19:13 07/18/2017 [id number] learning about high blood pressure [facility] Not available 07/18/2017 16:29:24 benign prostatic hyperplasia: care instructions [facility] Not available 07/18/2017 16:29:24 01/17/2018 [id number] learning about high blood pressure [facility] Not available 01/17/2018 16:29:43 10/03/2018 [id number] learning about high blood pressure [facility] Not available 10/03/2018 13:10:54 03/20/2019 [id number] influenza (flu) vaccine: care instructions [facility] Not available 03/20/2019 15:57:12 Reason for Referral Please call patient to daniella salgado Referring Physician: Alyson Stack, Internal Medicine, Encounter Date: 11/24/2016 [employer] Supervisor Referral for Screening for malignant neoplasm of colon please contact patient to schedule thanks Referring Physician: Alyson Stack, Internal Medicine, Encounter Date: 01/17/2018 Results Created Date Observation Date Name Description Value Unit Range Abnormal Flag Note LastModifiedBy Organization Detail LastModifiedTime 12/10/19 17 12/10/2016 CMP, serum or plasm a glucose, serum 103 mg/dL 65-99 above high normal Not Available [facility] ([facility]) [address] [place], [address], 12/10/2016 06:14:52 12/10/19 17 12/10/2016 CMP, serum or plasm a BUN 14 mg/dL 6-24 Not Available [facility] ([facility]) [address] [place], [address], 12/10/2016 06:14:52 12/10/19 17 12/10/2016 CMP, serum or plasm a creatinine, serum 0.95 mg/dL 0.76-1 .27 Not Available [facility] ([facility]) [address] [place], [address], 12/10/2016 06:14:52 12/10/19 17 12/10/2016 CMP, serum or plasm a eGFR if nonafricn AM 87 mL/mi n/1.7 3 >59 Not Available [facility] ([facility]) [address] [place], [address], 12/10/2016 06:14:52 12/10/19 17 12/10/2016 CMP, serum or plasm a eGFR if africn AM 101 mL/mi n/1.7 3 >59 Not Available [facility] ([facility]) [address], [place], [address], 12/10/2016 06:14:52 12/10/19 17 12/10/2016 CMP, serum or plasm a BUN/creatini ne ratio 15 9-20 Not Available [facility] ([facility]) [address] [place], [address], 12/10/2016 06:14:52 12/10/19 17 12/10/2016 CMP, serum or plasm a sodium, serum 140 mmol/ L 134-14 4 Not Available [facility] ([facility]) [address], [place], [address], 12/10/2016 06:14:52 12/10/19 17 12/10/2016 CMP, serum or plasm a potassium, serum 5.0 mmol/ L 3.5-5. 2 Not Available [facility] ([facility]) [address], [place], [address], 12/10/2016 06:14:52 12/10/19 17 12/10/2016 CMP, serum or plasm a chloride, serum 97 mmol/ L 96-106 Not Available [facility] ([facility]) [address], [place], [address], 12/10/2016 06:14:52 12/10/1912/10/2016 CMP, serum or plasm a carbon dioxide, total 27 mmol/ L 18-29 Not Available [facility] ([facility]) [address] [place], [address], 12/10/2016 06:14:52 12/10/1912/10/2016 CMP, serum or plasm a calcium, serum 9.5 mg/dL 8.7-10 .2 Not Available [facility] ([facility]) [address] [place], [address], 12/10/2016 06:14:52 12/10/1912/1012/10/2016 CMP, serum or plasm a protein, total, serum 7.1 g/dL 6.0-8. 5 Not Available [facility] ([facility]) [address] [place], [address], 12/10/2016 06:14:52 12/10/19 17 12/10/2016 CMP, serum or plasm a albumin, serum 4.6 g/dL 3.5-5. 5 Not Available [facility] ([facility]) [address] [place], [address], 12/10/2016 06:14:52 12/10/1912/10/2016 CMP, serum or plasm a globulin, total 2.5 g/dL 1.5-4. 5 Not Available [facility] ([facility]) [address] [place], [address], 12/10/2016 06:14:52 12/10/1912/10/2016 CMP, serum or plasm a A/G ratio 1.8 1.2-2. 2 Not Available [facility] ([facility]) [address] [place], [address], 12/10/2016 06:14:52 12/10/1912/10/2016 CMP, serum or plasm a bilirubin, total 0.3 mg/dL 0.0-1. 2 Not Available [facility] ([facility]) [address] [place], [address], 12/10/2016 06:14:52 12/10/1912/10/2016 CMP, serum or plasm a alkaline phosphatase, S 62 IU/L 39-117 Not Available [facility] ([facility]) [address] [place], [address], 12/10/2016 06:14:52 12/10/1912/10/2016 CMP, serum or plasm a AST (SGOT) 20 IU/L 0-40 Not Available [facility] ([facility]) [address], [place], [address], 12/10/2016 06:14:52 12/10/1912/10/2016 CMP, serum or plasm a ALT (SGPT) 30 IU/L 0-44 Not Available [facility] ([facility]) [address], [place], [address], 12/10/2016 06:14:52 12/10/1912/10/2016 PSA, total + free, [...] OF [address] [place] [address]. Not Available [facility] ([facility]) [address], [place], [address], 12/10/2016 06:14:52 12/10/1912/10/2016 PSA, total + free, serum or plasm a PSA, free 0.25 NG/mL n/a ANTHONY ECLIA METHO DOLOG Y. Not Available [facility] ([facility]) [address], [place], [address], 12/10/2016 06:14:52 12/10/1912/10/2016 PSA, total + free, [...] POPUL ATION OF MEN. Not Available [facility] ([facility]) [address], [place], [address], 12/10/2016 06:14:52 07/19/19 18 07/19/2017 PSA, serum [...] t be inter prete d as absol [place] evide nce of the prese nce or absen ce of [place] se. Not Available [facility] ([facility]) [address], [place], [address], 07/19/2017 13:11:42 03/20/20 19 03/21/2019 vitam in B12 + folat e, serum or blood vitamin B12 1068 pg/mL 232-12 45 Not Available [facility] ([facility]) [address], [place], [address], 03/21/2019 08:24:41 03/20/20 19 03/21/2019 vitam in B12 + folat e, serum or blood folate (folic acid), serum >20.0 NG/mL >3.0 A serum folat e elsi ntrat ion of less than 3.1 ng/mL is consi dered to repre sent clini seth defic iency . Not Available [facility] ([facility]) [address], [place], [address], 03/21/2019 08:24:41 02/07/20 20 02/07/2020 LDCT, chest , for lung josece r lyric mitchell No observ ation record ed. [facility] (Imaging) [address] [place], [address], 02/08/2020 14:26:28 Result Notes None recorded. Problems Name Problem SNOMED Code Status Onset Date Resolution Date Notes Provider Name and Address Organization Details Recorded Time Cyclical vomiting syndrome 38643010 Active Alyson Stack MD Attn: Adan gupta,[address] [facility] [address], [place], [address], [place] [facility] 6 10:54:26 Pain of shoulder region 63329966 Active Temitope Hancock LPN null, [place] - [facility] 5 09:07:46 Hypertensive disorder 98751269 Active Alyson Stack MD Attn: Adan gupta,[address] [facility], [place], [address], [place] [facility] 6 10:54:26 Chronic pain syndrome 729229163 Active Alyson Stack MD Attn: Adan gupta,[address] [facility], [place], [address], [place] [facility] 6 10:54:26 Problem Notes None recorded. Procedures Surgical History Date Name Laterality Status Provider Name and Address Organization Details Recorded Time 4 Diagnostic colonoscopy completed Cory Coats [place] - [facility] 12/05/2014 16:05:51 Knee Surgery completed Cory Coats MA [place] - [facility] 12/05/2014 16:05:51 Imaging Results Imaging Date Name Status LastModified by Organiz ation Details LastModified Time 02/07/2020 LDCT, chest, for lung cancer screening completed [facility] (Imaging) [address], [place], [address], 02/08/2020 14:26:28 Procedure Notes None recorded. Medical [...] Updated DateTime 8 167.64 cm 31 kg/m2 28683.0 2 g 98.1 [degF] 97 % 97 % 87 /min 126 mm[Hg] 70 mm[Hg] Cory Coats MA [facility] SI 8 16:23:57 Date Recorded Body height Body mass index (BMI) Body weight Heart rate Body temperature Oxygen saturation Oxygen saturation in Arterial blood by Pulse oximetry Provider Name and Address Organization Details Last Updated DateTime 8 167.64 cm 30.3 kg/m2 14232.9 7 g 88 /min 98.1 [degF] 96 % 96 % Juany Pacheco [facility] SI 8 16:05:51 Date Recorded Systolic blood pressure Diastolic blood pressure Provider Name and Address Organization Details Last Updated DateTime 01/17/2018 120 mm[Hg] 80 mm[Hg] Alyson Stack MD Attn: Accounting,[address] [facility], [place], [address], [facility] 01/17/2018 16:26:41 Date Recorded Body height Body mass index (BMI) Body weight Body temperature Oxygen saturation Oxygen saturation in Arterial blood by Pulse oximetry Heart rate Systolic blood pressure Diastolic blood pressure Provider Name and Address Organization Details Last Updated DateTime 9 167.64 cm 29.8 kg/m2 74991.8 7 g 98.1 [degF] 94 % 94 % 96 /min 100 mm[Hg] 70 mm[Hg] Cory Coats MA [facility] 9 13:00:51 Date Recorded Body height Body mass index (BMI) Body weight Body temperature Oxygen saturation Oxygen saturation in Arterial blood by Pulse oximetry Heart rate Systolic blood pressure Diastolic blood pressure Provider Name and Address Organization Details Last Updated DateTime 9 167.64 cm 29.4 kg/m2 16684.8 1 g 97.3 [degF] 95 % 95 % 94 /min 96 mm[Hg] 66 mm[Hg] Cory Coats MA [facility] 9 15:48:06 Date Recorded Body height Body mass index (BMI) Body weight Body temperature Oxygen saturation Oxygen saturation in Arterial blood by Pulse oximetry Heart rate Systolic blood pressure Diastolic blood pressure Provider Name and Address Organization Details Last Updated DateTime 7 167.64 cm 30.5 kg/m2 82658.9 6 g 97.7 [degF] 96 % 96 % 87 /min 108 mm[Hg] 70 mm[Hg] Cory Coats MA [facility] 7 16:47:34 Social History Question Answer Notes LastModified by Organizat ion Details LastModified Time Tobacco Smoking Status Former Smoker cigarettes Cory Coats MA null, [facility] 12/05/2014 16:05:51 What Is Your Level [...] virus, quadrivalent, preservative 6 completed Not Available Count includes the [facility] 06/02/2019 02:40:55 Influenza, split virus, quadrivalent, preservative 8 completed Not Available Count includes the [facility] 06/02/2019 02:44:14 Influenza, split virus, quadrivalent, preservative 9 completed Not Available Count includes the [facility] 06/02/2019 02:38:44 Td (adult), 5 Lf tetanus toxoid, preservative free, adsorbed 5 completed Not Available Count includes the [facility] 06/02/2019 02:41:30 Past Encounters Encounter ID Performer Location Encounter Start Date Encounter Closed Date Diagnosis/Indication Diagnosis SNOMED-CT Code Diagnosis ICD10 Code Diagnosis Note [id number] Alyson Stack MD [facility] (Adult Med) [address] [place] [address] 12/05/2014 15:51:34 12/05/2014 16:58:20 Adult health examination 901345827 Cyclical v omiting syndrome 41019149 Ex-smoker 1859956 [id number] Alyson Stack MD [facility] (Adult Med) [address] [place] [id number] 09/29/2015 10:19:16 09/29/2015 10:57:18 Cyclical vomiting syndrome 97680944 G43.A0 Hypertensive disorder 38 655134 I10 Chronic pain syndrome 37 2589932 G89.4 [id number] Alyson Stack MD [facility] (Adult Med) [address] [place] [id number] 03/29/2016 10:08:01 03/29/2016 11:55:05 Cyclical vomiting syndrome 56495126 G43.A0 Chronic pain syndrome 37 5971596 G89.4 Hypertensive disorder 38 599767 I10 Drug-induc ed constipation 02988560 K59.03 Chronic ob structive pulmonary disease 38471854 J44.9 Tobacco de pendence syndrome 19919181 F17.290 Needs infl uenza immunization 726278241 Z23 [id number] [facility] [address] [place] [id number] 11/24/2016 15:42:35 11/24/2016 17:22:27 Chronic low back pain 835962308 M54.5 Under the care of pain management . Hypertensive disorder 38 688981 I10 Low salt diet. Acid reflux 551770180 K2 1.9 Avoid grease food, or lie down after full meal. 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 Insomnia 879100512 G47.0 0 Screening for malignant neoplasm of colon 943415656 Z12.11 Under the care of his GI specialist Dr. Giselle Combs , he will be reminded for the F/U colonoscop y ex. [facility] [address] [place] [id number] 07/18/2017 16:08:55 07/18/2017 16:33:19 Acid reflux 861699824 K21.9 Avoid grease food, or lie down after full meal. Essential hypertension 23899042 I10 Low salt diet. Benign pro static hyperplasia 890530186 N40.0 Hypertensive disorder 38 189100 I10 Low salt diet. [id number] MD [facility] (Adult Med) [address] [place] [id number] 01/17/2018 15:42:23 01/19/2018 13:15:39 Administration of influenza vaccine 79027302 Z23 He tolerated flu shot well. Essential hypertension 78796178 I10 Low salt diet. Well controlled . Acid reflux 041570867 K2 1.9 Avoid grease food, or lie down after full meal. Screening for malignant neoplasm of colon 386752600 Z12.11 Under the care of his GI specialist Dr. Giselle Combs , he will be reminded for the F/U colonoscop y ex. [id number] Alyson Stack MD [facility] (Adult Med) [address] [place] [phone] 10/03/2018 12:18:55 10/03/2018 13:11:13 Essential hypertension 93159432 I10 Low salt diet. Well controlled . Cyclical v omiting syndrome 68966685 G43.A0 [id number] Alyson Stack MD [facility] (Adult Med) [address] [place] [address] 03/20/2019 14:56:51 03/21/2019 10:22:15 Hypertensive disorder 32690501 I10 Low salt diet. Cyclical v omiting syndrome 65518814 G43.A0 Stable. 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 Administra tion of influenza vaccine 29368079 Z23 He tolerated flu shot well. Health Concerns Section Related Observation LastModified by Organization Detai ls LastModified Time None Recorded Concern Status LastModified by Organization Details LastModified Time None Recorded Advance Directives Directive None Recorded Payers Encounter Date Sequence Insurance Name Policy Number Policy Bennett Covered Member ID Bennett Member ID Guarantor Name 11/24/2016 1 [place] [id number] Benitez Bridger [id number] Benitez Bridger 07/18/2017 1 [place] [id number] Benitez Warner [id number] Benitez Warner 01/17/2018 1 [place] [id number] Benitez Bridger [id number] Benitez Warner 10/03/2018 1 [place] [id number] Benitez Bridger [id number] Benitez Bridger 03/20/2019 1 [place] [id number] Benitez Warner [id number] Benitez Bridger Notes Date Note Type Note Provider Name and Address Organization Details Recorded Time 11/24/2016 text/html Weight gained, h e also goes to pain management, has sleeping disturbance , disabling from chronic pain syndrome, NKDA, not a smoker, nor a alcohol drinker. On movantik , has had epidural shots, on oxycondein also . Alyson Stack MD Attn: Accounting,[address] [facility], [place], [address], [facility] 11/24/2016 17:19:41 07/18/2017 text/html check up and refills of medications, no other complaints. NKDA. Cory Coats MA [facility], [place] - [place] 07/18/2017 18:07:00 01/17/2018 text/html Re-evaluate the acid reflux, and hypertension , he seems doing well for thes issues. NKDA. PSA in July 2017 is normal 0. 4, he is informed today, he has no urinary tract symptomes. He forgot the number to call for his colonoscope ex. scheduling. Alyson Stack MD Attn: Accounting,[address] [facility], [place], [address], [facility] 01/17/2018 16:31:06 10/03/2018 text/html Old left ear issue, also chronic lower back pain for decades, and left foot pain even which has been operated on many years ago. , seeing a specialist for narcotic pain medication. NKDA. Refills of medications for BP and stomach. Alyson Stack MD Attn: Accounting,[address] [place], [address], [facility] 10/03/2018 13:10:59 03/20/2019 text/html Lack of energy. wanting B12 shot , NKDA. has enough medictions refilled. Alyson Stack MD Attn: Accounting,[address] [place], [address], [facility] 03/20/2019 16:07:43
--- OUTSIDE RECORDS SUMMARY | 2024-09-21 06:39 | XMS_ITS | Referral Summary ---
Author Organization 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
[2024-09-21 07:15] LABS: Estimated Glomerular Filt Rate > 60
== END 2024-09-21 06:36 | disposition home or self-care (01) ==
PROVIDERS: PCP Family Medicine; Visit Provider Urology
DX: N32.89 Other specified disorders of bladder (principal); R31.0 Gross hematuria
CPT/HCPCS: 74018; 74178; Q9967

== ENCOUNTER 2024-10-04 09:52 | Outpatient (CLI) | payer MEDICARE, SELFPAY ==
--- OUTSIDE RECORDS SUMMARY | 2024-10-04 09:59 | XMS_ITS | Clinical Summary ---
Author Organization [facility] Facility Care Team Providers Care Mounter Automatic Name Role Phone Unknown, Notinfile Primary Care [...] on file Legal Sex Male 8:05 PM [employer] Gender Identity Not on file Sexual Orientation [...] [facility] Care Teams Mounter Automatic Relationship Specialty Start Date End Date Unknown, Notinfile PCP - General 01/16/19
--- OUTSIDE RECORDS SUMMARY | 2024-10-04 09:59 | XMS_ITS | CONTINUITY OF CARE DOCUMENT ---
Author Name maxx lilly Address Unknown Organization [facility] Address [address] [place] [address] Phone [phone] Care Team Providers Care Electrical Manager Name Role Phone maxx lilly Unavailable Unavailable INSURANCE PROVIDERS Payer name Policy type / Coverage type Eduardo red democrat ID [facility] [id number]
--- OUTSIDE RECORDS SUMMARY | 2024-10-04 09:59 | XMS_ITS | Referral Summary ---
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
--- OUTSIDE RECORDS SUMMARY | 2024-10-04 09:59 | XMS_ITS | Data Portability ---
Author Organization [facility] MUMTAZNani [facility] Address [address] [place], [place] [address] [address] Assessment No assessment recorded. Plan of Treatment Reminders Order Date Submit Date Provider Last Modified By Organization Details Last Modified Time Details Appointments None recorded. Lab vitamin B12 + folate, serum or blood 2018 019 SYLWIA [employer], [address] [place], [place] [address] [place], [address], [place], [address], 9 08:24:41 PSA, serum or plasma 2017 018 SYLWAI [facility], [address] [place], [place] [address] [place], [address], [place], [address], 8 13:11:42 CMP, serum or plasma 2016 017 [facility], [address] [place], [place] [address] [place], [address], [place], [address], 7 06:14:52 PSA, total + free, serum or plasma 2016 017 [facility], [address] [place], [place] [address] [place], [address], [place], [address], 7 06:14:52 hemoglobin , qualitativ e, stool by immunologi c method 2016 017 SYLWIA [employer], [facility] [employer] [address], [address], [place], [address], 7 17:19:05 Referral gastroente rologist referral - please contact patient to schedule thanks 2017 018 Alessandro Bucio MD, [address], [address], [place], [address], 9 16:16:37 gastroente rologist referral - Please call patient to schedule appt. [email or web address] 2016 017 [email or web address] Eric Galdamez MD, [address] [place], [address], 7 15:21:34 Procedures None recorded. Surgeries None recorded. Imaging None recorded. Medication Orders omeprazole 40 mg capsule,de layed release 2018 019 [facility], [address] [place], [address], 9 13:21:36 losartan 100 mg-hydroch lorothiazi de 25 mg tablet 2018 019 [facility], [address] [place], [address], 9 13:21:35 omeprazole 20 mg capsule,de layed release 2017 018 [facility], [address] [place], [address], 9 12:55:00 losartan 100 mg-hydroch lorothiazi de 25 mg tablet 2017 018 [facility], [address] [place], [address], 8 16:40:14 omeprazole 40 mg capsule,de layed release 2017 018 [facility], [address] [place], [address], 8 16:32:53 losartan 100 mg-hydroch lorothiazi de 25 mg tablet 2017 018 [facility], [address] [place], [address], 8 16:32:54 finasterid e 5 mg tablet 2017 018 [facility], [address] [place], [address], 9 12:54:31 omeprazole 40 mg capsule,de layed release 2016 017 [facility], [address] [place], [address], 7 17:14:35 losartan 100 mg-hydroch lorothiazi de 25 mg tablet 2016 017 [facility], [address] [place], [address], 7 17:14:37 trazodone 50 mg tablet 2016 017 [facility], [address] [place], [address], 8 16:21:15 finasterid e 5 mg tablet 2016 017 [facility], [address] [place], [address], 9 12:54:31 Patient TargetsNo targets recorded. Patient Instructions Encounter Date Encounter Id Patient Instructions Last Modified By Organization Details Last Modified Time 11/24/2016 [id number] insomnia: care instructions [facility] Not available 11/24/2016 17:19:13 07/18/2017 [id number] learning about high blood pressure [facility] Not available 07/18/2017 16:29:24 benign prostatic hyperplasia: care instructions [facility] Not available 07/18/2017 16:29:24 01/17/2018 [id number] learning about high blood pressure [facility] Not available 01/17/2018 16:29:43 10/03/2018 [id number] learning about high blood pressure [facility] Not available 10/03/2018 13:10:54 03/20/2019 [id number] influenza (flu) vaccine: care instructions [facility] Not available 03/20/2019 15:57:12 Reason for Referral Please call patient to daniella salgado Referring Physician: Alyson Stack, Internal Medicine, Encounter Date: 11/24/2016 Daytime Babysitter Referral for Screening for malignant neoplasm of colon please contact patient to schedule thanks Referring Physician: Alyson Stack, Internal Medicine, Encounter Date: 01/17/2018 Results Created Date Observation Date Name Description Value Unit Range Abnormal Flag Note LastModifiedBy Organization Detail LastModifiedTime 12/10/19 17 12/10/2016 CMP, serum or plasm a glucose, serum 103 mg/dL 65-99 above high normal Not Available [facility] ([facility]) [address] [place], [address], 12/10/2016 06:14:52 12/10/19 17 12/10/2016 CMP, serum or plasm a BUN 14 mg/dL 6-24 Not Available [facility] ([facility]) [address] [place], [address], 12/10/2016 06:14:52 12/10/19 17 12/10/2016 CMP, serum or plasm a creatinine, serum 0.95 mg/dL 0.76-1 .27 Not Available [facility] ([facility]) [address] [place], [address], 12/10/2016 06:14:52 12/10/19 17 12/10/2016 CMP, serum or plasm a eGFR if nonafricn AM 87 mL/mi n/1.7 3 >59 Not Available [facility] ([facility]) [address] [place], [address], 12/10/2016 06:14:52 12/10/19 17 12/10/2016 CMP, serum or plasm a eGFR if africn AM 101 mL/mi n/1.7 3 >59 Not Available [facility] ([facility]) [address] [facility], [place], [address], 12/10/2016 06:14:52 12/10/19 17 12/10/2016 CMP, serum or plasm a BUN/creatini ne ratio 15 9-20 Not Available [facility] ([facility]) [address] [facility] [place] [place], [address], 12/10/2016 06:14:52 12/10/19 17 12/10/2016 CMP, serum or plasm a sodium, serum 140 mmol/ L 134-14 4 Not Available [facility] ([facility]) [address] [facility], [place], [address], 12/10/2016 06:14:52 12/10/19 17 12/10/2016 CMP, serum or plasm a potassium, serum 5.0 mmol/ L 3.5-5. 2 Not Available [facility] ([facility]) [address] [facility], [place], [address], 12/10/2016 06:14:52 12/10/19 17 12/10/2016 CMP, serum or plasm a chloride, serum 97 mmol/ L 96-106 Not Available [facility] ([facility]) [address] [facility], [place], [address], 12/10/2016 06:14:52 12/10/1912/10/2016 CMP, serum or plasm a carbon dioxide, total 27 mmol/ L 18-29 Not Available [facility] ([facility]) [address] [facility] [place], [address], 12/10/2016 06:14:52 12/10/1912/10/2016 CMP, serum or plasm a calcium, serum 9.5 mg/dL 8.7-10 .2 Not Available [facility] ([facility]) [address] [place], [address], 12/10/2016 06:14:52 12/10/1912/1012/10/2016 CMP, serum or plasm a protein, total, serum 7.1 g/dL 6.0-8. 5 Not Available [facility] ([facility]) [address] [facility] [place] [place], [address], 12/10/2016 06:14:52 12/10/19 17 12/10/2016 CMP, serum or plasm a albumin, serum 4.6 g/dL 3.5-5. 5 Not Available [facility] ([facility]) [address] [facility] [place], [address], 12/10/2016 06:14:52 12/10/1912/10/2016 CMP, serum or plasm a globulin, total 2.5 g/dL 1.5-4. 5 Not Available [facility] ([facility]) [address] [facility] [place], [address], 12/10/2016 06:14:52 12/10/1912/10/2016 CMP, serum or plasm a A/G ratio 1.8 1.2-2. 2 Not Available [facility] ([facility]) [address] [facility] [place], [address], 12/10/2016 06:14:52 12/10/1912/10/2016 CMP, serum or plasm a bilirubin, total 0.3 mg/dL 0.0-1. 2 Not Available [facility] ([facility]) [address] [facility] [place], [address], 12/10/2016 06:14:52 12/10/1912/10/2016 CMP, serum or plasm a alkaline phosphatase, S 62 IU/L 39-117 Not Available [facility] ([facility]) [address] [facility] [place], [address], 12/10/2016 06:14:52 12/10/1912/10/2016 CMP, serum or plasm a AST (SGOT) 20 IU/L 0-40 Not Available [facility] ([facility]) [address] [facility], [place], [address], 12/10/2016 06:14:52 12/10/1912/10/2016 CMP, serum or plasm a ALT (SGPT) 30 IU/L 0-44 Not Available [facility] ([facility]) [address] [facility], [place], [address], 12/10/2016 06:14:52 12/10/1912/10/2016 PSA, total + free, [...] CANNO T BE INTER PRETE D ABSOL AMBLER EVIDE NCE OF THE PRESE NCE OR ABSEN CE OF V[place] SE. Not Available [facility] ([facility]) [address] [facility], [place], [address], 12/10/2016 06:14:52 12/10/1912/10/2016 PSA, total + free, serum or plasm a PSA, free 0.25 NG/mL n/a ANTHONY ECLIA METHO DOLOG Y. Not Available [facility] ([facility]) [address] [facility], [place], [address], 12/10/2016 06:14:52 12/10/1912/10/2016 PSA, total + free, [...] POPUL ATION OF MEN. Not Available [facility] ([facility] [employer]) [address] [facility], [place], [address], 12/10/2016 06:14:52 07/19/19 18 07/19/2017 PSA, serum [...] t be inter prete d as absol nenana evide nce of the prese nce or absen ce of [place] se. Not Available [facility] ([facility] [employer]) [address] [facility], [place], [address], 07/19/2017 13:11:42 03/20/20 19 03/21/2019 vitam in B12 + folat e, serum or blood vitamin B12 1068 pg/mL 232-12 45 Not Available [facility] ([facility]) [address] [facility], [place], [address], 03/21/2019 08:24:41 03/20/20 19 03/21/2019 vitam in B12 + folat e, serum or blood folate (folic acid), serum >20.0 NG/mL >3.0 A serum folat e esli ntrat ion of less than 3.1 ng/mL is consi dered to repre sent clini seth defic iency . Not Available [facility] ([facility]) [address] [facility], [place], [address], 03/21/2019 08:24:41 02/07/20 20 02/07/2020 LDCT, chest , for lung josece r lyric mitchell No observ ation record ed. [facility] (Imaging) [address] [place], [address], 02/08/2020 14:26:28 Result Notes None recorded. Problems Name Problem SNOMED Code Status Onset Date Resolution Date Notes Provider Name and Address Organization Details Recorded Time Cyclical vomiting syndrome 79220478 Active Alyson Stack MD Attn: Adan gupta,[address] [facility] [address], [place], [address], [place] - [facility] 6 10:54:26 Pain of shoulder region 65031347 Active Temitope Hancock LPN null, [place] - [facility] 5 09:07:46 Hypertensive disorder 79461645 Active Alyson Stack MD Attn: Adan gupta,[address] [facility] [address], [place], [address], [place] - [facility] 6 10:54:26 Chronic pain syndrome 797149328 Active Alyson Stack MD Attn: Adan gupta,[address] [facility], [place], [address], [place] [facility] 6 10:54:26 Problem Notes None recorded. Procedures Surgical History Date Name Laterality Status Provider Name and Address Organization Details Recorded Time 4 Diagnostic colonoscopy completed Cory Coats [place] - [facility] 12/05/2014 16:05:51 Knee Surgery completed Cory Coats MA [place] - [facility] 12/05/2014 16:05:51 Imaging Results Imaging Date Name Status LastModified by Organiz ation Details LastModified Time 02/07/2020 LDCT, chest, for lung cancer screening completed [facility] (Imaging) [address], [place], [address], 02/08/2020 14:26:28 Procedure Notes None recorded. Medical [...] Updated DateTime 8 167.64 cm 31 kg/m2 63671.0 2 g 98.1 [degF] 97 % 97 % 87 /min 126 mm[Hg] 70 mm[Hg] Cory Coats MA [facility] 8 16:23:57 Date Recorded Body height Body mass index (BMI) Body weight Heart rate Body temperature Oxygen saturation Oxygen saturation in Arterial blood by Pulse oximetry Provider Name and Address Organization Details Last Updated DateTime 8 167.64 cm 30.3 kg/m2 16141.9 7 g 88 /min 98.1 [degF] 96 % 96 % Juany Pacheco [facility] 8 16:05:51 Date Recorded Systolic blood pressure Diastolic blood pressure Provider Name and Address Organization Details Last Updated DateTime 01/17/2018 120 mm[Hg] 80 mm[Hg] Alyson Stack MD Attn: Accounting,[address] [facility], [place], [address], [facility] 01/17/2018 16:26:41 Date Recorded Body height Body mass index (BMI) Body weight Body temperature Oxygen saturation Oxygen saturation in Arterial blood by Pulse oximetry Heart rate Systolic blood pressure Diastolic blood pressure Provider Name and Address Organization Details Last Updated DateTime 9 167.64 cm 29.8 kg/m2 97023.8 7 g 98.1 [degF] 94 % 94 % 96 /min 100 mm[Hg] 70 mm[Hg] Cory Coats MA [facility] 9 13:00:51 Date Recorded Body height Body mass index (BMI) Body weight Body temperature Oxygen saturation Oxygen saturation in Arterial blood by Pulse oximetry Heart rate Systolic blood pressure Diastolic blood pressure Provider Name and Address Organization Details Last Updated DateTime 9 167.64 cm 29.4 kg/m2 88306.8 1 g 97.3 [degF] 95 % 95 % 94 /min 96 mm[Hg] 66 mm[Hg] Cory Coats MA [facility] 9 15:48:06 Date Recorded Body height Body mass index (BMI) Body weight Body temperature Oxygen saturation Oxygen saturation in Arterial blood by Pulse oximetry Heart rate Systolic blood pressure Diastolic blood pressure Provider Name and Address Organization Details Last Updated DateTime 7 167.64 cm 30.5 kg/m2 55249.9 6 g 97.7 [degF] 96 % 96 % 87 /min 108 mm[Hg] 70 mm[Hg] Cory Coats MA [facility] 7 16:47:34 Social History Question Answer Notes LastModified by Organizat ion Details LastModified Time Tobacco Smoking Status Former Smoker cigarettes Cory Coats MA null, [facility] 12/05/2014 16:05:51 What Was The Date Of Your Most Recent Tobacco Screening? 01/17/2018 Information not available 12/07/2018 How Many Years Have You Smoked Tobacco? 5 Information not available 12/05/2014 Sex: Unknown Functional Status Question Answer Note LastModified by Organization D etails LastModified Time What is your level of alcohol consumption? None Information not available 12/05/2014 Mental Status None recorded. Family History Nothing [...] virus, quadrivalent, preservative 6 completed Not Available [facility] 06/02/2019 02:40:55 Influenza, split virus, quadrivalent, preservative 8 completed Not Available [facility] 06/02/2019 02:44:14 Influenza, split virus, quadrivalent, preservative 9 completed Not Available [facility] 06/02/2019 02:38:44 Td (adult), 5 Lf tetanus toxoid, preservative free, adsorbed 5 completed Not Available [facility] 06/02/2019 02:41:30 Past Encounters Encounter ID Performer Location Encounter Start Date Encounter Closed Date Diagnosis/Indication Diagnosis SNOMED-CT Code Diagnosis ICD10 Code Diagnosis Note [id number] Alyson Stack MD [facility] (Adult Med) [address] [place] [address] 12/05/2014 15:51:34 12/05/2014 16:58:20 Adult health examination 253701177 Cyclical v omiting syndrome 39700053 Ex-smoker 3974683 [id number] Alyson Stack MD [facility] (Adult Med) [address] [place] [address] 09/29/2015 10:19:16 09/29/2015 10:57:18 Cyclical vomiting syndrome 58040699 G43.A0 Hypertensive disorder 38 040485 I10 Chronic pain syndrome 37 3300310 G89.4 [id number] Alyson Stack MD [facility] (Adult Med) [address] [place] [address] 03/29/2016 10:08:01 03/29/2016 11:55:05 Cyclical vomiting syndrome 04020715 G43.A0 Chronic pain syndrome 37 8143972 G89.4 Hypertensive disorder 38 751976 I10 Drug-induc ed constipation 20942679 K59.03 Chronic ob structive pulmonary disease 90657506 J44.9 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 Hypertensive disorder 38 166755 I10 Low salt diet. Acid reflux 783978145 K2 1.9 Avoid grease food, or lie down after full meal. 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 Insomnia 814724346 G47.0 0 Screening for malignant neoplasm of colon 680203600 Z12.11 Under the care of his GI specialist Dr. Giselle Combs , he will be reminded for the F/U colonoscop y ex. MD [facility] Ramos (Adult Med) [address] [place] [address] 07/18/2017 16:08:55 07/18/2017 16:33:19 Acid reflux 347451069 K21.9 Avoid grease food, or lie down after full meal. Essential hypertension 94058942 I10 Low salt diet. Benign pro static hyperplasia 289802291 N40.0 Hypertensive disorder 38 463900 I10 Low salt diet. [id number] MD Gilbert Ramos (Adult Med) [address] [place] [address] 01/17/2018 15:42:23 01/19/2018 13:15:39 Administration of influenza vaccine 03050694 Z23 He tolerated flu shot well. Essential hypertension 21892621 I10 Low salt diet. Well controlled . Acid reflux 947993197 K2 1.9 Avoid grease food, or lie down after full meal. Screening for malignant neoplasm of colon 930547018 Z12.11 Under the care of his GI specialist Dr. Giselle Combs , he will be reminded for the F/U colonoscop y ex. [id number] MD Gilbert Ramos (Adult Med) [address] [place] [id number] 10/03/2018 12:18:55 10/03/2018 13:11:13 Essential hypertension 02382826 I10 Low salt diet. Well controlled . Cyclical v omiting syndrome 66937308 G43.A0 [id number] MD Gilbert Ramos (Adult Med) [address] [place] [address] 03/20/2019 14:56:51 03/21/2019 10:22:15 Hypertensive disorder 04923014 I10 Low salt diet. Cyclical v omiting syndrome 94202378 G43.A0 Stable. Vitamin B1 2 deficiency (non anemic) 58148352 E53.8 Discussed with patient, he agreed for the blood test to determine if he has B12 deficiency . Administra tion of influenza vaccine 28284284 Z23 He tolerated flu shot well. Health Concerns Section Related Observation LastModified by Organization Detai ls LastModified Time None Recorded Concern Status LastModified by Organization Details LastModified Time None Recorded Advance Directives Directive None Recorded Payers Encounter Date Sequence Insurance Name Policy Number Policy Bennett Covered Member ID Bennett Member ID Guarantor Name 11/24/2016 1 [place] [id number] Benitez Warner [id number] Ben[place]z [place] 07/18/2017 1 [place] [id number] Benitez Warner [id number] [place]z [place] 01/17/2018 1 [place] [id number] Benitez [place] [id number] Benitez Warner 10/03/2018 1 [place] [id number] Benitez Warner [id number] Benitez Warner 03/20/2019 1 [place] [id number] Benitez [place] [id number] [employer] [place] Notes Date Note Type Note Provider Name and Address Organization Details Recorded Time 11/24/2016 text/html Weight gained, h e also goes to pain management, has sleeping disturbance , disabling from chronic pain syndrome, NKDA, not a smoker, nor a alcohol drinker. On movantik , has had epidural shots, on oxycondein also . Alyson Stack MD Attn: Accounting,[address] [facility] [address], [place], [address], [facility] 11/24/2016 17:19:41 07/18/2017 text/html check up and refills of medications, no other complaints. NKDA. Cory Coats MA [facility], [facility] 07/18/2017 18:07:00 01/17/2018 text/html Re-evaluate the acid reflux, and hypertension , he seems doing well for thes issues. NKDA. PSA in July 2017 is normal 0. 4, he is informed today, he has no urinary tract symptomes. He forgot the number to call for his colonoscope ex. scheduling. Alyson Stack MD Attn: Accounting,[address] [facility] [address], [place], [address], [facility] 01/17/2018 16:31:06 10/03/2018 text/html Old left ear issue, also chronic lower back pain for decades, and left foot pain even which has been operated on many years ago. , seeing a specialist for narcotic pain medication. NKDA. Refills of medications for BP and stomach. Alyson Stack MD Attn: Accounting,[address] [place], [address], [facility] 10/03/2018 13:10:59 03/20/2019 text/html Lack of energy. wanting B12 shot , NKDA. has enough medictions refilled. Alyson Stack MD Attn: Accounting,[address] [place], [address], [facility] 03/20/2019 16:07:43
--- NOTE | 2024-10-04 10:02 | ECG_ITS ---
Test Date: 2024-10-04 10:25:15 Measurements Intervals Georgiana Rate: 87 P: 56 DE: 156 QRS: 24 QRSD: 130 T: 31 QT: 344 QTc: 415 Interpretive Statements SINUS RHYTHM RIGHT BUNDLE BRANCH BLOCK [120+ ms QRS DURATION, UPRIGHT V1, 40+ ms S IN I/aVL/V4/V5/V6] WARNING: DATA QUALITY MAY AFFECT INTERPRETATION No previous ECG available for comparison Electronically Signed On 10-04-2024 14:11:04 CDT by Andrew Rodriguez M.D.
[2024-10-04 10:33] LABS: Basophils Absolute Auto 0.1 K/mm3 (0.0-0.1); Basophils Percent Auto 0.6 % (0.2-1.2); Eosinophils Absolute Auto 0.2 K/mm3 (0-0.3); Eosinophils Percent Auto 1.8 % (0-4.4); Hematocrit 50.4 % (42.0-52.0); Hemoglobin 16.9 g/dL (14.0-18.0); Immature Granulocyte Absolute 0.03 K/mm3 (0.00-0.031); Immature Granulocyte Percent A 0.3 % (0-0.5); Lymphocytes Absolute Auto 1.72 K/mm3 (0.9-3.2); Lymphocytes Percent Auto 19.5 % (18.3-44.2); Mean Corpuscular HGB Conc 33.5 g/dl (32-36); Mean Corpuscular Hemoglobin 30.2 pg (26-34); Mean Platelet Volume 9.4 fl (7.4-10.4); Monocytes Absolute Auto 0.9 K/mm3 (0.1-0.6); Neutrophils Percent Auto 67.8 % (45.5-73.1); Platelet Count Result 259 k/mm3 (150-375); Red Cell Distribution Width 12.4 % (11.5-14.5); White Blood Count 8.8 K/mm3 (4.5-10.0)
[2024-10-04 10:46] LABS: Anion Gap 7 mmol/L (4-12); Blood Urea Nitrogen 18 mg/dL (9-20); Calcium 9.6 mg/dL (8.4-10.2); Carbon Dioxide 33 mmol/L (22-30); Chloride 97 mmol/L (98-107); Estimated Glomerular Filt Rate > 60; Glucose 117 mg/dL (65-110); Potassium 4.2 mmol/L (3.4-5.0); Sodium 137 mmol/L (137-145)
[2024-10-04 11:08] LABS: Partial Thromboplastin Time 29.5 Seconds (22.3-36.8); Prothrombin Time 13.4 Seconds (11.1-14.7)
== END 2024-10-04 09:53 | disposition home or self-care (01) ==
LOC: ANHSURGERY 09:56
PROVIDERS: PCP Family Medicine; Visit Provider Urology
DX: Z01.818 Encounter for other preprocedural examination (principal); D49.4 Neoplasm of unspecified behavior of bladder; I10 Essential (primary) hypertension; I45.10 Unspecified right bundle-branch block
CPT/HCPCS: 36415; 80048; 85025; 85610; 85730; 87086; 87181; 93005

== ENCOUNTER 2024-10-09 00:18 | Day surgery (SDC) | payer MEDICARE, SELFPAY ==
--- NOTE | 2024-10-01 13:00 | PC.NURSE ---
Report to the Outpatient Waiting Room, entrance under the green pavilion located off [facility], at time _7:15 AM on date __10/09/24 . Planned Procedure Time: ___9:15 AM .? Time changes happen often and if your time is changed the preop area will call you the afternoon before. - You and your visitor will be asked to self-screen and do not enter if you have any COVID symptoms. Please call surgeon if you need to reschedule. - A mask is optional within the hospital at this time. Patients may have clear liquids (water, carbonated beverages, clear teas, apple juice) until 3 hours prior to surgery ( 6:15 AM) with a maximum of 20 ounces. - No food from midnight until time of surgery and no smoking, or chewing tobacco (or any form of nicotine). No chewing gum, candy or mints. - Take only the following medications with a SIP of water on the morning of surgery: __HYDROCODONE IF NEEDED DO NOT STOP ANY OF YOUR OTHER PRESCRIPTION MEDICATIONS PRIOR TO SURGERY EXCEPT THE FOLLOWING Hold all vitamins and supplements for 3 days per anesthesiologist.LAST DOSE 10/01/24 Medications to discontinue per physician NONE Please no make-up, nail persian, hairspray, perfume, deodorant, or body powder the day of surgery.? No jewelry (including any body piercings) or valuables the day of surgery, leave them at home.? Please take a shower or bath the night before, or the morning of, surgery with an antibacterial soap.? Wear comfortable, loose fitting clothing.? Children are encouraged to wear pajamas. - Jewelry must be removed prior to entering the operating room.? Rings and piercings that are not removed may be cut off. - The hospital will not accept responsibility for valuables.? - Please leave all valuables, including medications, at home the day of surgery. If you are going home after surgery, a licensed company truck driver must drive you home.? - NO public transportation without another adult if you receive anesthesia. - We recommend that an adult stay with you for 24 hours following discharge. - We also recommend that you do not drive, make important decision, drink alcoholic beverages, or take any drugs that were not prescribed by your health care provider for at least 24 hours after your discharge time. For Pediatric surgeries, we recommend two adults accompany the child home. Follow any additional instructions given to you from your surgeon. Telephone instructions given to ___PATIENT and asked if any additional questions and then verbalized understanding. Patient advised to call surgeon office or pre surgery nurse liaison [phone] if any additional questions.
[2024-10-01 13:16] VITALS: BMI 25.0
[2024-10-09] VITALS (11 sets, daily range): BP systolic 89–131; BP diastolic 60–78; PULSE 58–72; RESP 12–18; TEMP 36.2–36.6; O2SAT 95–100
--- OUTSIDE RECORDS SUMMARY | 2024-10-09 00:27 | XMS_ITS | CONTINUITY OF CARE DOCUMENT ---
Author Name maxx lilly Address Unknown Organization [facility] Address [address] [place] [address] Phone [phone] Care Team Providers Care Md Urologist Name Role Phone maxx lilly Unavailable Unavailable INSURANCE PROVIDERS Payer name Policy type / Coverage type Eduardo red democrat ID [facility] [id number]
--- OUTSIDE RECORDS SUMMARY | 2024-10-09 00:27 | XMS_ITS | Data Portability ---
Author Organization [facility] MUMTAZNani Golisano [facility] Address [address] [place], [place] [address] [address] Assessment No assessment recorded. Plan of Treatment Reminders Order Date Submit Date Provider Last Modified By Organization Details Last Modified Time Details Appointments None recorded. Lab vitamin B12 + folate, serum or blood 2018 019 SYLWIA Endo[employer]hereMABEL, [address] [place], [place] [address] [address], [address], [place], [address], 9 08:24:41 PSA, serum or plasma 2017 018 SYLWIA LABMABELRP, [address] [place], [place] [address] [address], [address], [place], [address], 8 13:11:42 CMP, serum or plasma 2016 017 [facility], [address] [place], [place] [address] [address], [address], [place], [address], 7 06:14:52 PSA, total + free, serum or plasma 2016 017 [facility], [address] [place], [place] [address] [place], [address], [place], [address], 7 06:14:52 hemoglobin , qualitativ e, stool by immunologi c method 2016 017 SYLWIA EndoSphereMABEL, [facility] [employer] [address], [address], [place], [address], 7 17:19:05 Referral gastroente rologist referral - please contact patient to schedule thanks 2017 018 Alessandro Bucio MD, [address], [address], [place], [address], 9 16:16:37 gastroente rologist referral - Please call patient to schedule appt. [email or web address] 2016 017 [email or web address] Eric Galdamez MD, [address] [place], [address], 7 15:21:34 Procedures None recorded. Surgeries None recorded. Imaging None recorded. Medication Orders omeprazole 40 mg capsule,de layed release 2018 019 [facility], [address] [place], [address], 9 13:21:36 losartan 100 mg-hydroch lorothiazi de 25 mg tablet 2018 019 [facility], [address] [place], [address], 9 13:21:35 omeprazole 20 mg capsule,de layed release 2017 018 [facility], [address] [place], [address], 9 12:55:00 losartan 100 mg-hydroch lorothiazi de 25 mg tablet 2017 018 [facility], [address] [place], [address], 8 16:40:14 omeprazole 40 mg capsule,de layed release 2017 018 [facility], [address] [place], [address], 8 16:32:53 losartan 100 mg-hydroch lorothiazi de 25 mg tablet 2017 018 [facility], [address] [place], [address], 8 16:32:54 finasterid e 5 mg tablet 2017 018 [facility], [address] [place], [address], 9 12:54:31 omeprazole 40 mg capsule,de layed release 2016 017 [facility], [address] [place], [address], 7 17:14:35 losartan 100 mg-hydroch lorothiazi de 25 mg tablet 2016 017 [facility], [address] [place], [address], 7 17:14:37 trazodone 50 mg tablet 2016 017 [facility], [address] [place], [address], 8 16:21:15 finasterid e 5 mg tablet 2016 017 [facility], [address] [place], [address], 9 12:54:31 Patient TargetsNo targets recorded. Patient Instructions Encounter Date Encounter Id Patient Instructions Last Modified By Organization Details Last Modified Time 11/24/2016 [id number] insomnia: care instructions [facility] Not available 11/24/2016 17:19:13 07/18/2017 [id number] learning about high blood pressure [facility] Not available 07/18/2017 16:29:24 benign prostatic hyperplasia: care instructions [facility] Not available 07/18/2017 16:29:24 01/17/2018 [id number] learning about high blood pressure [facility] Not available 01/17/2018 16:29:43 10/03/2018 [id number] learning about high blood pressure [facility] Not available 10/03/2018 13:10:54 03/20/2019 [id number] influenza (flu) vaccine: care instructions [facility] Not available 03/20/2019 15:57:12 Reason for Referral Please call patient to daniella salgado Referring Physician: Alyson Stack, Internal Medicine, Encounter Date: 11/24/2016 Retail Team Member Referral for Screening for malignant neoplasm of colon please contact patient to schedule thanks Referring Physician: Alyson Stack, Internal Medicine, Encounter Date: 01/17/2018 Results Created Date Observation Date Name Description Value Unit Range Abnormal Flag Note LastModifiedBy Organization Detail LastModifiedTime 12/10/19 17 12/10/2016 CMP, serum or plasm a glucose, serum 103 mg/dL 65-99 above high normal Not Available [facility] ([facility]) [address] [place], [address], 12/10/2016 06:14:52 12/10/19 17 12/10/2016 CMP, serum or plasm a BUN 14 mg/dL 6-24 Not Available [facility] ([facility]) [address] [place], [address], 12/10/2016 06:14:52 12/10/19 17 12/10/2016 CMP, serum or plasm a creatinine, serum 0.95 mg/dL 0.76-1 .27 Not Available [facility] ([facility]) [address] [place], [address], 12/10/2016 06:14:52 12/10/19 17 12/10/2016 CMP, serum or plasm a eGFR if nonafricn AM 87 mL/mi n/1.7 3 >59 Not Available [facility] ([facility]) [address] [place], [address], 12/10/2016 06:14:52 12/10/19 17 12/10/2016 CMP, serum or plasm a eGFR if africn AM 101 mL/mi n/1.7 3 >59 Not Available [facility] ([facility]) [address] [facility], [place], [address], 12/10/2016 06:14:52 12/10/19 17 12/10/2016 CMP, serum or plasm a BUN/creatini ne ratio 15 9-20 Not Available [facility] ([facility]) [address] [facility] [place], [address], 12/10/2016 06:14:52 12/10/19 17 12/10/2016 CMP, serum or plasm a sodium, serum 140 mmol/ L 134-14 4 Not Available [facility] ([facility]) [address] [facility], [place], [address], 12/10/2016 06:14:52 12/10/19 17 12/10/2016 CMP, serum or plasm a potassium, serum 5.0 mmol/ L 3.5-5. 2 Not Available [facility] ([facility]) [address] [facility], [place], [address], 12/10/2016 06:14:52 12/10/19 17 12/10/2016 CMP, serum or plasm a chloride, serum 97 mmol/ L 96-106 Not Available [facility] ([facility]) [address] [facility], [place], [address], 12/10/2016 06:14:52 12/10/1912/10/2016 CMP, serum or plasm a carbon dioxide, total 27 mmol/ L 18-29 Not Available [facility] ([facility]) [address] [facility] [place], [address], 12/10/2016 06:14:52 12/10/1912/10/2016 CMP, serum or plasm a calcium, serum 9.5 mg/dL 8.7-10 .2 Not Available [facility] ([facility]) [address] [place], [address], 12/10/2016 06:14:52 12/10/1912/1012/10/2016 CMP, serum or plasm a protein, total, serum 7.1 g/dL 6.0-8. 5 Not Available [facility] ([facility]) [address] [facility] [place], [address], 12/10/2016 06:14:52 12/10/19 17 12/10/2016 CMP, serum or plasm a albumin, serum 4.6 g/dL 3.5-5. 5 Not Available [facility] ([facility]) [address] [facility] [place], [address], 12/10/2016 06:14:52 12/10/1912/10/2016 CMP, serum or plasm a globulin, total 2.5 g/dL 1.5-4. 5 Not Available [facility] ([facility]) [address] [facility] [place], [address], 12/10/2016 06:14:52 12/10/1912/10/2016 CMP, serum or plasm a A/G ratio 1.8 1.2-2. 2 Not Available [facility] ([facility]) [address] [facility] [place], [address], 12/10/2016 06:14:52 12/10/1912/10/2016 CMP, serum or plasm a bilirubin, total 0.3 mg/dL 0.0-1. 2 Not Available [facility] ([facility]) [address] [facility] [place], [address], 12/10/2016 06:14:52 12/10/1912/10/2016 CMP, serum or plasm a alkaline phosphatase, S 62 IU/L 39-117 Not Available [facility] ([facility]) [address] [facility] [place], [address], 12/10/2016 06:14:52 12/10/1912/10/2016 CMP, serum or plasm a AST (SGOT) 20 IU/L 0-40 Not Available [facility] ([facility]) [address] [facility], [place], [address], 12/10/2016 06:14:52 12/10/1912/10/2016 CMP, serum or plasm a ALT (SGPT) 30 IU/L 0-44 Not Available [facility] ([facility]) [address] [facility], [place], [address], 12/10/2016 06:14:52 12/10/1912/10/2016 PSA, total + free, [...] CANNO T BE INTER PRETE D ABSOL KIPNUK EVIDE NCE OF THE PRESE NCE OR ABSEN CE OF [place] SE. Not Available [facility] ([facility]) [address] [facility], [place], [address], 12/10/2016 06:14:52 12/10/1912/10/2016 PSA, total + free, serum or plasm a PSA, free 0.25 NG/mL n/a ANTHONY ECLIA METHO DOLOG Y. Not Available [facility] ([facility]) [address] [facility], [place], [address], 12/10/2016 06:14:52 12/10/1912/10/2016 PSA, total + free, [...] POPUL ATION OF MEN. Not Available [facility] ([facility] [employer]) [address] [facility], [place], [address], 12/10/2016 06:14:52 07/19/19 18 07/19/2017 PSA, serum [...] t be inter prete d as absol [place] evide nce of the prese nce or absen ce of [place] se. Not Available [facility] ([facility] [employer]) [address] [facility], [place], [address], 07/19/2017 13:11:42 03/20/20 19 03/21/2019 vitam in B12 + folat e, serum or blood vitamin B12 1068 pg/mL 232-12 45 Not Available [facility] ([facility]) [address] [facility], [place], [address], 03/21/2019 08:24:41 03/20/20 19 03/21/2019 vitam in B12 + folat e, serum or blood folate (folic acid), serum >20.0 NG/mL >3.0 A serum folat e elsi ntrat ion of less than 3.1 ng/mL is consi dered to repre sent clini seth defic iency . Not Available [facility] ([facility]) [address] [facility], [place], [address], 03/21/2019 08:24:41 02/07/20 20 02/07/2020 LDCT, chest , for lung josece r lyric mitchell No observ ation record ed. [facility] (Imaging) [address] [place], [address], 02/08/2020 14:26:28 Result Notes None recorded. Problems Name Problem SNOMED Code Status Onset Date Resolution Date Notes Provider Name and Address Organization Details Recorded Time Cyclical vomiting syndrome 01821448 Active Alyson Stack MD Attn: Adan gupta,[address] [facility], [place], [address], [place] [facility] 6 10:54:26 Pain of shoulder region 72595233 Active Temitope Hancock LPN null, [place] [facility] 5 09:07:46 Hypertensive disorder 74085833 Active Alyson Stack MD Attn: Adan gupta,[address] [facility], [place], [address], [place] [facility] 6 10:54:26 Chronic pain syndrome 174566726 Active Alyson Stack MD Attn: Adan gupta,[address] [facility], [place], [address], [place] [facility] 6 10:54:26 Problem Notes None recorded. Procedures Surgical History Date Name Laterality Status Provider Name and Address Organization Details Recorded Time 4 Diagnostic colonoscopy completed Cory Coats [place] [facility] 12/05/2014 16:05:51 Knee Surgery completed Cory Coats MA [facility] 12/05/2014 16:05:51 Imaging Results None recorded. Procedure Notes None recorded. Medical Equipment None [...] blood by Pulse oximetry Heart rate Systolic And Diastolic Provider Name and Address Organization Details Last Updated DateTime 8 167.64 cm 31 kg/m2 08004.0 2 g 98.1 [degF] 97 % 97 % 87 /min 126/70 mm[Hg] Cory Coats MA [facility] 8 16:23:57 Date Recorded Body height Body mass index (BMI) Body weight Body temperature Oxygen saturation Oxygen saturation in Arterial blood by Pulse oximetry Heart rate Systolic And Diastolic Provider Name and Address Organization Details Last Updated DateTime 9 167.64 cm 29.8 kg/m2 32667.8 7 g 98.1 [degF] 94 % 94 % 96 /min 100/70 mm[Hg] Cory Coats MA [facility] 9 13:00:51 Date Recorded Body height Body mass index (BMI) Body weight Body temperature Oxygen saturation Oxygen saturation in Arterial blood by Pulse oximetry Heart rate Systolic And Diastolic Provider Name and Address Organization Details Last Updated DateTime 7 167.64 cm 30.5 kg/m2 95480.9 6 g 97.7 [degF] 96 % 96 % 87 /min 108/70 mm[Hg] Cory Coats MA [facility] 7 16:47:34 Date Recorded Systolic And Diastolic Provider Name and Address Organization Details Last Updated DateTime 01/17/2018 120/80 mm[Hg] Alyson Stack MD Attn: Accounting,[address] , [place], [address], [place] - [place] 01/17/2018 16:26:41 Date Recorded Body height Body mass index (BMI) Body weight Heart rate Body temperature Oxygen saturation Oxygen saturation in Arterial blood by Pulse oximetry Provider Name and Address Organization Details Last Updated DateTime 8 167.64 cm 30.3 kg/m2 85848.9 7 g 88 /min 98.1 [degF] 96 % 96 % [facility] 8 16:05:51 Date Recorded Body height Body mass index (BMI) Body weight Body temperature Oxygen saturation Oxygen saturation in Arterial blood by Pulse oximetry Heart rate Systolic And Diastolic Provider Name and Address Organization Details Last Updated DateTime 9 167.64 cm 29.4 kg/m2 40918.8 1 g 97.3 [degF] 95 % 95 % 94 /min 96/66 mm[Hg] Cory Coats MA [facility] 9 15:48:06 Social History Question Answer Notes LastModified by Organizat ion Details LastModified Time Tobacco Smoking Status Former Smoker cigarettes RICHAR Kelsey [facility] 12/05/2014 16:05:51 What Was The Date Of [...] mRNA, LNP-S, PF, 30 mcg/0.3 mL dose completed Jorge Luis fulton [facility] 11/12/2020 16:39:53 COVID-19, mRNA, LNP-S, PF, 30 mcg/0.3 mL dose 1 completed [facility] 11/12/2020 16:40:10 Influenza, split virus, quadrivalent, preservative 6 completed Not Available [facility] 06/02/2019 02:40:55 Influenza, split virus, quadrivalent, preservative 8 completed Not Available [facility] 06/02/2019 02:44:14 Influenza, split virus, quadrivalent, preservative 9 completed Not Available [facility] 06/02/2019 02:38:44 Td (adult), 5 Lf tetanus toxoid, preservative free, adsorbed 5 completed Not Available [facility] 06/02/2019 02:41:30 Past Encounters Encounter ID Performer Location Encounter Start Date Encounter Closed Date Diagnosis/Indication Diagnosis SNOMED-CT Code Diagnosis ICD10 Code Diagnosis Note [id number] Alyson Stack MD [facility] (Adult Med) [address] [place] [address] 12/05/2014 15:51:34 12/05/2014 16:58:20 Adult health examination 033698691 Cyclical v omiting syndrome 24307370 Ex-smoker 0615526 [id number] Alyson Stack MD [facility] (Adult Med) [address] [place] [phone] 09/29/2015 10:19:16 09/29/2015 10:57:18 Cyclical vomiting syndrome 95848290 G43.A0 Hypertensive disorder 38 138186 I10 Chronic pain syndrome 37 6769237 G89.4 [id number] Alyson Stack MD [facility] (Adult Med) [address] [place] [phone] 03/29/2016 10:08:01 03/29/2016 11:55:05 Cyclical vomiting syndrome 22772485 G43.A0 Chronic pain syndrome 37 1791036 G89.4 Hypertensive disorder 38 929633 I10 Drug-induc ed constipation 47072283 K59.03 Chronic ob structive pulmonary disease 27926181 J44.9 Tobacco de pendence syndrome 60408054 F17.290 Needs infl uenza immunization 285835404 Z23 [id number] Alyson Stack MD [facility] (Adult Med) [address] [place] [id number] 11/24/2016 15:42:35 11/24/2016 17:22:27 Chronic low back pain 669539322 M54.5 Under the care of pain management . Hypertensive disorder 38 186589 I10 Low salt diet. Acid reflux 569644206 K2 1.9 Avoid grease food, or lie down after full meal. 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 Insomnia 042423594 G47.0 0 Screening for malignant neoplasm of colon 023887709 Z12.11 Under the care of his GI specialist Dr. Giselle Combs , he will be reminded for the F/U colonoscop y ex. [id number] Alyson Stack MD [facility] (Adult Med) [address] [place] [phone] 07/18/2017 16:08:55 07/18/2017 16:33:19 Acid reflux 169469642 K21.9 Avoid grease food, or lie down after full meal. Essential hypertension 11646434 I10 Low salt diet. Benign pro static hyperplasia 855196788 N40.0 Hypertensive disorder 38 992427 I10 Low salt diet. [id number] Alyson Stack MD [facility] (Adult Med) [address] [place] [phone] 01/17/2018 15:42:23 01/19/2018 13:15:39 Administration of influenza vaccine 61814957 Z23 He tolerated flu shot well. Essential hypertension 41961326 I10 Low salt diet. Well controlled . Acid reflux 238698795 K2 1.9 Avoid grease food, or lie down after full meal. Screening for malignant neoplasm of colon 190233065 Z12.11 Under the care of his GI specialist Dr. Giselle Combs , he will be reminded for the F/U colonoscop y ex. [id number] Alyson Stack MD [facility] (Adult Med) [address] [place] [id number] 10/03/2018 12:18:55 10/03/2018 13:11:13 Essential hypertension 09332101 I10 Low salt diet. Well controlled . Cyclical v omiting syndrome 95045552 G43.A0 [id number] Alyson Stack MD [facility] (Adult Med) [address] [place] [address] 03/20/2019 14:56:51 03/21/2019 10:22:15 Hypertensive disorder 55782908 I10 Low salt diet. Cyclical v omiting syndrome 87959938 G43.A0 Stable. Vitamin B1 2 deficiency (non anemic) 26123235 E53.8 Discussed with patient, he agreed for the blood test to determine if he has B12 deficiency . Administra tion of influenza vaccine 65305085 Z23 He tolerated flu shot well. Health Concerns Section Related Observation LastModified by Organization Detai ls LastModified Time None Recorded Concern Status LastModified by Organization Details LastModified Time None Recorded Advance Directives Directive None Recorded Payers Encounter Date Sequence Insurance Name Policy Number Policy Bennett Covered Member ID Bennett Member ID Guarantor Name 11/24/2016 1 [place] [id number] [employer] [place] [id number] [employer] 07/18/2017 1 [employer] [id number] [employer] [place] [id number] [employer] [place] 01/17/2018 1 [place] [id number] [employer]z [employer] [id number] [employer] 10/03/2018 1 [place] [id number] Ben[employer]z [employer] [id number] [employer] [place] 03/20/2019 1 [place] [id number] Ben[employer]z Warner [id number] [employer] [place] Notes Date Note Type Note Provider Name and Address Organization Details Recorded Time 11/24/2016 text/html Weight gained, h e also goes to pain management, has sleeping disturbance , disabling from chronic pain syndrome, NKDA, not a smoker, nor a alcohol drinker. On movantik , has had epidural shots, on oxycondein also . Alyson Stack MD Attn: Accounting,[address] [place], [address], [place] [facility] 11/24/2016 17:19:41 07/18/2017 text/html check up and refills of medications, no other complaints. NKDA. Cory Coats MA [facility], [facility] 07/18/2017 18:07:00 01/17/2018 text/html Re-evaluate the acid reflux, and hypertension , he seems doing well for thes issues. NKDA. PSA in July 2017 is normal 0. 4, he is informed today, he has no urinary tract symptomes. He forgot the number to call for his colonoscope ex. scheduling. Alyson Stack MD Attn: Accounting,[address] [place], [address], [facility] 01/17/2018 16:31:06 10/03/2018 text/html Old left ear issue, also chronic lower back pain for decades, and left foot pain even which has been operated on many years ago. , seeing a specialist for narcotic pain medication. NKDA. Refills of medications for BP and stomach. Alyson Stack MD Attn: Accounting,[address] [place], [address], [facility] 10/03/2018 13:10:59 03/20/2019 text/html Lack of energy. wanting B12 shot, NKDA. has enough medictions refilled. Alyson Stack MD Attn: Accounting,[address] [place], [address], [facility] 03/20/2019 16:07:43
--- OUTSIDE RECORDS SUMMARY | 2024-10-09 00:27 | XMS_ITS | Referral Summary ---
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
--- OUTSIDE RECORDS SUMMARY | 2024-10-09 00:27 | XMS_ITS | Continuity of Care Document ---
Author Organization [employer] Address [address] [place] [address] [place] [id number] Phone Care Team Providers Care Casing Crew Pusher Name Role Phone No Information Unavailable Unavailable [...] Diagnoses Date Provider Providers Copied on Encounter [facility], [address], [id number], tel:[phone] No Information 0 1-201 3 No Information [facility], [address], [id number], tel:[phone] [facility] Oct-0 8-201 3 Steffany Coronado. [address] [place] [address], [address], . tel:[phone] [facility], [address], [id number], tel:[phone] [facility] Oct-0 1-201 3 Bayerluisa Coronado. [address] [place] [address], [address], . tel:[phone] [facility], [address], [id number], tel:[phone] [facility] Sep-2 6-201 3 Bayerluisa Coronado. [facility]ly [facility] [place], [address], [place]. tel:[phone] [facility], [address], [id number], tel:[phone] [facility] Sep-2 4-201 3 Bayerluisa Coronado. [address] [place] [address], [address], [place]. tel:[phone] [facility], [address], [id number], [place] tel:[phone] [facility] Sep-2 0-201 3 [place]. [facility] [place], [address], [place]. tel:[phone] [facility], [address] [place], [place], [id number], [place] tel:[phone] [facility] Sep-1 8-201 3 [place]. [address] [place], [address], [place]. tel:[phone] [facility], [address], [place], [place], [id number], [place] tel:[phone] [facility] Zeke-1 9-201 3 [place]. [address] [place], [address], [place]. tel:[phone], [address], [place], [place], [id number], [place] tel:[phone] [facility] Zeke-1 6-201 3 [place]. [facility] [place], [address], [place]. tel:[phone] [facility], [address] [facility], [place], [place], [id number], [place] tel:[phone] [facility] Nov-1 2-201 3 [place]. [facility] [place], [address], [place]. tel:[phone] [facility], [address], [place], [place], [id number], [place] tel:[phone] [facility] Zeke-0 9-201 3 [place]. [facility] [place], [address], [place]. tel:[phone] [facility], [address], [place], [id number], [place] tel:[phone] [facility] Zeke-0 2-201 3 [place]. [address] [place], [address], . tel:[phone] [facility], [address], [id number], tel:[phone] [facility] 3 [place]. [facility] [place], [address], . tel:[phone] [facility], [address], [id number], tel:[phone] [facility] 3 [place]. [facility] [place], [address], . tel:[phone] [facility], [address], [id number], tel:[phone] [facility] 3 [place]. [facility] [place], [address], . tel:[phone] [facility], [address], [id number], tel:[phone] [facility] 3 [place]. [facility] [place], [address], . tel:[phone], [address], [id number], tel:[phone] [facility] [address] [place]. [facility] [place], [address], . tel:[phone] Family History Family Member Type Diagnosis Age At Onset No Information Payers Payer name Insurance type Covered libertarian ID Eder montano(s) [employer] [id number] [facility] [employer] LI X Social History Type Description [...]
--- OUTSIDE RECORDS SUMMARY | 2024-10-09 00:27 | XMS_ITS | Clinical Summary ---
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
--- NOTE | 2024-10-09 07:27 | WPDHPUPDATE1 ---
History and Physical Update Update Date/Time: 10/09/24 07:27 History and Physical has been reviewed, including an updated exam of the patient. There are NO changes in the patient's condition. Risks, benefits, and alternatives have been discussed and questions answered. Patient agrees to proceed with procedure. Proceed with turbt
[2024-10-09] MEDS: LACTATED RINGERS 1,000 ML 30 ML IV CONT (07:50)
--- NOTE | 2024-10-09 09:28 | WPDANESEPPF ---
Anes - Initial Pre Proc Eval Procedure: Operation Date: 10/09/24 09:15 Proposed Procedures p Trans Urethral Resection Bladder Tumor, Possible Gemcitabine Instillation - Qasim Crews MD Date/Time: 10/09/24 09:28 Surgeon: Qasim Crews MD Pre Op Diagnosis: gross hematuria Patient Data Age: 69 Gender: M Height: 1.7 m Weight: 73.8 kg Last Vital Signs Temp 97.8 F 10/09/24 08:23 Pulse 68 10/09/24 08:23 Resp 16 10/09/24 08:23 BP 131/78 10/09/24 08:23 Pulse Ox 98 10/09/24 08:23 O2 Del Method Room Air 10/09/24 08:23 Allergies Allergy/AdvReac Type Severity Reaction Status Date / Time NKDA Allergy Unknown Unknown Uncoded 10/09/24 08:21 NO KNOWN DRUG ALLERGIES Allergy Unknown Y Uncoded 10/09/24 08:21 (Class Allergy) Home Medications ?Medication ?Instructions ?Recorded ?Confirmed ?Type finasteride 1 mg tablet 1 mg PO DAILY 09/20/23 10/01/24 History melatonin 5 mg capsule 2.5 mg PO DIRECTED 09/20/23 10/01/24 History flaxseed 1 tab-cap PO DIRECTED 09/22/23 10/01/24 History cyclobenzaprine 10 mg tablet 10 mg PO TID 12/26/23 10/01/24 History hydrocodone 7.5 mg-acetaminophen 1 tablet PO TID PRN pain 12/26/23 10/01/24 History 300 mg tablet doxepin 25 mg capsule See Rx Instructions .Route 09/17/24 10/01/24 Rx .COMPLEX #30 caps hydrochlorothiazide 25 mg tablet See Rx Instructions .Route 09/17/24 10/01/24 Rx .COMPLEX #30 tabs amitriptyline 50 mg tablet 50 mg PO HS 10/01/24 10/01/24 History Patient hx anesthesia problems: none Family hx anesthesia problems: none Results Review: All pre-operative results and documents have been reviewed as part of the pre-operative evaluation. [facility] Social History Social History Smoking packs per day: 0.5 Smoking cigarettes per day: 10.0 Years smoked: 25 Smoking pack-years: 12.50 Smoking status: Former smoker Tobacco type: cigarettes Smoking end date: 08/14/20 Alcohol intake: never Substance use: never Substance use type: does not use Living arrangements: alone Spiritual care concerns: No Anes - Eval Final PreProcedure Day of Procedure 10/09/24 09:28 Patient weight: normal Lungs: normal air movement Airway: Mallampati scale class II Neurological: alert and oriented Last oral intake: >/= 8 hours ASA classification: II Emergent: no Anesthetic plan: proceed Anesthesia type and monitoring: general LMA and standard monitoring Results Review: All pre-operative results and documents have been reviewed as part of the pre-operative evaluation. HTN, bladder tumor by hx. Informed Consent: The patient's anesthetic plan and its attendant risks and benefits were discussed with the patient/family/POA. Questions were solicited and answers provided to the satisfaction of the patient/family/POA.
[2024-10-09] MEDS: ceFAZolin 2 GM/D5W 50 ML 2 GM/50 ML BAG IVPB (09:49)
--- NOTE | 2024-10-09 10:08 | S_PTH ---
PATIENT: Benitez Hylton LOC: [facility] U#:[id number] AGE/SX: 69/M ROOM: RE10/09/[address]: Qasim CrewsMD : 1955 BED: DIS: 10/09/2024 SPEC #: [id number] RECD: 10/09/24 11:55 STATUS: HILDAFlor RETrista #: [id number] GABBY: 10/09/24 10:[address]: Mars,Qasim Riley DEPT: [facility] Surgical RECD BY: Rebecca Cespedes ENTERED: 10/09/24 11:56 SP TYPE: Surgical OTHR DR: Hany Younger MD Tissues: A - Bladder Tumor B - Bladder Tumor Procedures: Hematoxylin and Eosin Stain Gross and Microscopic Level 4
[2024-10-09] MEDS: LIDOCAINE 2% GEL UROJET 10 ML PKG MUCOUS MEM (10:17)
--- NOTE | 2024-10-09 10:19 | W.PM.PROC2 ---
Procedure Note - Detailed Date of Procedure 10/09/24 Pre-op Diagnosis gross hematuria, bladder tumor medium 2.5 cm, Post-op Diagnosis Same Procedure Performed Transurethral resection of medium bladder tumor 2.5 cm cystoscopy, Hinson catheter placement Surgeon Qasim Crews MD Anesthesia General Description of Procedure Patient was taken to the operative suite correctly identified. Once anesthesia was obtained was placed in dorsal lithotomy position and prepped draped usual sterile fashion. Twenty-two Cook Islander scope was inserted the bladder. He had a 2.5 cm tumor located just lateral to the right ureteral orifice. Twenty-four [place] Islander resectoscope sheath was then placed. The tumor was resected. The base was sent separately. Base was fulgurated using electrocautery. There was good hemostasis. Sixteen Cook Islander Hinson was placed after 2% viscous lidocaine was inserted into the urethra. 10 cc were placed in balloon. Patient is taken recovery room and he will be given gemcitabine at that location. Hinson catheter will be removed at termination. He will call for path results in 1 week. This completes dictation. Please send a copy of op note to my office Estimated Blood Loss 0 Drains Yes Packing No Pathology Yes Complications No immediate complications Condition Stable Disposition PACU
[2024-10-09] MEDS: SODIUM CHLORIDE 0.9% IV 23.7 ML, GEMCITABINE HCL 1,000 MG BLADDER ×2 (10:32→10:33)
--- NOTE | 2024-10-09 10:34 | W.PM.PROC2 ---
Procedure Note - Detailed Date of Procedure 10/09/24 Pre-op Diagnosis Bladder cancer Post-op Diagnosis Same Procedure Performed Gemcitabine instillation Surgeon Qasim Crews MD Anesthesia None Description of Procedure Patient is in the recovery room post TURBT of a 2.5 cm tumor. Catheter had been in place. After properly gowned and draped the gemcitabine 1000 mg per 26.3 cc was instilled in the bladder. Two of the syringes were instilled. The catheter was plugged in the patient was rotated over the next hour. Catheter will be removed at termination procedure. This completes dictation Estimated Blood Loss 0 Drains Yes Packing No Pathology None sent Complications No immediate complications
[2024-10-09] MEDS: fentaNYL CITRATE INJ (*CRX) 100 MCG/2 ML VIAL 25 MCG IV PUSH ×3 (10:46→11:02)
== END 2024-10-09 12:51 | disposition home or self-care (01) ==
PROVIDERS: PCP Family Medicine; Visit Provider Urology
PROC: 0TBB8ZZ Excision of Bladder, Via Natural or Artificial Opening Endoscopic (ICD-10-PCS; CPT 52235; principal; 2024-10-09 09:15)
DX: C67.2 Malignant neoplasm of lateral wall of bladder (principal); R31.0 Gross hematuria; I10 Essential (primary) hypertension; Z79.891 Long term (current) use of opiate analgesic; Z98.890 Other specified postprocedural states; Z87.891 Personal history of nicotine dependence; Z86.718 Personal history of other venous thrombosis and embolism; Z80.0 Family history of malignant neoplasm of digestive organs; Z80.1 Family history of malignant neoplasm of trachea, bronchus and lung; Z82.49 Family history of ischemic heart disease and other diseases of the circulatory system
CPT/HCPCS: 52235; 51720; 88305; J0690; J1100; J2003; J2250; J2405; J2704; J3010; J7120; J9201

== ENCOUNTER 2024-10-17 08:29 | Outpatient (CLI) | payer MEDICARE, SELFPAY ==
--- OUTSIDE RECORDS SUMMARY | 2024-10-17 08:33 | XMS_ITS | CONTINUITY OF CARE DOCUMENT ---
Author Name maxx lilly Address Unknown Organization [facility] Address [address] [place] [address] Phone [phone] Care Team Providers Care Blanket Cutting Machine Operator Name Role Phone maxx lilly Unavailable Unavailable INSURANCE PROVIDERS Payer name Policy type / Coverage type Eduardo red democrat ID [facility] [id number]
[2024-10-17 09:19] LABS: Add Urine Microscopic? YES; Appearance Urine Clear (Clear); Bacteria Urine None Seen /hpf; Bilirubin Urine Negative (Negative); Blood Urine Negative (Negative); Color Urine Yellow (Yellow); Glucose Urine UA Negative (Negative); Ketones Urine Negative (Negative); Leukocyte Esterase Ur Trace LEU/UL (Negative); Nitrate Urine Negative (Negative); Non Pathogenic Casts 0-2; Protein Urine Negative (Negative); RBC Urine 0-2 /hpf (0-2); Specific Grav Ur 1.013 (1.001-1.035); Squamous Epithelial Cell Urine None Seen /hpf (Few); Urobilinogen Urine 0.2 mg/dL (<2.0); WBC Urine 0-5 /hpf (0-3)
[2024-10-17 09:29] LABS: Anion Gap 5 mmol/L (4-12); Blood Urea Nitrogen 19 mg/dL (9-20); Calcium 9.5 mg/dL (8.4-10.2); Carbon Dioxide 33 mmol/L (22-30); Chloride 100 mmol/L (98-107); Estimated Glomerular Filt Rate > 60; Glucose 108 mg/dL (65-110); Potassium 4.6 mmol/L (3.4-5.0); Sodium 138 mmol/L (137-145)
[2024-10-17 11:28] LABS: Hemoglobin A1C 5.6 % (<5.7)
== END 2024-10-17 08:30 | disposition home or self-care (01) ==
PROVIDERS: PCP Family Medicine; Visit Provider Family Medicine
DX: G47.00 Insomnia, unspecified (principal); I10 Essential (primary) hypertension; R53.83 Other fatigue; R73.01 Impaired fasting glucose; E87.5 Hyperkalemia
CPT/HCPCS: 36415; 80048; 81001; 82607; 83036; 84443

== ENCOUNTER 2024-10-19 14:38 | Outpatient (CLI) | payer MEDICARE, SELFPAY ==
--- OUTSIDE RECORDS SUMMARY | 2024-10-19 14:42 | XMS_ITS | Data Portability ---
Author Organization [facility] Address [address] [place] [address] [address] Assessment No assessment recorded. Plan of Treatment Reminders Order Date Submit Date Provider Last Modified By Organization Details Last Modified Time Details Appointments None recorded. Lab vitamin B12 + folate, serum or blood 2018 019 SYLWIA [facility]matters AGMABEL, [address] [place], [place] [address]Orlumet William, [address], [place], [address], 9 08:24:41 PSA, serum or plasma 2017 018 SYLWIA LABMABELRP, [address] [place], [place] [address]Ryla William, [address], [place], [address], 8 13:11:42 CMP, serum or plasma 2016 017 [facility], [address] [place], [place] [address]Ryla William, [address], [place], [address], 7 06:14:52 PSA, total + free, serum or plasma 2016 017 [facility], [address] [place], [place] [address]Ryla William, [address], [place], [address], 7 06:14:52 hemoglobin , qualitativ e, stool by immunologi c method 2016 017 SYLWIA 42matters AGMABEL, [address] [place], [place] [address]rest[employer] William, [address], [place], [address], 7 17:19:05 Referral gastroente rologist referral - please contact patient to schedule thanks 2017 018 Alessandro Bucio MD, [address], [address], [place], [address], 9 16:16:37 gastroente rologist referral - Please call patient to schedule appt. [email or web address] 2016 017 [email or web address] Eric Galdamez MD, [address] [place], [address], 7 15:21:34 Procedures None recorded. Surgeries None recorded. Imaging None recorded. Medication Orders omeprazole 40 mg capsule,de layed release 2018 019 [facility], [address] [place], [address], 9 13:21:36 losartan 100 mg-hydroch lorothiazi de 25 mg tablet 2018 019 [facility], [address] [place], [address], 9 13:21:35 omeprazole 20 mg capsule,de layed release 2017 018 [facility], [address] [place], [address], 9 12:55:00 losartan 100 mg-hydroch lorothiazi de 25 mg tablet 2017 018 [facility], [address] [place], [address], 8 16:40:14 omeprazole 40 mg capsule,de layed release 2017 018 [facility], [address] [place], [address], 8 16:32:53 losartan 100 mg-hydroch lorothiazi de 25 mg tablet 2017 018 [facility], [address] [place], [address], 8 16:32:54 finasterid e 5 mg tablet 2017 018 [facility], [address] [place], [address], 9 12:54:31 omeprazole 40 mg capsule,de layed release 2016 017 [facility], [address] [place], [address], 7 17:14:35 losartan 100 mg-hydroch lorothiazi de 25 mg tablet 2016 017 [facility], [address] [place], [address], 7 17:14:37 trazodone 50 mg tablet 2016 017 [facility], [address] [place], [address], 8 16:21:15 finasterid e 5 mg tablet 2016 017 [facility], [address] [place], [address], 9 12:54:31 Patient TargetsNo targets recorded. Patient Instructions Encounter Date Encounter Id Patient Instructions Last Modified By Organization Details Last Modified Time 11/24/2016 [id number] insomnia: care instructions [facility] Not available 11/24/2016 17:19:13 07/18/2017 [id number] learning about high blood pressure [facility] Not available 07/18/2017 16:29:24 benign prostatic hyperplasia: care instructions [facility] Not available 07/18/2017 16:29:24 01/17/2018 [id number] learning about high blood pressure [facility] Not available 01/17/2018 16:29:43 10/03/2018 [id number] learning about high blood pressure [facility] Not available 10/03/2018 13:10:54 03/20/2019 [id number] influenza (flu) vaccine: care instructions [facility] Not available 03/20/2019 15:57:12 Reason for Referral Please call patient to daniella salgado Referring Physician: Alyson Stack, Internal Medicine, Encounter Date: 11/24/2016 Alteration Tailor Apprentice Referral for Screening for malignant neoplasm of colon please contact patient to schedule thanks Referring Physician: Alyson Stack, Internal Medicine, Encounter Date: 01/17/2018 Results Created Date Observation Date Name Description Value Unit Range Abnormal Flag Note LastModifiedBy Organization Detail LastModifiedTime 12/10/19 17 12/10/2016 CMP, serum or plasm a glucose, serum 103 mg/dL 65-99 above high normal Not Available [facility] ([facility]) [address] [place], [address], 12/10/2016 06:14:52 12/10/19 17 12/10/2016 CMP, serum or plasm a BUN 14 mg/dL 6-24 Not Available [facility] ([facility]) [address] [place], [address], 12/10/2016 06:14:52 12/10/19 17 12/10/2016 CMP, serum or plasm a creatinine, serum 0.95 mg/dL 0.76-1 .27 Not Available [facility] ([facility]) [address] [place], [address], 12/10/2016 06:14:52 12/10/19 17 12/10/2016 CMP, serum or plasm a eGFR if nonafricn AM 87 mL/mi n/1.7 3 >59 Not Available [facility] ([facility]) [address] [place], [address], 12/10/2016 06:14:52 12/10/19 17 12/10/2016 CMP, serum or plasm a eGFR if africn AM 101 mL/mi n/1.7 3 >59 Not Available [facility] ([facility]) [address] [facility], [place], [address], 12/10/2016 06:14:52 12/10/19 17 12/10/2016 CMP, serum or plasm a BUN/creatini ne ratio 15 9-20 Not Available [facility] ([facility]) [address] [facility] [place], [address], 12/10/2016 06:14:52 12/10/19 17 12/10/2016 CMP, serum or plasm a sodium, serum 140 mmol/ L 134-14 4 Not Available [facility] ([facility]) [address] [facility], [place], [address], 12/10/2016 06:14:52 12/10/19 17 12/10/2016 CMP, serum or plasm a potassium, serum 5.0 mmol/ L 3.5-5. 2 Not Available [facility] ([facility]) [address] [facility], [place], [address], 12/10/2016 06:14:52 12/10/19 17 12/10/2016 CMP, serum or plasm a chloride, serum 97 mmol/ L 96-106 Not Available [facility] ([facility]) [address] [facility] [place], [address], 12/10/2016 06:14:52 12/10/1912/10/2016 CMP, serum or plasm a carbon dioxide, total 27 mmol/ L 18-29 Not Available [facility] ([facility]) [address] [facility] [place], [address], 12/10/2016 06:14:52 12/10/1912/10/2016 CMP, serum or plasm a calcium, serum 9.5 mg/dL 8.7-10 .2 Not Available [facility] ([facility]) [address] [place], [address], 12/10/2016 06:14:52 12/10/1912/1012/10/2016 CMP, serum or plasm a protein, total, serum 7.1 g/dL 6.0-8. 5 Not Available [facility] ([facility]) [address] [facility] [place], [address], 12/10/2016 06:14:52 12/10/19 17 12/10/2016 CMP, serum or plasm a albumin, serum 4.6 g/dL 3.5-5. 5 Not Available [facility] ([facility]) [address] [facility] [place], [address], 12/10/2016 06:14:52 12/10/1912/10/2016 CMP, serum or plasm a globulin, total 2.5 g/dL 1.5-4. 5 Not Available [facility] ([facility]) [address] [facility] [place], [address], 12/10/2016 06:14:52 12/10/1912/10/2016 CMP, serum or plasm a A/G ratio 1.8 1.2-2. 2 Not Available [facility] ([facility]) [address] [facility] [place], [address], 12/10/2016 06:14:52 12/10/1912/10/2016 CMP, serum or plasm a bilirubin, total 0.3 mg/dL 0.0-1. 2 Not Available [facility] ([facility]) [address] [facility] [place], [address], 12/10/2016 06:14:52 12/10/1912/10/2016 CMP, serum or plasm a alkaline phosphatase, S 62 IU/L 39-117 Not Available [facility] ([facility]) [address] [facility] [place], [address], 12/10/2016 06:14:52 12/10/1912/10/2016 CMP, serum or plasm a AST (SGOT) 20 IU/L 0-40 Not Available [facility] ([facility]) [address] [facility] [place], [address], 12/10/2016 06:14:52 12/10/1912/10/2016 CMP, serum or plasm a ALT (SGPT) 30 IU/L 0-44 Not Available [facility] ([facility]) [address] [facility] [place], [address], 12/10/2016 06:14:52 12/10/1912/10/2016 PSA, total + free, [...] CANNO T BE INTER PRETE D ABSOL [place] EV[place] NCE OF THE PRESE NCE OR ABSEN CE OF [place] SE. Not Available [facility] ([facility]) [address] [facility], [place], [address], 12/10/2016 06:14:52 12/10/1912/10/2016 PSA, total + free, serum or plasm a PSA, free 0.25 NG/mL n/a ANTHONY ECLIA METHO DOLOG Y. Not Available [facility] ([facility]) [address] [facility], [place], [address], 12/10/2016 06:14:52 12/10/1912/10/2016 PSA, total + free, [...] POPUL ATION OF MEN. Not Available [facility] ([facility]) [address] [facility], [place], [address], 12/10/2016 06:14:52 07/19/19 18 07/19/2017 PSA, serum [...] t be inter prete d as absol seldovia evide nce of the prese nce or absen ce of [place] se. Not Available [facility] ([facility]) [address] [facility], [place], [address], 07/19/2017 13:11:42 03/20/20 19 03/21/2019 vitam in B12 + folat e, serum or blood vitamin B12 1068 pg/mL 232-12 45 Not Available [facility] ([facility]) [address] [facility] [place], [address], 03/21/2019 08:24:41 03/20/20 19 03/21/2019 vitam in B12 + folat e, serum or blood folate (folic acid), serum >20.0 NG/mL >3.0 A serum folat e elsi ntrat ion of less than 3.1 ng/mL is consi dered to repre sent clini seth defic iency . Not Available [facility] ([facility]) [address] [facility], [place], [address], 03/21/2019 08:24:41 02/07/20 20 02/07/2020 LDCT, chest , for lung josece r lyric mitchell No observ ation record ed. [facility] (Imaging) [address] [place], [address], 02/08/2020 14:26:28 Result Notes None recorded. Problems Name Problem SNOMED Code Status Onset Date Resolution Date Notes Provider Name and Address Organization Details Recorded Time Cyclical vomiting syndrome 92093191 Active Alyson Stack MD Attn: Adan gupta,[address] [facility], [place], [address], [place] [facility] 6 10:54:26 Pain of shoulder region 38052435 Active Temitope Hancock LPN null, [place] - [facility] 5 09:07:46 Hypertensive disorder 31500800 Active Alyson Stack MD Attn: Adan gupta,[address] [facility], [place], [address], [place] - [facility] 6 10:54:26 Chronic pain syndrome 463728774 Active Alyson Stack MD Attn: Adan gupta,[address] [facility], [place], [address], [place] [facility] 6 10:54:26 Problem Notes None recorded. Procedures Surgical History Date Name Laterality Status Provider Name and Address Organization Details Recorded Time 4 Diagnostic colonoscopy completed Cory Coats [place] [facility] 12/05/2014 16:05:51 Knee Surgery completed Cory Coats MA [facility] 12/05/2014 16:05:51 Imaging Results None [...] Updated DateTime 8 167.64 cm 31 kg/m2 70212.0 2 g 98.1 [degF] 97 % 97 % 87 /min 126 mm[Hg] 70 mm[Hg] Cory Coats MA [place] - [facility] 8 16:23:57 Date Recorded Body height Body mass index (BMI) Body weight Body temperature Oxygen saturation Oxygen saturation in Arterial blood by Pulse oximetry Heart rate Systolic blood pressure Diastolic blood pressure Provider Name and Address Organization Details Last Updated DateTime 9 167.64 cm 29.8 kg/m2 06225.8 7 g 98.1 [degF] 94 % 94 % 96 /min 100 mm[Hg] 70 mm[Hg] Cory Coats [place] [facility] 9 13:00:51 Date Recorded Body height Body mass index (BMI) Body weight Body temperature Oxygen saturation Oxygen saturation in Arterial blood by Pulse oximetry Heart rate Systolic blood pressure Diastolic blood pressure Provider Name and Address Organization Details Last Updated DateTime 7 167.64 cm 30.5 kg/m2 62700.9 6 g 97.7 [degF] 96 % 96 % 87 /min 108 mm[Hg] 70 mm[Hg] Cory Coats MA [facility] 7 16:47:34 Date Recorded Systolic blood pressure Diastolic blood pressure Provider Name and Address Organization Details Last Updated DateTime 01/17/2018 120 mm[Hg] 80 mm[Hg] Alyson Stack MD Attn: Accounting,[address] [facility], [place], [address], [facility] 01/17/2018 16:26:41 Date Recorded Body height Body mass index (BMI) Body weight Heart rate Body temperature Oxygen saturation Oxygen saturation in Arterial blood by Pulse oximetry Provider Name and Address Organization Details Last Updated DateTime 8 167.64 cm 30.3 kg/m2 78865.9 7 g 88 /min 98.1 [degF] 96 % 96 % Juany Pacheco MA [facility] 8 16:05:51 Date Recorded Body height Body mass index (BMI) Body weight Body temperature Oxygen saturation Oxygen saturation in Arterial blood by Pulse oximetry Heart rate Systolic blood pressure Diastolic blood pressure Provider Name and Address Organization Details Last Updated DateTime 9 167.64 cm 29.4 kg/m2 32070.8 1 g 97.3 [degF] 95 % 95 % 94 /min 96 mm[Hg] 66 mm[Hg] Cory Coats MA [facility] 9 15:48:06 Social History Question Answer Notes LastModified by Organizat ion Details LastModified Time Tobacco Smoking Status Former Smoker cigarettes Cory Coats MA null, [facility] 12/05/2014 16:05:51 What Was The Date Of [...] mcg/0.3 mL dose 1 completed Jorge Luis fulton, [place] - [facility] 11/12/2020 16:39:53 COVID-19, mRNA, LNP-S, PF, 30 mcg/0.3 mL dose 1 completed Jorge Luis [place], [place] - [facility] 11/12/2020 16:40:10 Influenza, split virus, quadrivalent, preservative 6 completed Not Available [facility] 06/02/2019 02:40:55 Influenza, split virus, quadrivalent, preservative 8 completed Not Available [facility] 06/02/2019 02:44:14 Influenza, split virus, quadrivalent, preservative 9 completed Not Available [facility] 06/02/2019 02:38:44 Td (adult), 5 Lf tetanus toxoid, preservative free, adsorbed 5 completed Not Available [facility] 06/02/2019 02:41:30 Past Encounters Encounter ID Performer Location Encounter Start Date Encounter Closed Date Diagnosis/Indication Diagnosis SNOMED-CT Code Diagnosis ICD10 Code Diagnosis Note [id number] Alyson Stack MD [facility] (Adult Med) [address] [place] [phone] 12/05/2014 15:51:34 12/05/2014 16:58:20 Adult health examination 114039703 Cyclical v omiting syndrome 54694568 Ex-smoker 9557150 [id number] Alsyon Stack MD [facility] (Adult Med) [address] [place] [id number] 09/29/2015 10:19:16 09/29/2015 10:57:18 Cyclical vomiting syndrome 60884867 G43.A0 Hypertensive disorder 38 094346 I10 Chronic pain syndrome 37 8142451 G89.4 [id number] Alyson Stack MD [facility] (Adult Med) [address] [place] [id number] 03/29/2016 10:08:01 03/29/2016 11:55:05 Cyclical vomiting syndrome 43660274 G43.A0 Chronic pain syndrome 37 8854829 G89.4 Hypertensive disorder 38 332036 I10 Drug-induc ed constipation 30379480 K59.03 Chronic ob structive pulmonary disease 20956784 J44.9 Tobacco de pendence syndrome 98688635 F17.290 Needs infl uenza immunization 475878481 Z23 [id number] Alyson Stack MD [facility] (Adult Med) [address] [place] [id number] 11/24/2016 15:42:35 11/24/2016 17:22:27 Chronic low back pain 254750805 M54.5 Under the care of pain management . Hypertensive disorder 38 304238 I10 Low salt diet. Acid reflux 821401649 K2 1.9 Avoid grease food, or lie down after full meal. 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 Insomnia 713536277 G47.0 0 Screening for malignant neoplasm of colon 322839203 Z12.11 Under the care of his GI specialist Dr. Giselle Combs , he will be reminded for the F/U colonoscop y ex. [id number] Alyson Stack MD [facility] (Adult Med) [address] [place] [id number] 07/18/2017 16:08:55 07/18/2017 16:33:19 Acid reflux 103415145 K21.9 Avoid grease food, or lie down after full meal. Essential hypertension 10689349 I10 Low salt diet. Benign pro static hyperplasia 145061235 N40.0 Hypertensive disorder 38 162342 I10 Low salt diet. [id number] Alyson Stack MD [facility] (Adult Med) [address] [place] [id number] 01/17/2018 15:42:23 01/19/2018 13:15:39 Administration of influenza vaccine 01627999 Z23 He tolerated flu shot well. Essential hypertension 44072791 I10 Low salt diet. Well controlled . Acid reflux 959612083 K2 1.9 Avoid grease food, or lie down after full meal. Screening for malignant neoplasm of colon 350474677 Z12.11 Under the care of his GI specialist Dr. Giselle Combs , he will be reminded for the F/U colonoscop y ex. [id number] [facility] [address] [place] [id number] 10/03/2018 12:18:55 10/03/2018 13:11:13 Essential hypertension 72206232 I10 Low salt diet. Well controlled . Cyclical v omiting syndrome 02814343 G43.A0 [id number] Alyson Stack MD [facility] (Adult Med) [address] [place] [address] 03/20/2019 14:56:51 03/21/2019 10:22:15 Hypertensive disorder 34593114 I10 Low salt diet. Cyclical v omiting syndrome 43585847 G43.A0 Stable. Vitamin B1 2 deficiency (non anemic) 90239157 E53.8 Discussed with patient, he agreed for the blood test to determine if he has B12 deficiency . Administra tion of influenza vaccine 54807348 Z23 He tolerated flu shot well. Health Concerns Section Related Observation LastModified by Organization Detai ls LastModified Time None Recorded Concern Status LastModified by Organization Details LastModified Time None Recorded Advance Directives Directive None Recorded Payers Encounter Date Sequence Insurance Name Policy Number Policy Bennett Covered Member ID Bennett Member ID Guarantor Name 11/24/2016 1 [place] [id number] Benitez Mahaska [id number] Benitez Warner 07/18/2017 1 [place] [id number] Benitez Warner [id number] Benitez Warner 01/17/2018 1 [place] [id number] Benitez Mahaska [id number] Benitez Warner 10/03/2018 1 [place] [id number] Benitez Mahaska [id number] Benitez Warner 03/20/2019 1 [place] [id number] Benitez Mahaska [id number] Benitez Mahaska Notes Date Note Type Note Provider Name and Address Organization Details Recorded Time 11/24/2016 text/html Weight gained, h e also goes to pain management, has sleeping disturbance , disabling from chronic pain syndrome, NKDA, not a smoker, nor a alcohol drinker. On movantik , has had epidural shots, on oxycondein also . Alyson Stack MD Attn: Accounting,[address] [facility], [place], [address], [facility] 11/24/2016 17:19:41 07/18/2017 text/html check up and refills of medications, no other complaints. NKDA. Cory Coats MA [facility], [facility] 07/18/2017 18:07:00 01/17/2018 text/html Re-evaluate the acid reflux, and hypertension , he seems doing well for thes issues. NKDA. PSA in July 2017 is normal 0. 4, he is informed today, he has no urinary tract symptomes. He forgot the number to call for his colonoscope ex. scheduling. Alyson Stack MD Attn: Accounting,[address] [place], [address], [facility] 01/17/2018 16:31:06 10/03/2018 text/html Old left ear issue, also chronic lower back pain for decades, and left foot pain even which has been operated on many years ago. , seeing a specialist for narcotic pain medication. NKDA. Refills of medications for BP and stomach. Alyson Stack MD Attn: Accounting,[address] [place], [address], [facility] 10/03/2018 13:10:59 03/20/2019 text/html Lack of energy. wanting B12 shot, NKDA. has enough medictions refilled. Alyson Stack MD Attn: Accounting,[address] [place], [address], [facility] 03/20/2019 16:07:43
--- OUTSIDE RECORDS SUMMARY | 2024-10-19 14:42 | XMS_ITS | CONTINUITY OF CARE DOCUMENT ---
Author Name maxx lilly Address Unknown Organization [facility] Address [address] [facility] [address] [place] [address] Phone [phone] Care Team Providers Care Dishwashing Machine Repairer Name Role Phone maxx lilly Unavailable Unavailable INSURANCE PROVIDERS Payer name Policy type / Coverage type Eduardo red alliance party ID [facility] [id number]
--- OUTSIDE RECORDS SUMMARY | 2024-10-19 14:42 | XMS_ITS | Referral Summary ---
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
--- OUTSIDE RECORDS SUMMARY | 2024-10-19 14:42 | XMS_ITS | Clinical Summary ---
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
== END 2024-10-19 14:39 | disposition home or self-care (01) ==
PROVIDERS: PCP Family Medicine; Visit Provider Family Medicine
DX: Z79.899 Other long term (current) drug therapy (principal); R53.83 Other fatigue
CPT/HCPCS: 82530

== ENCOUNTER 2025-03-07 08:45 | Outpatient (CLI) | payer MEDICARE, SELFPAY ==
--- OUTSIDE RECORDS SUMMARY | 2025-03-07 08:59 | XMS_ITS | Clinical Summary ---
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
[2025-03-27 12:26] VITALS: BMI 25.0
--- NOTE | 2025-03-27 12:26 | P.SLEEP_ITS ---
Sleep Study - Home Unattended Date of Study: 03/07/25 Ordering Provider: Hany Younger MD Interpreting Provider: Zaira Salazar, DO Home Sleep Study Type: Watch PAT Height: 1.7 m Weight: 72.575 kg Body Mass Index: 25.0 Neck Circumference (inches): 15 [place]: 7 Reason for Sleep Study Difficulty sleeping, unrefreshing sleep Sleep History The patient is a 70-year-old male that had a sleep study ordered by his primary care physician for evaluation of sleep apnea. The patient denies awakening from sleep short of breath. He denies awakening at night with heartburn, belching or cough. He denies snoring. He denies waking up gasping for air throughout the night. He denies having breathing problems at night observed by himself or others. He denies sweating excessively at night. He denies having heart pa lpitations or irregular heartbeats during the night. He occasionally falls asleep during the day but never while driving. He denies sleep paralysis, cataplexy and hypnagogic/ hypnopompic hallucinations. He denies having trouble at school or work due to sleepiness. He denies feeling afraid of going to sleep. She denies having nightmares. He rarely remembers his dreams. He frequently has thoughts racing through his mind. He frequently feels sad, depressed and anxious. He frequently has muscular tension. He denies noticing parts of his body jerk. He denies kicking during the night. He denies having crawling and aching feelings in his legs and denies having leg pain during the night. He denies grinding his teeth during sleep denies awakening with morning jaw pain. He is frequently bothered by pain during the day and occasionally awakened by pain during the night. He rarely wakes up feeling stiff in the morning. He rarely wakes up with sore or achy muscles. He frequently wakes up with pain in the neck, spine and other joints. He goes to bed between 10 30-11 p.m. every night. The amount of time it takes for him to fall asleep is variable. The number of times he wakes up throughout the night is variable. He wakes up between 6-630 a.m. every morning. The total number of hours of sleep E gets per night is variable. He currently lives alone. He denies consuming any caffeinated beverages within 2 hours of bedtime. He denies engaging in physical exercise before bedtime. He will watch television before falling asleep. He will occasionally take naps in afternoon or the evening and they are refreshing. He consumes 2-3 cups of coffee per day. He denies alcohol and recreational drug use. [facility] Social History Social History Smoking packs per day: 0.5 Smoking cigarettes per day: 10.0 Years smoked: 25 Smoking pack-years: 12.50 Smoking status: Former smoker Tobacco type: cigarettes Smoking end date: 08/14/20 Alcohol intake: never Substance use: never Substance use type: does not use Living arrangements: alone Spiritual care concerns: No Medications Home Medications ?Medication ?Instructions ?Recorded ?Confirmed ?Type finasteride 1 mg tablet 1 mg PO DAILY 09/20/2310/01 History melatonin 5 mg capsule 2.5 mg PO DIRECTED 10/01/24 History flaxseed 1 tab-cap PO DIRECTED 02/0610/01/24 History cyclobenzaprine 10 mg tablet 10 mg PO TID 12/26/23 History hydrocodone 7.5 mg-acetaminophen 1 tablet PO TID PRN p ain 12/26/23 10/01/24 History 300 mg tablet amitriptyline 50 mg tablet 50 mg PO HS 10/01/24 History sulfamethoxazole 800 1 tablet PO Q12H #6 tabs Rx mg-trimethoprim 160 mg tablet (Bactrim DS) tramadol 50 mg tablet 50 mg PO Q6H PRN pain #20 ta bs 10/09/24 Rx doxepin 25 mg capsule See Rx Instructions .Route 0 01/30/25 Rx .COMPLEX #30 caps hydrochlorothiazide 25 mg tablet See Rx Instructions . Route 01/30/25 Rx .COMPLEX #30 tabs duloxetine 30 mg capsule,delayed See Rx Instructions . Route 03/20/25 Rx release .COMPLEX #30 ea Sleep Procedure The sleep study was completed using [employer] a technically adequate device with seven channels: peripheral arterial tone, actigraphy, body position, snore, respiratory movement, pulse oximetry, sleep staging, and heart rate. Prior to using the device, the patient received verbal and written instructions for its application and was provided with the help desk phone number for additional t elephonic instruction with 24-hour availability of qualified personnel to answer questions. The study was scored using [facility] guidelines. Sleep Architecture The total recording time is 9 hrs, 30 min. The total sleep time is 7 hrs, 11 min. Sleep latency is 29 minutes. REM latency is 107 minutes. The patient had 18 episodes of waking. Sleep architecture shows 17.7% deep sleep, 62.6% light sleep, and (as % Total Sleep Time) showed NREM (Light 62.6%; Deep 17.7%), and a 19.7% stage REM. The patient spent 22.7% of total sleep time in the supine position. Sleep efficiency was 75.61. Respiratory Analysis The overall AHI (pAHI 4%:) is 3.5. The overall AHI (pAHI 3%:) is 7.7. The central AHI is 2.5. The AHI was 7.8 in NREM and 7.2 in REM sleep. The AHI was 19.1 in Supine and 4.4 in Non-supine sleep. Percent of Nadeem Ramirez respirations is 0.0. Oximetry Data The oxygen desaturation index (PHIL 4%:) is 0.8. The mean saturation is 94%, and the lowest saturation is 90%. Time spent with saturation < 88% is 0.0 minutes. Snoring Profile Snoring average intensity is 40 dB. The patient snored above 45 decibels for 11.1 minutes, 2.6% of sleep time. Cardiac Profile The average pulse rate is 72 beats per minutes. The lowest pulse rate is 57 bpm. The highest pulse rate reported is 105 bpm. Atrial fibrillation was not detected. Premature beats occur <0.1 per minute. Assessment and Plan Assessment and Plan (1) Sleep disturbances: Code(s): G47.9 - Sleep disorder, unspecified Status: Acute Assessment and Plan: The patient had an overall AHI of 3.5 with desaturation down to 90%. This is not consistent with sleep disordered breathing. Due to the severity of the patient's symptoms, further evaluation is warranted. I recommend that the patient have a split study with the use of a hypnotic to ensure we obtain enough sleep data. Data The data obtained during this sleep study is adequate for interpretation. Certification This sleep study has been reviewed by a board certified sleep medicine physician.
== END 2025-03-11 09:41 | disposition home or self-care (01) ==
PROVIDERS: PCP Family Medicine; Visit Provider Family Medicine
DX: G47.00 Insomnia, unspecified (principal); R53.83 Other fatigue; I10 Essential (primary) hypertension; G47.9 Sleep disorder, unspecified
CPT/HCPCS: 95800

== ENCOUNTER 2025-03-08 11:04 | Outpatient (CLI) | payer MEDICARE, SELFPAY ==
--- NOTE | ~2025-03-08 | XR_ITS ---
XR lumbar spine 2-3V Indication: RADICULOPATHY, THOR AND LUMBAR REGION Comparison: None Findings: The vertebral heights are intact. No fracture or subluxation. The disc heights are intact. Soft tissues unremarkable Impression: No acute abnormality. Reviewed, dictated and finalized at location P. Impression: No acute abnormality.
--- NOTE | ~2025-03-08 | XR_ITS ---
XR thoracic spine 3V Indication: RADICULOPATHY, THOR AND LUMBAR REGION Comparison: None Findings: Moderate loss of vertebral height throughout, no fracture or subluxation. Moderate to severe loss of disc height throughout. Soft tissues unremarkable Impression: No acute abnormality. Reviewed, dictated and finalized at location P. Impression: No acute abnormality.
--- OUTSIDE RECORDS SUMMARY | 2025-03-08 11:24 | XMS_ITS | Data Portability ---
Author Organization KARISSA MUMTAZNani Kay Address [address] [facility] [place] [address] Assessment No assessment recorded. Plan of Treatment Reminders Order Date Submit Date Provider Last Modified By Organization Details Last Modified Time Details Appointments None recorded. Lab vitamin B12 + folate, serum or blood 2018 019 SYLWIA LABMABEL[facility], [facility], [address], [place], [address], 9 08:24:41 PSA, serum or plasma 2017 018 [facility], [facility] [address], [place], [address], 8 13:11:42 CMP, serum or plasma 2016 017 SYLWIA LABSCRP, [facility], [address], [place], [address], 7 06:14:52 PSA, total + free, serum or plasma 2016 017 [facility], [facility], [address], [place], [address], 7 06:14:52 hemoglobin , qualitativ e, stool by immunologi c method 2016 017 SY[facility]IA [facility], [address], [address], [place], [address], 7 17:19:05 Referral gastroente rologist referral - please contact patient to schedule thanks 2017 018 Alessandro Bucio MD, [address] [facility], [address], [place], [address], 9 16:16:37 gastroente rologist referral - Please call patient to schedule appt. [email or web address] 2016 017 [email or web address] Eric Galdamez MD, [address] [place], [address], 7 15:21:34 Procedures None recorded. Surgeries None recorded. Imaging None recorded. Medication Orders omeprazole 40 mg capsule,de layed release 2018 019 [facility], [address] [place], [address], 9 13:21:36 losartan 100 mg-hydroch lorothiazi de 25 mg tablet 2018 019 [facility], [address] [place], [address], 9 13:21:35 omeprazole 20 mg capsule,de layed release 2017 018 [facility], [address] [place], [address], 9 12:55:00 losartan 100 mg-hydroch lorothiazi de 25 mg tablet 2017 018 [facility], [address] [place], [address], 8 16:40:14 omeprazole 40 mg capsule,de layed release 2017 018 [facility], [address] [place], [address], 8 16:32:53 losartan 100 mg-hydroch lorothiazi de 25 mg tablet 2017 018 [facility], [address] [place], [address], 8 16:32:54 finasterid e 5 mg tablet 2017 018 [facility], [address] [place], [address], 9 12:54:31 omeprazole 40 mg capsule,de layed release 2016 017 [facility], [address] [place], [address], 7 17:14:35 losartan 100 mg-hydroch lorothiazi de 25 mg tablet 2016 017 [facility], [address] [place], [address], 7 17:14:37 trazodone 50 mg tablet 2016 017 [facility], [address] [place], [address], 8 16:21:15 finasterid e 5 mg tablet 2016 017 [facility], [address] [place], [address], 9 12:54:31 Patient TargetsNo targets recorded. Patient Instructions Encounter Date Encounter Id Patient Instructions Last Modified By Organization Details Last Modified Time 11/24/2016 [id number] insomnia: care instructions [facility] Not available 11/24/2016 17:19:13 07/18/2017 [id number] learning about high blood pressure [facility] Not available 07/18/2017 16:29:24 benign prostatic hyperplasia: care instructions [facility] Not available 07/18/2017 16:29:24 01/17/2018 [id number] learning about high blood pressure [facility] Not available 01/17/2018 16:29:43 10/03/2018 [id number] learning about high blood pressure [facility] Not available 10/03/2018 13:10:54 03/20/2019 [id number] influenza (flu) vaccine: care instructions [facility] Not available 03/20/2019 15:57:12 Reason for Referral Please call patient to daniella salgado Referring Physician: Alyson Stack, Internal Medicine, Encounter Date: 11/24/2016 Incident Response Coordinator Referral for Screening for malignant neoplasm of colon please contact patient to schedule thanks Referring Physician: Alysno Stack, Internal Medicine, Encounter Date: 01/17/2018 Results Created Date Observation Date Name Description Value Unit Range Abnormal Flag Note LastModifiedBy Organization Detail LastModifiedTime 12/10/19 17 12/10/2016 CMP, serum or plasm a glucose, serum 103 mg/dL 65-99 above high normal Not Available [facility] ([facility]) [address] [place], [address], 12/10/2016 06:14:52 12/10/19 17 12/10/2016 CMP, serum or plasm a BUN 14 mg/dL 6-24 Not Available [facility] ([facility]) [address] [place], [address], 12/10/2016 06:14:52 12/10/19 17 12/10/2016 CMP, serum or plasm a creatinine, serum 0.95 mg/dL 0.76-1 .27 Not Available [facility] ([facility]) [address] [place], [address], 12/10/2016 06:14:52 12/10/19 17 12/10/2016 CMP, serum or plasm a eGFR if nonafricn AM 87 mL/mi n/1.7 3 >59 Not Available [facility] ([facility]) [address] [place], [address], 12/10/2016 06:14:52 12/10/19 17 12/10/2016 CMP, serum or plasm a eGFR if africn AM 101 mL/mi n/1.7 3 >59 Not Available [facility] ([facility]) [address] [facility] [place], [address], 12/10/2016 06:14:52 12/10/1912/10/2016 CMP, serum or plasm a BUN/creatini ne ratio 15 9-20 Not Available [facility] ([facility]) [address] [facility] [place], [address], 12/10/2016 06:14:52 12/10/1912/10/2016 CMP, serum or plasm a sodium, serum 140 mmol/ L 134-14 4 Not Available [facility] ([facility]) [address] [facility] [place], [address], 12/10/2016 06:14:52 12/10/19 17 12/10/2016 CMP, serum or plasm a potassium, serum 5.0 mmol/ L 3.5-5. 2 Not Available [facility] ([facility]) [address] [facility], [place], [address], 12/10/2016 06:14:52 12/10/1912/10/2016 CMP, serum or plasm a chloride, serum 97 mmol/ L 96-106 Not Available [facility] ([facility]) [address] [facility] [place], [address], 12/10/2016 06:14:52 12/10/1912/10/2016 CMP, serum or plasm a carbon dioxide, total 27 mmol/ L 18-29 Not Available [facility] ([facility]) [address] [facility] [place], [address], 12/10/2016 06:14:52 12/10/1912/10/2016 CMP, serum or plasm a calcium, serum 9.5 mg/dL 8.7-10 .2 Not Available [facility] ([facility]) [address] [facility] [place], [address], 12/10/2016 06:14:52 12/10/19 17 12/10/2016 CMP, serum or plasm a protein, total, serum 7.1 g/dL 6.0-8. 5 Not Available [facility] ([facility]) [address] [facility] [place], [address], 12/10/2016 06:14:52 12/10/19 17 12/10/2016 CMP, serum or plasm a albumin, serum 4.6 g/dL 3.5-5. 5 Not Available [facility] ([facility]) [address] [facility] [place], [address], 12/10/2016 06:14:52 12/10/1912/10/2016 CMP, serum or plasm a globulin, total 2.5 g/dL 1.5-4. 5 Not Available [facility] ([facility]) [address] [facility] [place], [address], 12/10/2016 06:14:52 12/10/1912/10/2016 CMP, serum or plasm a A/G ratio 1.8 1.2-2. 2 Not Available [facility] ([facility]) [address] [facility] [place], [address], 12/10/2016 06:14:52 12/10/19 17 12/10/2016 CMP, serum or plasm a bilirubin, total 0.3 mg/dL 0.0-1. 2 Not Available [facility] ([facility]) [address] [place], [address], 12/10/2016 06:14:52 12/10/1912/10/2016 CMP, serum or plasm a alkaline phosphatase, S 62 IU/L 39-117 Not Available [facility] ([facility]) [address] [place], [address], 12/10/2016 06:14:52 12/10/19 17 12/10/2016 CMP, serum or plasm a AST (SGOT) 20 IU/L 0-40 Not Available [facility] ([facility]) [address] [facility], [place], [address], 12/10/2016 06:14:52 12/10/1912/10/2016 CMP, serum or plasm a ALT (SGPT) 30 IU/L 0-44 Not Available [facility] ([facility]) [address] [facility], [place], [address], 12/10/2016 06:14:52 12/10/19 17 12/10/2016 PSA, total + free, serum or plasm [...] KITS CANNO T BE USED INTER WEISS EAILIANA . RESUL TS CANNO T BE INTER PRETE D ABSOL BOZENA EVIDE NCE OF THE PRESE NCE OR ABSEN CE OF VINNY BURROUGHS SE. Not Available [facility] ([facility]) [address] [facility], [place], [address], 12/10/2016 06:14:52 12/10/1912/10/2016 PSA, total + free, serum or plasm a PSA, free 0.25 NG/mL n/a ANTHONY ECLIA METHO DOLOG Y. Not Available [facility] ([facility]) [address] [facility], [place], [address], 12/10/2016 06:14:52 12/10/19 17 12/10/2016 PSA, total + free, serum or plasm a % free PSA 25.0 % THE TABLE BELOW LISTS THE PROBA BILIT Y OF PROST ATE CANCE R FOR MEN WITH NON-S USPIC IOUS LYSSA RESUL TS AND TOTAL PSA BETWE EN 4 AND 10 NG/ML , BY PATIE NT AGE (RYDER MOOREA ET AL, JEANNE 1998, 279:1 542). % [...] POPUL ATION OF MEN. Not Available [facility] ([facility]) [address] [facility], [place], [address], 12/10/2016 06:14:52 07/19/19 18 07/19/2017 PSA, serum [...] t be inter prete d as absol obzena evide nce of the prese nce or absen ce of vinny mcghee se. Not Available [facility] ([facility]) [address] [facility], [place], [address], 07/19/2017 13:11:42 03/20/20 19 03/21/2019 vitam in B12 + folat e, serum or blood vitamin B12 1068 pg/mL 232-12 45 Not Available [facility] ([facility]) [address] [facility], [place], [address], 03/21/2019 08:24:41 03/20/20 19 03/21/2019 vitam in B12 + folat e, serum or blood folate (folic acid), serum >20.0 NG/mL >3.0 A serum folat e elsi ntrat ion of less than 3.1 ng/mL is consi dered to repre sent clini seth defic iency . Not Available [facility] ([facility]) [address] [facility], [place], [address], 03/21/2019 08:24:41 02/07/20 20 02/07/2020 LDCT, chest , for lung cance r chrise paula No observ ation record ed. [facility] (Imaging) [address] [place], [address], 02/08/2020 14:26:28 Result Notes None recorded. Problems Name Problem SNOMED Code Status Onset Date Resolution Date Notes Provider Name and Address Organization Details Recorded Time Cyclical vomiting syndrome 11395554 Active Alyson Stack MD Attn: Adan gupta,[address] [place], [address], [place] [facility] 6 10:54:26 Pain of shoulder region 76531902 Active Temitope Hancock LPN null, [place] [facility] 5 09:07:46 Hypertensive disorder 60035472 Active Alyson Stack MD Attn: Adan gupta,[address] [facility], [place], [address], [place] [facility] 6 10:54:26 Chronic pain syndrome 074424102 Active Alyson Stack MD Attn: Adan gupta,[address] [facility], [place], [address], [place] [facility] 6 10:54:26 Problem Notes None recorded. Procedures Surgical History Date Name Laterality Status Provider Name and Address Organization Details Recorded Time 4 Diagnostic colonoscopy completed Cory Coats [place] [facility] 12/05/2014 16:05:51 Knee Surgery completed Cory Coats [place] [facility] 12/05/2014 16:05:51 Imaging Results None recorded. [...] Updated DateTime 8 167.64 cm 31 kg/m2 09744.0 2 g 98.1 [degF] 97 % 97 % 87 /min 126/70 mm[Hg] Cory Coats MA [facility] 8 16:23:57 Date Recorded Body height Body mass index (BMI) Body weight Body temperature Oxygen saturation Oxygen saturation in Arterial blood by Pulse oximetry Heart rate Systolic And Diastolic Provider Name and Address Organization Details Last Updated DateTime 9 167.64 cm 29.8 kg/m2 84191.8 7 g 98.1 [degF] 94 % 94 % 96 /min 100/70 mm[Hg] Cory Coats MA [facility] 9 13:00:51 Date Recorded Body height Body mass index (BMI) Body weight Body temperature Oxygen saturation Oxygen saturation in Arterial blood by Pulse oximetry Heart rate Systolic And Diastolic Provider Name and Address Organization Details Last Updated DateTime 7 167.64 cm 30.5 kg/m2 00884.9 6 g 97.7 [degF] 96 % 96 % 87 /min 108/70 mm[Hg] Cory Coats MA [facility] 7 16:47:34 Date Recorded Systolic And Diastolic Provider Name and Address Organization Details Last Updated DateTime 01/17/2018 120/80 mm[Hg] Alyson Stack MD Attn: Accounting,[address] , [place], [address], [facility] 01/17/2018 16:26:41 Date Recorded Body height Body mass index (BMI) Body weight Heart rate Body temperature Oxygen saturation Oxygen saturation in Arterial blood by Pulse oximetry Provider Name and Address Organization Details Last Updated DateTime 8 167.64 cm 30.3 kg/m2 99299.9 7 g 88 /min 98.1 [degF] 96 % 96 % Juanytiki Pacheco [facility] 8 16:05:51 Date Recorded Body height Body mass index (BMI) Body weight Body temperature Oxygen saturation Oxygen saturation in Arterial blood by Pulse oximetry Heart rate Systolic And Diastolic Provider Name and Address Organization Details Last Updated DateTime 9 167.64 cm 29.4 kg/m2 60062.8 1 g 97.3 [degF] 95 % 95 % 94 /min 96/66 mm[Hg] Cory Coats MA [facility] 9 15:48:06 Social History Question Answer Notes LastModified by Organizat ion Details LastModified Time Tobacco Smoking Status Former Smoker cigarettes RICHAR Kelsey [facility] 12/05/2014 16:05:51 What Was The Date Of [...] mcg/0.3 mL dose completed Jorge Luis fulton [facility] 11/12/2020 16:39:53 COVID-19, mRNA, LNP-S, PF, 30 mcg/0.3 mL dose 1 completed Jorge Luis [facility] [place] - [facility] 11/12/2020 16:40:10 Influenza, split virus, quadrivalent, preservative 6 completed Not Available [facility] 06/02/2019 02:40:55 Influenza, split virus, quadrivalent, preservative 8 completed Not Available [facility] 06/02/2019 02:44:14 Influenza, split virus, quadrivalent, preservative 9 completed Not Available [facility] 06/02/2019 02:38:44 Td (adult), 5 Lf tetanus toxoid, preservative free, adsorbed 5 completed Not Available [facility] 06/02/2019 02:41:30 Past Encounters Encounter ID Performer Location Encounter Start Date Encounter Closed Date Diagnosis/Indication Diagnosis SNOMED-CT Code Diagnosis ICD10 Code Diagnosis IMO Codes Diagnosis Note [id number] Alyson Stack MD [facility] (Adult Med) [address] [place] [address] 12/05/2014 15:51:34 12/05/2014 16:58:20 Adult health examination 134482928 Cyclical v omiting syndrome 42637568 Ex-smoker 5596219 [id number] Alyson Stack MD [facility] (Adult Med) [address] [place] [address] 09/29/2015 10:19:16 09/29/2015 10:57:18 Cyclical vomiting syndrome 70762717 G43.A0 Hypertensive disorder 38 782051 I10 Chronic pain syndrome 37 5288761 G89.4 [id number] Alyson Stack MD [facility] (Adult Med) [address] [place] [address] 03/29/2016 10:08:01 03/29/2016 11:55:05 Cyclical vomiting syndrome 85704810 G43.A0 Chronic pain syndrome 37 4900576 G89.4 Hypertensive disorder 38 939061 I10 Drug-induc ed constipation 31666777 K59.03 Chronic ob structive pulmonary disease 36731353 J44.9 Tobacco de pendence syndrome 80055639 F17.290 Needs infl uenza immunization 754357240 Z23 [id number] Alyson Stack MD [facility] (Adult Med) [address] [place] [phone] 11/24/2016 15:42:35 11/24/2016 17:22:27 Chronic low back pain 509466918 M54.5 Under the care of pain management . Hypertensive disorder 38 748954 I10 Low salt diet. Acid reflux 845438274 K2 1.9 Avoid grease food, or lie down after full meal. 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 Insomnia 728488485 G47.0 0 Screening for malignant neoplasm of colon 964079292 Z12.11 Under the care of his GI specialist Dr. Giselle Combs , he will be reminded for the F/U colonoscop y ex. [id number] Alyson Stack MD [facility] (Adult Med) [address] [place] [phone] 07/18/2017 16:08:55 07/18/2017 16:33:19 Acid reflux 699071221 K21.9 Avoid grease food, or lie down after full meal. Essential hypertension 05461654 I10 Low salt diet. Benign pro static hyperplasia 618889236 N40.0 Hypertensive disorder 38 483552 I10 Low salt diet. [id number] Alyson Stack MD [facility] (Adult Med) [address] [place] [phone] 01/17/2018 15:42:23 01/19/2018 13:15:39 Administration of influenza vaccine 61878131 Z23 He tolerated flu shot well. Essential hypertension 79359964 I10 Low salt diet. Well controlled . Acid reflux 760862486 K2 1.9 Avoid grease food, or lie down after full meal. Screening for malignant neoplasm of colon 680655878 Z12.11 Under the care of his GI specialist Dr. Giselle Combs , he will be reminded for the F/U colonoscop y ex. [id number] Alyson Stack MD [facility] (Adult Med) [address] [place] [id number] 10/03/2018 12:18:55 10/03/2018 13:11:13 Essential hypertension 97798375 I10 Low salt diet. Well controlled . Cyclical v omiting syndrome 62567928 G43.A0 [id number] Alyson Stack MD [facility] [address] [place] [address] 03/20/2019 14:56:51 03/21/2019 10:22:15 Hypertensive disorder 22953988 I10 Low salt diet. Cyclical v omiting syndrome 27396094 G43.A0 Stable. Vitamin B1 2 deficiency (non anemic) 90115677 E53.8 Discussed with patient, he agreed for the blood test to determine if he has B12 deficiency . Administra tion of influenza vaccine 94277236 Z23 He tolerated flu shot well. Health Concerns Section Related Observation LastModified by Organization Detai ls LastModified Time None Recorded Concern Status LastModified by Organization Details LastModified Time None Recorded Advance Directives Directive None Recorded Payers Insurance Date Sequence Insurance Name Policy Number Policy Bennett Covered Member ID Bennett Member ID Guarantor Name 03/17/2019 1 [place] [id number] Benitez Mcdanielline [id number] Benitez Hylton Notes Date Note Type Note Provider Name and Address Organization Details Recorded Time 11/24/2016 text/html ROS as noted in the HPI Weight gained, he also goes to pain management, has sleeping disturbance , disabling from chronic pain syndrome, NKDA, not a smoker, nor a alcohol drinker. On movantik , has had epidural shots, on oxycondein also . Alyson Stack MD Attn: Accounting,[address] [place], [address], [facility] 11/24/2016 17:19:41 07/18/2017 text/html ROS as noted in the HPI check up and refills of medications, no other complaints. NKDA. RICHAR Kelsey, [place] [facility] 07/18/2017 18:07:00 01/17/2018 text/html ROS as noted in the HPI Re-evaluate the acid reflux, and hypertension , he seems doing well for thes issues. NKDA. PSA in July 2017 is normal 0. 4, he is informed today, he has no urinary tract symptomes. He forgot the number to call for his colonoscope ex. scheduling. Alyson Stack MD Attn: Accounting,[address] [facility], [place], [address], [facility] 01/17/2018 16:31:06 10/03/2018 text/html ROS as noted in the HPI Old left ear issue, also chronic lower back pain for decades, and left foot pain even which has been operated on many years ago. , seeing a specialist for narcotic pain medication. NKDA. Refills of medications for BP and stomach. Alyson Stack MD Attn: Accounting,[address] [place], [address], [facility] 10/03/2018 13:10:59 03/20/2019 text/html ROS as noted in the HPI Lack of energy. wanting B12 shot, NKDA. has enough medictions refilled. Alyson Stack MD Attn: Accounting,[address] [place], [address], [facility] 03/20/2019 16:07:43
--- OUTSIDE RECORDS SUMMARY | 2025-03-08 11:24 | XMS_ITS | Patient Health Record ---
Author Organization [facility] [email or web address] Address [address] [facility] [address] [place] [address] Support Name Relationship Address Phone CHUCK PARRISH Guarantor Unknown Reason For Referral No Information Medications Medication SIG (Take, Route, Frequency, Duration) Notes Start Date End Date Status Amitriptyline HCl 50 MG Tablet Oral Active Zolpidem Tartrate 10 MG Tablet Oral Active Olmesartan Medoxomil 20 MG Tablet Oral Active Plan Of Treatment No Information Insurance Providers Payer Name Payer Address Payer Phone Subscriber Number Group Number Insured Name Patient Relationship to Insured Coverage Start Date Coverage End Date [facility] [address] [place] [address] [id number] CHUCK PARRISH Self - patient is the insured
--- OUTSIDE RECORDS SUMMARY | 2025-03-08 11:24 | XMS_ITS | Clinical Summary ---
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
== END 2025-03-08 11:05 | disposition home or self-care (01) ==
PROVIDERS: PCP Family Medicine; Visit Provider Pain Medicine Interventional Pain Medicine
DX: R29.890 Loss of height (principal); M54.14 Radiculopathy, thoracic region; M54.16 Radiculopathy, lumbar region
CPT/HCPCS: 72072; 72100

== ENCOUNTER 2025-04-22 13:33 | Outpatient (CLI) | payer MEDICARE, SELFPAY | END 2025-04-22 13:34 | disposition home or self-care (01) | LOC: ANHLAB 13:34 | PROVIDERS: PCP Family Medicine; Visit Provider Family Medicine | DX: Z79.899 Other long term (current) drug therapy (principal) | CPT/HCPCS: 36415; 82306 ==